=== PATIENT | female | born 1950 | race Caucasian/White ===

== ENCOUNTER → 2016-10-19 | Outpatient (CLI) | payer MEDICARE ==
--- NOTE | 2016-10-20 08:27 | US ---
EXAMINATION TYPE: US pelvic complete DATE OF EXAM: 10/19/2016 4:20 PM COMPARISON: CT and US in PACS CLINICAL HISTORY: R10.2 Pelvic pain. Previous left ovarian cyst/ pt states pelvic pain TECHNIQUE: Transabdominal (TA) Date of LMP: Age 52 EXAM MEASUREMENTS: Uterus: 7.6 x 2.4 x 3.1 cm cm Endometrial Stripe: 0.3 cm Right Ovary: 2.5 x 1.5 x 1.5 cm Left Ovary: 4.6 x 5.6 x 4.2 cm TECHNOLOGIST IMPRESSION: Pt stated bladder felt very full and did not want transvaginal at this ti me 1. Uterus: Anteverted Heterogeneous, difficult to visualize 2. Endometrium: wnl 3. Right Ovary: wnl 4. Left Ovary: Cyst= 4.1 x 3.5 x 4.6, essentially unchanged from recent CT in PACS 5. Bilateral Adnexa: wnl 6. Posterior cul-de-sac: wnl IMPRESSION: SIMPLE APPEARING, 4.6 CM LEFT OVARIAN CYST.
== END | disposition home or self-care (01) ==
LOC: RADUSWWP 16:02
PROVIDERS: ATTEND Family Medicine
DX: N83.202 Unspecified ovarian cyst, left side (principal)
CPT/HCPCS: 76856

== ENCOUNTER → 2019-07-17 | Outpatient (CLI) | payer MEDICARE ==
--- NOTE | 2019-07-18 09:40 | XR ---
Bilateral knees HISTORY: Bilateral knee pain 3 views of each knee submitted on a total of 7 images, correlation to prior right knee dated 3 There is chondrocalcinosis bilaterally. Marginal spurring present at the medial compartments, joint s pace loss present in the medial compartments. Marginal spurring also noted laterally on the right kne e greater than left. Difficult to exclude knee joint effusions in the suprapatellar region. Bone mine ralization and alignment are maintained. IMPRESSION: Correlate for crystal deposition arthropathy, osteoarthritis.
== END | disposition home or self-care (01) ==
LOC: RADXRMAIN 15:43
PROVIDERS: ATTEND Family Medicine
DX: M17.10 Unilateral primary osteoarthritis, unspecified knee (principal); M25.562 Pain in left knee; M25.561 Pain in right knee

== ENCOUNTER → 2019-08-13 | Outpatient (CLI) | payer MEDICARE ==
--- NOTE | 2019-08-13 11:06 | XR ---
EXAMINATION TYPE: XR cervical spine comp DATE OF EXAM: 08/13/2019 COMPARISON: NONE HISTORY: Pain TECHNIQUE: Four views are submitted. FINDINGS: The odontoid is intact. There are no compression deformities. The prevertebral soft tissue structur es are within normal limits. Calcification the soft tissue the neck likely vascular. There is multil evel hypertrophic and degenerative disc disease with severe changes C5-6, C6-C7. Multilevel facet art hropathy. Foraminal encroachment noted bilaterally C5-6 and C6-C7. IMPRESSION: 1. Multilevel moderate and severe degenerative disc disease with large anterior hypertrophic spurs an d multilevel foraminal encroachment. Recommend follow-up MRI.
== END | disposition home or self-care (01) ==
LOC: RADXRMAIN 10:43
PROVIDERS: ATTEND Family Medicine
DX: M50.30 Other cervical disc degeneration, unspecified cervical region (principal)
CPT/HCPCS: 72050

== ENCOUNTER 2020-01-07 00:18 | Emergency (ER) | payer MEDICARE ==
[2020-01-07 00:24] VITALS: PULSE 58; RESP 18; TEMP 98.4
[2020-01-07] MEDS ORDERED: KETOROLAC 30 MG/ML 1 ML VIAL IVP STA (00:42)
[2020-01-07] MEDS ORDERED: SODIUM CHLORIDE 0.9% 500 ML 500 ML IV STA (00:43)
[2020-01-07] MEDS ORDERED: PANTOPRAZOLE 40 MG/10 ML VIAL IVP STA (00:43)
--- NOTE | 2020-01-07 00:49 | ED ---
General Adult HPI - General Chief complaint: Headache Stated complaint: high BP Time Seen by Provider: 01/07/20 00:31 Source: patient Mode of arrival: ambulatory Limitations: no limitations - History of Present Illness Initial comments: Patient is a 70-year-old female, with history of A. fib, hypertension, presenting to the emergency department with complaints of a headache along with elevated blood pressure for the past week. Patient states she went to her PCP yesterday for a checkup and they recommended going into the ER because of her symptoms. Patient was started on a new blood pressure medication yesterday, coreg. Patient also admits that she forgot to take her thyroid medication for approximately 2 months. She restarted a few days ago. Patient also admits to mild nausea, heartburn. She states that she feels like her "heart is beating really fast and it is hard for her to sleep." She denies any chest pain, shortness of breath. She doesn't history of anxiety. She states her headache will not go away as well. She denies any recent fever, chills, cough, congestion, urinary complaints. She states she has been trying to drink water. She has no further complaints at this time. Upon arrival to the ER, her vital signs are stable. - Related Data Previous Rx's Medication Instructions Recorded Cephalexin [Keflex] 500 mg PO BID 5 Days #10 cap 01/07/20 Allergies Allergy/AdvReac Type Severity Reaction Status Date / Time amoxicillin [From Augmentin] Allergy Nausea Verified 01/07/20 00:24 clavulanic acid Allergy Nausea Verified 01/07/20 00:24 [From Augmentin] levofloxacin [From Levaquin] Allergy Nausea Verified 01/07/20 00:24 milk Allergy Nausea & Verified 01/07/20 00:24 Vomiting sulfamethoxazole Allergy Nausea Verified 01/07/20 00:24 [From Bactrim] trimethoprim [From Bactrim] Allergy Nausea Verified 01/07/20 00:24 Review of Systems ROS Statement: Those systems with pertinent positive or pertinent negative responses have been documented in the HPI. ROS Other: All systems not noted in ROS Statement are negative. Past Medical History Past Medical History: Atrial Fibrillation, Hypertension Additional Past Medical History / Comment(s): Diverticulitits History of Any Multi-Drug Resistant Organisms: None Reported Past Surgical History: Appendectomy, Cholecystectomy, Tubal Ligation Additional Past Surgical History / Comment(s): colon surgery, heart ablation Past Psychological History: No Psychological Hx Reported Smoking Status: Never smoker Past Alcohol Use History: None Reported Past Drug Use History: None Reported General Exam - General Exam Comments Initial Comments: GENERAL: Well-appearing, well-nourished and in no acute distress, appears mildly anxious. HEAD: Atraumatic, normocephalic. EYES: Pupils equal round and reactive to light, extraocular movements intact, sclera anicteric, conjunctiva are normal. ENT: TMs normal, nares patent, oropharynx clear without exudates. Moist mucous m embranes. NECK: Normal range of motion, supple without lymphadenopathy or JVD. LUNGS: Breath sounds clear to auscultation bilaterally and equal. No wheezes rales or rhonchi. HEART: Regular rate and rhythm without murmurs, rubs or gallops. ABDOMEN: Soft, nontender, normoactive bowel sounds. No guarding, no rebound. No masses appreciated. : Deferred EXTREMITIES: Normal range of motion, no pitting or edema. No clubbing or cyanosis. NEUROLOGICAL: Cranial nerves II through XII grossly intact. Normal speech, normal gait. PSYCH: Normal mood, normal affect. SKIN: Warm, Dry, normal turgor, no rashes or lesions noted. Limitations: no limitations Course Vital Signs 01/07/20 01/07/20 00:21 02:10 Temperature 98.4 F Pulse Rate 58 L Respiratory 18 Rate Blood Pressure 163/92 155/69 O2 Sat by Pulse 96 Oximetry EKG Findings - EKG Comments: EKG Findings:: Sinus bradycardia, no signs of acute ischemia. Ventricular rate 50, AK interval 152, QTC 404. Medical Decision Making - Medical Decision Making Patient is a 70-year-old female history of A. fib, hypertension presenting with headache, chest palpitations, elevated BP, heartburn for the past week. PCP started pt on coreg yesterday. She also recently restarted her thyroid medication after being without for 2 months. Vitals are stable upon arrival. Exam shows no acute findings. Chest x-ray shows no acute findings, no sign of heart failure. Lab work is unremarkable, and troponin is normal, thyroid is no rmal. Urine shows leukocyte Estrace, WBCs, bacteria. Patient was given fluids, Protonix, pain control. Patient will be given 1 g of Rocephin. I discussed with patient and her symptoms are most likely related to anxiety as well as a UTI. Patient will be started on Keflex outpatient. She is stable for discharge at this time and patient is in agreement with this plan of care. She will follow-up with her PCP. Return parameters were discussed with the patient and she verbalized understanding. Case discussed with Dr. Berg. - Lab Data Result diagrams: 01/07/20 01:01/07/20 01: Lab Results 01/07/20 01/07/20 01/07/20 Range/Units 01:01 01:01 01:01 WBC 8.9 (3.8-10.6) k/uL RBC 4.42 (3.80-5.40) m/uL Hgb 13.3 (11.4-16.0) gm/dL Hct 41.2 (34.0-46.0) % MCV 93.3 (80.0-100.0) fL MCH 30.1 (25.0-35.0) pg MCHC 32.3 (31.0-37.0) g/dL RDW 13.8 (11.5-15.5) % Plt Count 271 (150-450) k/uL Neutrophils % 76 % Lymphocytes % 15 % Monocytes % 6 % Eosinophils % 2 % Basophils % 0 % Neutrophils # 6.8 (1.3-7.7) k/uL Lymphocytes # 1.3 (1.0-4.8) k/uL Monocytes # 0.5 (0-1.0) k/uL Eosinophils # 0.2 (0-0.7) k/uL Basophils # 0.0 (0-0.2) k/uL PT 10.1 (9.0-12.0) sec INR 1.0 (<1.2) APTT 26.4 (22.0-30.0) sec Sodium 135 L (137-145) mmol/L Potassium 3.8 (3.5-5.1) mmol/L Chloride 102 (98-107) mmol/L Carbon Dioxide 28 (22-30) mmol/L Anion Gap 5 mmol/L BUN 20 H (7-17) mg/dL Creatinine 0.69 (0.52-1.04) mg/dL Est GFR (CKD-EPI)AfAm >90 (>60 ml/min/1.73 sqM) Est GFR (CKD-EPI)NonAf 87 (>60 ml/min/1.73 sqM) Glucose 127 H (74-99) mg/dL Calcium 9.1 (8.4-10.2) mg/dL Total Bilirubin 0.3 (0.2-1.3) mg/dL AST 21 (14-36) U/L ALT 22 (4-34) U/L Alkaline Phosphatase 107 (38-126) U/L Troponin I (0.000-0.034) ng/mL Total Protein 6.6 (6.3-8.2) g/dL Albumin 3.7 (3.5-5.0) g/dL TSH 3.980 (0.465-4.680) mIU/L Urine Color Urine Appearance (Clear) Urine pH (5.0-8.0) Ur Specific Wat[place] (1.001-1.035) Urine Protein (Negative) Urine Glucose (UA) (Negative) Urine Ketones (Negative) Urine Blood (Negative) Urine Nitrite (Negative) Urine Bilirubin (Negative) Urine Urobilinogen (<2.0) mg/dL Ur Leukocyte Esterase (Negative) Urine RBC (0-5) /hpf Urine WBC (0-5) /hpf Ur Squamous Epith Cells (0-4) /hpf Urine Bacteria (None) /hpf Urine Mucus (None) /hpf 01/07/20 01/07/20 Range/Units 01:01 01:25 WBC (3.8-10.6) k/uL RBC (3.80-5.40) m/uL Hgb (11.4-16.0) gm/dL Hct (34.0-46.0) % MCV (80.0-100.0) fL MCH (25.0-35.0) pg MCHC (31.0-37.0) g/dL RDW (11.5-15.5) % Plt Count (150-450) k/uL Neutrophils % % Lymphocytes % % Monocytes % % Eosinophils % % Basophils % % Neutrophils # (1.3-7.7) k/uL Lymphocytes # (1.0-4.8) k/uL Monocytes # (0-1.0) k/uL Eosinophils # (0-0.7) k/uL Basophils # (0-0.2) k/uL PT (9.0-12.0) sec INR (<1.2) APTT (22.0-30.0) sec Sodium (137-145) mmol/L Potassium (3.5-5.1) mmol/L Chloride (98-107) mmol/L Carbon Dioxide (22-30) mmol/L Anion Gap mmol/L BUN (7-17) mg/dL Creatinine (0.52-1.04) mg/dL Est GFR (CKD-EPI)AfAm (>60 ml/min/1.73 sqM) Est GFR (CKD-EPI)NonAf (>60 ml/min/1.73 sqM) Glucose (74-99) mg/dL Calcium (8.4-10.2) mg/dL Total Bilirubin (0.2-1.3) mg/dL AST (14-36) U/L ALT (4-34) U/L Alkaline Phosphatase (38-126) U/L Troponin I <0.012 (0.000-0.034) ng/mL Total Protein (6.3-8.2) g/dL Albumin (3.5-5.0) g/dL TSH (0.465-4.680) mIU/L Urine Color Yellow Urine Appearance Clear (Clear) Urine pH 6.5 (5.0-8.0) Ur Specific Wat[place] 1.023 (1.001-1.035) Urine Protein Negative (Negative) Urine Glucose (UA) Negative (Negative) Urine Ketones Negative (Negative) Urine Blood Negative (Negative) Urine Nitrite Negative (Negative) Urine Bilirubin Negative (Negative) Urine Urobilinogen <2.0 (<2.0) mg/dL Ur Leukocyte Esterase Moderate H (Negative) Urine RBC 1 (0-5) /hpf Urine WBC 18 H (0-5) /hpf Ur Squamous Epith Cells 1 (0-4) /hpf Urine Bacteria Few H (None) /hpf Urine Mucus Rare H (None) /hpf Disposition Clinical Impression: Headache, UTI (urinary tract infection), Hypertension Disposition: HOME SELF-CARE Condition: Stable Instructions (If sedation given, give patient instructions): Urinary Tract Infection in Women (ED) Additional Instructions: Please return to the Emergency Department if symptoms worsen or any other concerns. Take antibiotic as prescribed. Increase water intake. May take Tylenol or Motrin for additional headache. Follow-up with PCP. Prescriptions: Cephalexin [Keflex] 500 mg PO BID 5 Days #10 cap Is patient prescribed a controlled substance at d/c from ED?: No Referrals: Yash Suazo DO [Primary Care Provider] - 1-2 days
[2020-01-07 01:16] LABS: Basophils % (A) 0 %; Eosinophils # (A) 0.2 k/uL (0-0.7); Eosinophils % (A) 2 %; HCT 41.2 % (34.0-46.0); HGB 13.3 gm/dL (11.4-16.0); Lymphocytes # (A) 1.3 k/uL (1.0-4.8); Lymphocytes % (A) 15 %; MCH 30.1 pg (25.0-35.0); MCHC 32.3 g/dL (31.0-37.0); MCV 93.3 fL (80.0-100.0); Monocytes # (A) 0.5 k/uL (0-1.0); Monocytes % (A) 6 %; Neutrophils # (A) 6.8 k/uL (1.3-7.7); Neutrophils % (A) 76 %; Platelet Count 271 k/uL (150-450); RBC 4.42 m/uL (3.80-5.40); RDW 13.8 % (11.5-15.5); WBC 8.9 k/uL (3.8-10.6)
--- NOTE | 2020-01-07 01:24 | XR ---
EXAMINATION TYPE: XR chest 2V DATE OF EXAM: 01/07/2020 COMPARISON: NONE HISTORY: Cough and congestion TECHNIQUE: FINDINGS: There is some coarsening of interstitial markings. There is no heart failure. Heart is top normal in size. There is no pleural effusion. Bony thorax is intact. IMPRESSION: Cardiomegaly. Heart appears increased compared to old exam. No obvious heart failure. Inc reased interstitial lung markings compared to old exam.
[2020-01-07 01:25] LABS: Partial Thromboplastin Time 26.4 sec (22.0-30.0); Prothrombin Time 10.1 sec (9.0-12.0)
[2020-01-07 01:31] LABS: ALT 22 U/L (4-34); AST 21 U/L (14-36); African American GFR (CKD) >90 (>60 ml/min/1.73 sqM); Albumin 3.7 g/dL (3.5-5.0); Alkaline Phosphatase 107 U/L (38-126); Anion Gap 5 mmol/L; Blood Urea Nitrogen 20 mg/dL (7-17); Calcium 9.1 mg/dL (8.4-10.2); Carbon Dioxide 28 mmol/L (22-30); Chloride 102 mmol/L (98-107); Glucose 127 mg/dL (74-99); Non-African American GFR(CKD) 87 (>60 ml/min/1.73 sqM); Potassium 3.8 mmol/L (3.5-5.1); Sodium 135 mmol/L (137-145); Total Bilirubin 0.3 mg/dL (0.2-1.3); Total Protein 6.6 g/dL (6.3-8.2)
[2020-01-07 01:49] LABS: Appearance,Urine Clear (Clear); Bacteria,Urine Few /hpf; Bilirubin,Urine Negative (Negative); Blood,Urine Negative (Negative); Color,Urine Yellow; Glucose,Urine (UA) Negative (Negative); Ketones,Urine Negative (Negative); Leukocyte Esterase,Urine Moderate (Negative); Mucus,Urine Rare /hpf; Nitrite,Urine Negative (Negative); PH, Urine 6.5 (5.0-8.0); Protein,Urine Negative (Negative); RBC,Urine 1 /hpf (0-5); Specific Gravity,Urine 1.023 (1.001-1.035); Squamous Epithelial Cell,Urine 1 /hpf (0-4); Urobilinogen,Urine <2.0 mg/dL (<2.0); WBC,Urine 18 /hpf (0-5)
[2020-01-07] MEDS ORDERED: MORPHINE SULFATE 2 MG/ML SYRINGE IVP ONE (02:03)
[2020-01-07] MEDS ORDERED: cefTRIAXone IN SWFI 1,000 MG/10 ML SYRINGE IVP STA (02:06)
[2020-01-07 02:10] VITALS: BP 155/69
== END 2020-01-07 02:43 | disposition home or self-care (01) ==
LOC: EC 00:18
DX: R51 Headache (principal); I10 Essential (primary) hypertension; N39.0 Urinary tract infection, site not specified; R11.0 Nausea; R12 Heartburn; R00.2 Palpitations; I48.91 Unspecified atrial fibrillation; Z98.890 Other specified postprocedural states; Z88.0 Allergy status to penicillin; Z88.1 Allergy status to other antibiotic agents; Z91.011 Allergy to milk products; Z88.2 Allergy status to sulfonamides
CPT/HCPCS: 36415; 93005; 80053; 84443; 84484; 85025; 85610; 85730; 81001; 87086; 71046; 99284; 96374; 96375 ×3; 96361; J0696; J1885; J2270; C9113; 87077; 87186

== ENCOUNTER → 2020-03-30 | Outpatient (CLI) | payer MEDICARE ==
--- NOTE | 2020-03-30 14:34 | CT ---
EXAMINATION TYPE: CT abdomen pelvis wo con DATE OF EXAM: 03/30/2020 HISTORY: Abdomen and pelvic pain, mesh evaluation and cyst on ovary CT DLP: 1745.80 mGycm. Automated Exposure Control for Dose Reduction was Utilized. TECHNIQUE: CT scan of the abdomen and pelvis is performed with oral but without IV contrast. COMPARISON: CT abdomen and pelvis October 18, [address] pelvis May 30, 2016 FINDINGS: Within the limitations of a non-contrast study, the following observations are made. LUNG BASES: No significant abnormality is appreciated. LIVER/GB: Cholecystectomy clips are redemonstrated. PANCREAS: No significant abnormality is seen. SPLEEN: Peripheral linear calcification spleen axial image 23 redemonstrated perhaps related to old t rauma. ADRENALS: No significant abnormality is seen. KIDNEYS: Some cortical thinning in both kidneys presumed product of chronic medical renal disease. BOWEL: Oral contrast reaches level of the proximal right colon. Suboptimal evaluation of majority of bowel noted. Patient only able to tolerate one dose of contrast. No suspicious small or large bowel d ilatation. Stomach poorly distended and thus suboptimally evaluated. Sutures at level of the mid to distal sigmo id colon on axial image 70. There are diverticula in the proximal to mid sigmoid colon. There is mode rate prominence of fecal material in the level of the splenic flexure. Areas of mild wall thickening distal transverse colon and distal right colon near hepatic flexure are present. There is ovoid 1.5 c m low dense lesion distal transverse colon could reflect ingested fat dense pill new from 2010 study or possible colonic lipoma with some wall thickening of the transverse colon proximal to this and tra nsition point identified. GENITAL ORGANS: Anteverted uterus. Left ovary asymmetrically enlarged with 4.1 x 2.3 cm left adnexal lesion is stable or slightly smaller from 2016 CT and is thus presumed benign. LYMPH NODES: No greater than 1cm abdominal or pelvic lymph nodes are appreciated. OSSEOUS STRUCTURES: [id number] multilevel spurring in the lumbar spine. Multilevel moderate d isc space narrowing and vacuum disc phenomenon. Multilevel facet arthropathy. OTHER: Prior ventral wall hernia repair surgery with curvilinear mesh noted. No new hernia defect clemente ntified. Scarring along inferior aspect of mesh is present. IMPRESSION: No recurrent ventral wall hernia. Possible minimal mild multiple focal areas of uncomplic ated colitis, correlate clinically. Stable or slightly smaller left ovarian lesion from 2016 is thus favoring benign etiology.
== END | disposition home or self-care (01) ==
LOC: RADCTMAIN 12:44
PROVIDERS: ATTEND Family Medicine
DX: R10.2 Pelvic and perineal pain (principal); R10.9 Unspecified abdominal pain
CPT/HCPCS: 74176

== ENCOUNTER → 2021-07-07 | Outpatient (CLI) | payer MEDICARE ==
--- NOTE | 2021-07-07 15:44 | XR ---
EXAM TYPE: LUMBAR SPINE X RAY SERIES COMPARISON: NONE HISTORY: Pain TECHNIQUE: 4 views are submitted. FINDINGS: Alignment is anatomic. The pedicles are intact. The transverse processes are intact. There is mult ilevel severe degenerative disc disease with large hypertrophic spurring advanced facet arthropathy r esult in multilevel foraminal encroachment. No compression deformities. Surgical clips in the gallbla dder fossa. No spondylolisthesis. No spondylolysis. IMPRESSION: 1. Severe multilevel degenerative disc disease and advanced facet arthropathy. Multilevel significant foraminal encroachment suspected.
== END | disposition home or self-care (01) ==
LOC: RADXRMAIN 15:22
PROVIDERS: ATTEND Family Medicine
DX: M51.37 Other intervertebral disc degeneration, lumbosacral region (principal); M46.97 Unspecified inflammatory spondylopathy, lumbosacral region
CPT/HCPCS: 72110

== ENCOUNTER 2021-08-26 10:11 | Inpatient (IN) | payer MEDICARE ==
[2021-08-26] MEDS ORDERED: SODIUM CHLORIDE 0.9% 1,000 ML IV ONE (11:05)
[2021-08-26] MEDS ORDERED: ALPRAZolam 0.5 MG TAB PO PRN (11:07)
[2021-08-26] MEDS ORDERED: ATORVASTATIN 80 MG TAB PO STA (11:07)
[2021-08-26] MEDS ORDERED: ASPIRIN 325 MG TAB PO STA (11:07)
[2021-08-26] MEDS ORDERED: ALPRAZolam 0.25 MG TAB PO PRN (11:07)
[2021-08-26] MEDS ORDERED: NITROGLYCERIN SL TABS 0.4 MG TAB SUBLINGUAL PRN (11:07)
[2021-08-26] MEDS ORDERED: fentaNYL (PF) 50 MCG/ML 2 ML AMP IVP ONE (11:15)
[2021-08-26] MEDS ORDERED: fentaNYL (PF) 50 MCG/ML 2 ML AMP ONE (11:16)
[2021-08-26] MEDS ORDERED: ASPIRIN 81 MG ONE (12:00)
[2021-08-26] MEDS: HEPARIN SODIUM 1,000 UN/ML (10ML VL) IV ONE ×3 (12:42→13:08)
[2021-08-26] MEDS ORDERED: MIDAZOLAM 2 MG/2 ML VIAL IV ONE (12:45)
--- NOTE | 2021-08-26 12:59 | P.HPIM ---
History of Present Illness H&P Date: 08/26/21 71 years old female patient of Dr. Suazo with past medical history of atrial fibrillation with ablation [address] madden at [facility], history of asthma C Dr. Barroso, hypothyroidism hypertension depression with anxiety as well as GERD came into [facility] with dyspnea on exertion. She was T treated at outpatient by her doctor but Keflex is sinus infection. Since patient had no improvement patient came to the hospital. Patient did not come to the hospital until 08/24 to come to the hospital since he was concerned she will have COVID. Patient has not vaccinated. EKG was concerning for guidance normal sinus rhythm with some ST changes in the anterior leads concerning for old infarct patient was noted to have low potassium and low magnesium which was corrected. Chest x-ray showed multiple new infiltrate concerning for atypical pneumonia. COVID was negative troponin was mildly elevated. Patient was initiated on Rocephin and azithromycin. Cardiology was consulted. Patient had cardiac cath with Dr. Silva and was immediately transferred to [facility] for coronary angioplasty with stent placement. Patient is currently chest pain-free status she does have mild cough that kept her awake all night. We will initiate patient on Rocephin and azithromycin with Tessalon Perles and Mucinex for cough. Patient is nothing by mouth for cardiac angioplasty ROS Constitutional: Denies chills, Denies fever, Denies lethargy, Denies malaise, Denies poor appetite, Denies weakness, Denies weight loss Eyes: denies decreased vision, denies diplopia, denies discharge, denies pain Ears: deny: decreased hearing Ears, nose, mouth and throat: Denies dental pain, Denies headache, Denies nasal discharge, Denies nose pain Cardiovascular: Denies chest pain, Denies decreased exercise tolerance, Denies edema, Denies high blood pressure, Denies irregular heart beat, Denies palpitations, Denies paroxysmal nocturnal dyspnea, Denies rapid heart beat, Denies shortness of breath Respiratory: Denies congestion, endorses cough, Denies cough with sputum, endorses dyspnea, Denies home oxygen, Denies wheezing Gastrointestinal: Denies abdominal pain, Denies change in bowel habits, Denies coffee ground emesis, Denies early satiety, Denies excessive gas, Denies heartburn, Denies hematemesis, Denies hematochezia, Denies loss of appetite, Denies nausea, Denies vomiting Genitourinary: Denies dysuria, Denies flank pain, Denies kidney stones, Denies menorrhagia, Denies urgency, Denies urinary frequency Musculoskeletal: Denies gait dysfunction, Denies limitation of motion, Denies morning stiffness, Denies muscle cramps Integumentary: Denies rash, Denies wounds, Denies brittle nails, Denies change in hair/nails, Denies darkening of skin Neurological: Denies balance difficulties, Denies change in speech, Denies double vision, Denies gait dysfunction, Denies loss of vision, Denies motor disturbance, Denies numbness, Denies paralysis, Denies paresthesias, Denies seizures Psychiatric: Denies anxiety, Denies depression Endocrine: Denies excessive sweating, Denies excessive thirst, Denies high blood sugars, Denies palpitations Hematologic/Lymphatic: Denies easy bruising, Denies lymphadenopathy Social history Patient is a nonsmoker and does not drink alcohol matted no home oxygen and nebulizer no CPAP Family history Mother age 89 from A. fib and COPD father age 74 from stomach cancer 4 brothers and 2 sisters reports held the 4 children reported help Physical exam - Constitutional General appearance: Very pleasant cooperative, no acute distress, appears stated age - EENT Eyes: anicteric sclerae, PERRLA, normal appearance ENT: hearing grossly normal - Neck Neck: no lymphadenopathy, normal ROM, no other, no rigidity, no stridor, no thyromegaly - Respiratory Respiratory: bilateral: CTA, negative: diminished, dullness, rales, rhonchi - Cardiovascular Rhythm: regular Heart sounds: normal: S1, S2 Abnormal Heart Sounds: 2/5 systolic murmur, no diastolic murmur, no rub, no S3 Gallop, no S4 Gallop, no click, no other - Gastrointestinal General gastrointestinal: normal bowel sounds, soft - Integumentary Integumentary: no rash - Neurologic Neurologic: No motor or sensory deficit - Musculoskeletal Musculoskeletal: gait normal, strength equal bilaterally - Psychiatric Psychiatric: A&O x's 3, appropriate affect Assessment and plan #1 gram-negative pneumonia with acute shortness of breath, COVID negative with chest x-ray considering for atypical pneumonia continue Rocephin and azithromycin. Continue oxygen supplementation to give SpO2 more than 90% #2 NSTEMI troponin elevation in cardiac cath abnormal. Patient is planned for cardiac angioplasty with stent placement #3 paroxysmal atrial fibrillation continue atenolol/chlorthalidone. Continue Eliquis 5 twice a day #4 asthma DuoNeb as needed for shortness of breath not in exacerbation #5 GERD continue Protonix 40 mg by mouth daily. Carafate 500 mg twice a day #6 hypothyroidism continue levothyroxine 2 by mouth daily #7 depression continue Zoloft at 50 mg daily #8 CODE STATUS full code #9 disposition patient with at least 1-2 inpatient nights for cardiac stabilization Past Medical History Past Medical History: Atrial Fibrillation, Hypertension Additional Past Medical History / Comment(s): Diverticulitits History of Any Multi-Drug Resistant Organisms: None Reported Past Surgical History: Appendectomy, Cholecystectomy, Tubal Ligation Additional Past Surgical History / Comment(s): colon surgery, heart ablation Past Psychological History: No Psychological Hx Reported Past Alcohol Use History: None Reported Past Drug Use History: None Reported Medications and Allergies Home Medications Medication Instructions Recorded Confirmed Type Apixaban [Eliquis] 5 mg PO BID 08/26/21 08/26/21 History Aspirin 81 mg PO DAILY 08/26/21 08/26/21 History Atenolol/Chlorthalidone [Tenoretic 1 each PO DAILY 08/26/21 08/26/21 History 50 Tablet] Ergocalciferol [Vitamin D2 (1250 1,250 mcg PO DAILY 08/26/21 08/26/21 History Mcg = 16850 Iu)] Furosemide [Lasix] 20 mg PO DAILY 08/26/21 08/26/21 History Levothyroxine Sodium 25 mcg PO DAILY 08/26/21 08/26/21 History Magnesium 500 mg PO DAILY 08/26/21 08/26/21 History Pantoprazole [Protonix] 40 mg PO DAILY 08/26/21 08/26/21 History Sertraline HCl [Zoloft] 50 mg PO DAILY 08/26/21 08/26/21 History Sucralfate [Carafate] 1 gm PO BID 08/26/21 08/26/21 History Allergies Allergy/AdvReac Type Severity Reaction Status Date / Time amoxicillin [From Augmentin] Allergy Nausea Verified 01/07/20 00:24 clarithromycin [From Biaxin] Allergy Nausea & Verified 08/26/21 11:27 Vomiting clavulanic acid Allergy Nausea Verified 01/07/20 00:24 [From Augmentin] levofloxacin [From Levaquin] Allergy Nausea Verified 01/07/20 00:24 milk Allergy Nausea & Verified 01/07/20 00:24 Vomiting nitrofurantoin Allergy Nausea & Verified 08/26/21 11:27 [From Macrobid] Vomiting sulfamethoxazole Allergy Nausea Verified 01/07/20 00:24 [From Bactrim] trimethoprim [From Bactrim] Allergy Nausea Verified 01/07/20 00:24 Physical Exam Vitals: Vital Signs Temp Pulse Resp BP BP Pulse Ox 08/26/21 12:04 48 L 18 141/64 133/56 97 08/26/21 11:44 98 F 50 L 18 162/70 158/70 97 Intake and Output 08/25/21 08/26/21 08/26/21 22:59 06:59 14:59 Intake Total 75 Balance 75 Intake: IV 75 Other: Weight 107.955 kg
[2021-08-26] MEDS ORDERED: IOPAMIDOL-370 125ML BTL INJ ONE (13:09)
--- NOTE | 2021-08-26 13:22 | P.PRCINT ---
Percutaneous Coronary Int. - Percutaneous Coronary Intervention Percutaneous Coronary Intervention: PROCEDURES PERFORMED: Right coronary angiography, PCI RCA with a 3.0 x 8 mm Xience REMI, post dilated with a 3.5 NC balloon INDICATION: Non-STEMI HISTORY: Patient is pleasant 71-year-old female with history of atrial f ibrillation, sinus bradycardia and CAT scan showing concern of multivessel CAD from 2017. She presented with symptoms of fatigue over last few weeks however additionally has been having some discomfort and shortness of breath whenever she exerts herself. She was found to have minimally elevated troponins and had a diagnostic heart catheterization at [facility] which showed mild disease on the left and a 80% stenosis of the RCA. Therefore recommendation was for PCI. CONSENT:I have discussed the risks, benefits and alternative therapies for the above-mentioned procedure and for both sedation/analgesia as well as necessary blood product administration, if indicated, as they pertain to this patient. The patient has indicated understanding and acceptance of the risks and pro cedures discussed. PROCEDURE: After the risks, benefits and alternatives of the above mentioned procedure explained in detail with the patient, informed consent was obtained. Patient was taken to the catheterization lab and prepped and draped in usual fashion. A right radial sheath that artery been placed. There was some difficulty previously with advancing through the elbow with a radial loop noted. This was traversed with a 0.014 BMW wire and a FR4 catheter. This was then exchanged for a AL 0.75 guide. Heparin was given. A 0.014 BMW wire was advanced into the distal RCA. Direct stenting was performed with a 3.0 x 8 mm Xience REMI. The stent was mildly under expanded and therefore a 3.5 x 8 mm noncompliant balloon was used to post dilate. The wire was withdrawn and final angiograms were performed. Pre-intervention there is CUAUHTEMOC-3 flow and 80% stenosis and postintervention there was CUAUHTEMOC 3 flow and less than 10% stenosis with no dissection. The right radial sheath was removed and a TR band was placed with hemostasis achieved. The patient tolerated the procedure well. Patient was transported back to the post catheterization holding area in stable condition. Conscious Sedation: Patient was monitored under the direct supervision of vision of myself for conscious sedation using Versed and fentanyl for a total duration of 26 minutes SELECTIVE CORONARY ARTERIOGRAPHY: LEFT MAIN: Not imaged, see diagnostic cath report. LEFT ANTERIOR DESCENDING CORONARY ARTERY: Not imaged, see diagnostic cath report. LEFT CIRCUMFLEX CORONARY ARTERY: Not imaged, see diagnostic cath report. RIGHT CORONARY ARTERY: The right coronary artery is a large caliber vessel which gives off a PDA and PLV branch and is the dominant vessel. There is a focal 80% proximal to mid RCA stenosis and otherwise mild luminal irregularities. FINAL IMPRESSION: 1. CAD as described above with 80% proximal to mid RCA stenosis, s/p PCI with a 3.0 x 8mm Xience REMI, post dilated with a 3.5 NC balloon PLAN: 1. Aggressive risk factor modification per most recent ACC/AHA guidelines. 2. Continue dual antiplatelets for 12 months.
[2021-08-26] MEDS ORDERED: ZOLPIDEM 5 MG TAB PO PRN (14:19)
[2021-08-26] MEDS ORDERED: RX INFO: IV CONTRAST WAS GIVEN 1 EACH MISC MISCELLANE PRN (14:19)
[2021-08-26] MEDS ORDERED: ATROPINE SULFATE 0.1 MG/ML 10ML SYRINGE IV PRN (14:19)
[2021-08-26] MEDS ORDERED: MAG HYDROX/AL HYDROX/SIMETH 30 ML CUP PO PRN (14:19)
[2021-08-26] MEDS ORDERED: SODIUM CHLORIDE 0.9% 1,000 ML in EMPTY BAG 1 BAG IV SCH (14:30)
[2021-08-26] MEDS: SODIUM CHLORIDE 0.9% 1,000 ML in EMPTY BAG 1 BAG IV SCH ×2 (16:22→22:50)
[2021-08-26] MEDS: BENZONATATE 100 MG CAP PO SCH ×2 (16:26→21:35)
[2021-08-26 17:42] VITALS: BMI 39.6
[2021-08-26] MEDS: guaiFENesin 600 MG TABLET.ER PO SCH (20:37)
[2021-08-26] MEDS: SUCRALFATE 1 GM TAB PO SCH (20:37)
[2021-08-26] MEDS ORDERED: ACETAMINOPHEN TAB 325 MG TAB PO PRN (21:09)
[2021-08-26] MEDS: SERTRALINE 50 MG TAB PO SCH (22:47)
[2021-08-27] MEDS: APIXABAN 5 MG TAB PO SCH ×3 (01:27→21:35)
[2021-08-27] MEDS: LEVOTHYROXINE 25 MCG TAB PO SCH (05:59)
[2021-08-27] MEDS: SODIUM CHLORIDE 0.9% 1,000 ML in EMPTY BAG 1 BAG IV SCH ×2 (06:02→18:21)
[2021-08-27] MEDS ORDERED: SERTRALINE 50 MG TAB PO SCH (09:00)
[2021-08-27] MEDS: guaiFENesin 600 MG TABLET.ER PO SCH ×2 (09:00→21:35)
[2021-08-27] MEDS: AZITHROMYCIN 500 MG TAB PO SCH (09:01)
[2021-08-27] MEDS: CLOPIDOGREL 75 MG TAB PO SCH (09:01)
[2021-08-27] MEDS: ASPIRIN 81 MG PO SCH (09:03)
[2021-08-27] MEDS: BENZONATATE 100 MG CAP PO SCH ×3 (09:04→21:35)
[2021-08-27] MEDS: MAGNESIUM OXIDE 400 MG TAB PO SCH (09:04)
[2021-08-27] MEDS: PANTOPRAZOLE 40 MG TABLET PO SCH (09:05)
[2021-08-27] MEDS: SUCRALFATE 1 GM TAB PO SCH ×2 (09:06→21:36)
[2021-08-27] MEDS: ERGOCALCIFEROL 1,250 MCG (50,000 IU) CAPSULE PO SCH (09:16)
--- NOTE | 2021-08-27 14:39 | P.PN ---
Subjective Progress Note Date: 08/27/21 Patient is pleasant 71-year-old female with history of atrial fibrillation, sinus bradycardia and CAT scan showing concern of multivessel CAD from 2017. She presented with symptoms of fatigue over last few weeks however additionally has been having some discomfort and shortness of breath whenever she exerts herself. She was found to have minimally elevated troponins and had a diagnostic heart catheterization at [facility] which showed mild disease on the left and a 80% stenosis of the RCA. Patient was transferred from [facility] here and received PCI to the proximal to mid RCA. Patient was continued on Eliquis for anticoagulation for atrial fib, Lasix and aspirin for dual antiplatelet therapy. Continue on atorvastatin 80 mg At this time patient will be started on beta reji due to bradycardia with a heart rate in the 40s and 50s. Will start patient on an KIM inhibitor, lisinopril 10 mg daily. Blood pressure is 136/77. Patient's echocardiogram is pending. Patient is seen today resting in bed comfortably with no signs of acute distress, asking when she'll be able to go home. She denies chest pain, palpitations, dyspnea, dizziness, syncope, or edema. Objective - Vital Signs Vital signs: Vital Signs Temp 98 F 08/27/21 08:00 Pulse 60 08/27/21 08:00 Resp 18 08/27/21 08:00 BP 136/77 08/27/21 08:00 Pulse Ox 95 08/27/21 08:00 Intake & Output 08/26/21 08/27/21 08/27/21 18:59 06:59 18:59 Intake Total 300 360 Balance 300 360 Weight 107.955 kg Intake: IV 300 Oral 360 Other: Voiding Method Toilet # Voids 1 2 - Exam PHYSICAL EXAM: VITAL SIGNS: Reviewed. GENERAL: Well-developed in no acute distress. HEENT: Head is normocephalic. Pupils are equal, round. Sclerae anicteric. Mucous membranes of the mouth are moist. NECK: Supple. No JVD or thyromegaly RESPIRATORY: Respirations even and unlabored. Lungs diminished to auscultation bilaterally. CARDIO: Regular rate and rhythm. S1 and S2 heard. No murmur or gallops. EXTREMITIES: Normal range of motion. No clubbing or cyanosis. Peripheral pulses intact. Negative for bilateral lower extremity edema NEURO: Orientated to person, time, mood is appropriate Assessment and Plan Assessment: Acute non-STEMI, status post PCI to the proximal and mid RCA Coronary artery disease Persistent atrial fibrillation Asymptomatic bradycardia Hypertension Plan: Will obtain a 2-D echo Continue on dual antiplatelet therapy Continue on statin Continue on I will request for anticoagulation Hold beta reji due to bradycardia Start lisinopril 10 mg daily Continue to monitor vital signs, I&Os, cardiac rhythm Continue with telemetry monitoring Possibly home tomorrow Further recommendations based on clinical course The above impression and plan of care have been discussed and directed by the signing physician. Chantale Contreras, nurse practitioner, acting as scribe for signing physician.
[2021-08-27 15:58] LABS: Albumin 2.9 g/dL (3.5-5.0); Calcium 8.6 mg/dL (8.4-10.2); Potassium 4.3 mmol/L (3.5-5.1); Total Bilirubin 0.3 mg/dL (0.2-1.3); Total Protein 5.7 g/dL (6.3-8.2)
[2021-08-27 16:11] LABS: Basophils % (A) 0 %; Eosinophils # (A) 0.1 k/uL (0-0.7); Eosinophils % (A) 2 %; HCT 33.7 % (34.0-46.0); Lymphocytes # (A) 1.2 k/uL (1.0-4.8); Lymphocytes % (A) 17 %; MCH 31.2 pg (25.0-35.0); MCHC 32.5 g/dL (31.0-37.0); MCV 96.1 fL (80.0-100.0); Mean Platelet Volume 8.1; Monocytes # (A) 0.5 k/uL (0-1.0); Monocytes % (A) 7 %; Neutrophils # (A) 5.1 k/uL (1.3-7.7); Neutrophils % (A) 70 %; Platelet Count 271 k/uL (150-450); RBC 3.51 m/uL (3.80-5.40); RDW 15.2 % (11.5-15.5); WBC 7.2 k/uL (3.8-10.6)
[2021-08-27] MEDS ORDERED: FLUTICASONE 50MCG/SPRAY NASAL 16GM EA NOSTRIL PRN (17:30)
--- NOTE | 2021-08-27 17:37 | P.PN ---
Subjective Progress Note Date: 08/27/21 71 years old female patient of Dr. Suazo with past medical history of atrial fibrillation with ablation [address] madden at [facility], history of asthma C Dr. Barroso, hypothyroidism hypertension depression with anxiety as well as GERD came into [facility] with d yspnea on exertion. She was T treated at outpatient by her doctor but Keflex is sinus infection. Since patient had no improvement patient came to the hospital. Patient did not come to the hospital until 08/24 to come to the hospital since he was concerned she will have COVID. Patient has not vaccinated. EKG was concerning for guidance normal sinus rhythm with some ST changes in the anterior leads concerning for old infarct patient was noted to have low potassium and low magnesium which was corrected. Chest x-ray showed multiple new infiltrate concerning for atypical pneumonia. COVID was negative troponin was mildly elevated. Patient was initiated on Rocephin and azithromycin. Cardiology was consulted. Patient had cardiac cath with Dr. Silva and was immediately transferred to [facility] for coronary angioplasty with stent placement. Patient is currently chest pain-free status she does have mild cough that kept her awake all night. We will initiate patient on Rocephin and azithromycin with Tessalon Perles and Mucinex for cough. Patient is nothing by mouth for cardiac angioplasty 08/27 patient examined that site. She underwent cardiac angioplasty of proximal and mid RCA. Patient is asymptomatic does complain of cough production with phlegm. She is also complaining of significant left ear pain with drainage. Denies ear fullness or conduction loss. Her vitals are stable blood pressure 124/66 and liver enzymes are normal ROS Constitutional: Denies chills, Denies fever, Denies lethargy, Denies malaise, Denies poor appetite, Denies weakness, Denies weight loss Eyes: denies decreased vision, denies diplopia, denies discharge, denies pain Ears: Ear pain with drainage Ears, nose, mouth and throat: Denies dental pain, Denies headache, Denies nasal discharge, Denies nose pain Cardiovascular: Denies chest pain, Denies decreased exercise tolerance, Denies edema, Denies high blood pressure, Denies irregular heart beat, Denies palpitations, Denies paroxysmal nocturnal dyspnea, Denies rapid heart beat, Denies shortness of breath Respiratory: Denies congestion, endorses cough, Denies cough with sputum, endorses dyspnea, Denies home oxygen, Denies wheezing Gastrointestinal: Denies abdominal pain, Denies change in bowel habits, Denies coffee ground emesis, Denies early satiety, Denies excessive gas, Denies heartburn, Denies hematemesis, Denies hematochezia, Denies loss of appetite, Denies nausea, Denies vomiting Genitourinary: Denies dysuria, Denies flank pain, Denies kidney stones, Denies menorrhagia, Denies urgency, Denies urinary frequency Musculoskeletal: Denies gait dysfunction, Denies limitation of motion, Denies morning stiffness, Denies muscle cramps Integumentary: Denies rash, Denies wounds, Denies brittle nails, Denies change in hair/nails, Denies darkening of skin Physical exam - Constitutional General appearance: Very pleasant cooperative, no acute distress, appears stated age - EENT Eyes: anicteric sclerae, PERRLA, normal appearance ENT: hearing grossly normal, eardrum mildly retracted no fluid noted no otitis externa noted mild otitis media - Neck Neck: no lymphadenopathy, normal ROM, no other, no rigidity, no stridor, no thyromegaly - Respiratory Respiratory: bilateral: CTA, negative: diminished, dullness, rales, rhonchi - Cardiovascular Rhythm: regular Heart sounds: normal: S1, S2 Abnormal Heart Sounds: 2/5 systolic murmur, no diastolic murmur, no rub, no S3 Gallop, no S4 Gallop, no click, no other - Gastrointestinal General gastrointestinal: normal bowel sounds, soft - Integumentary Integumentary: no rash or site of entry without any gross or swelling - Neurologic Neurologic: No motor or sensory deficit - Musculoskeletal Musculoskeletal: gait normal, strength equal bilaterally - Psychiatric Psychiatric: A&O x's 3, appropriate affect Assessment and plan #1 gram-negative pneumonia with acute shortness of breath, it was ordered COVID negative with chest x-ray considering for atypical pneumonia continue Rocephin and azithromycin. Continue oxygen supplementation to give SpO2 more than 90%. Continue Mucinex 1200 twice a day #2 acute otitis media ofloxacin ear drops for the left ear with Claritin 10 mg by mouth daily Flonase twice daily #3 acute NSTEMI date is post-PCI proximal and mid RCA echocardiogram today. Lisinopril 10 mg by mouth daily #4 paroxysmal atrial fibrillation continue atenolol/chlorthalidone. Continue Eliquis 5 twice a day #5 asthma DuoNeb as needed for shortness of breath not in exacerbation #6 GERD continue Protonix 40 mg by mouth daily. Carafate 500 mg twice a day #7 hypothyroidism continue levothyroxine 2 by mouth daily #7 depression continue Zoloft at 50 mg daily #8 CODE STATUS full code #9 disposition likely discharge tomorrow Objective - Vital Signs Vital signs: Vital Signs Temp 97.9 F 08/27/21 12:00 Pulse 66 08/27/21 12:00 Resp 18 08/27/21 12:00 BP 124/66 08/27/21 12:00 Pulse Ox 97 08/27/21 12:00 Intake & Output 08/26/21 08/27/21 08/27/21 18:59 06:59 18:59 Intake Total 300 360 Balance 300 360 Weight 107.955 kg Intake: IV 300 Oral 360 Other: Voiding Method Toilet # Voids 1 2 - Labs CBC & Chem 7: 08/27/21 14:43 08/27/21 14:43 Labs: Abnormal Lab Results - Last 24 Hours (Table) 08/27/21 08/27/21 Range/Units 14:43 14:43 RBC 3.51 L (3.80-5.40) m/uL Hgb 11.0 L (11.4-16.0) gm/dL Hct 33.7 L (34.0-46.0) % Chloride 111 H (98-107) mmol/L Glucose 103 H (74-99) mg/dL Total Protein 5.7 L (6.3-8.2) g/dL Albumin 2.9 L (3.5-5.0) g/dL
--- NOTE | 2021-08-27 18:07 | XR ---
EXAMINATION TYPE: XR chest 2V DATE OF EXAM: 08/27/2021 COMPARISON: NONE HISTORY: Cough TECHNIQUE: 2 views FINDINGS: Heart is normal. There is a mild infiltrate in the left lower lobe. Right lung is clear. Th ere is no heart failure. There are no hilar masses. There are chest leads. Bony thorax is intact. IMPRESSION: There is a new mild pneumonia in the left lower lobe compared to old exam. Normal heart.
[2021-08-27] MEDS: OFLOXACIN 0.3% OPHTH DROPS 5 ML BOTTLE LEFT EAR SCH (18:20)
[2021-08-27] MEDS: LORATADINE 10 MG TAB PO SCH (18:20)
[2021-08-27] MEDS: lisinopriL 10 MG TAB PO SCH (18:21)
[2021-08-27] MEDS: SERTRALINE 50 MG TAB PO SCH (21:36)
[2021-08-28] MEDS: SODIUM CHLORIDE 0.9% 1,000 ML in EMPTY BAG 1 BAG IV SCH ×2 (04:53→10:48)
[2021-08-28] MEDS: LEVOTHYROXINE 25 MCG TAB PO SCH (06:01)
[2021-08-28] MEDS: CLOPIDOGREL 75 MG TAB PO SCH (07:56)
[2021-08-28] MEDS: ASPIRIN 81 MG PO SCH (07:56)
[2021-08-28] MEDS: guaiFENesin 600 MG TABLET.ER PO SCH (07:57)
[2021-08-28] MEDS: BENZONATATE 100 MG CAP PO SCH (07:57)
[2021-08-28] MEDS: ERGOCALCIFEROL 1,250 MCG (50,000 IU) CAPSULE PO SCH (07:57)
[2021-08-28] MEDS: APIXABAN 5 MG TAB PO SCH (07:58)
[2021-08-28] MEDS: LORATADINE 10 MG TAB PO SCH (07:58)
[2021-08-28] MEDS: AZITHROMYCIN 500 MG TAB PO SCH (07:58)
[2021-08-28] MEDS: SUCRALFATE 1 GM TAB PO SCH (07:59)
[2021-08-28] MEDS: lisinopriL 10 MG TAB PO SCH (08:01)
[2021-08-28] MEDS: MAGNESIUM OXIDE 400 MG TAB PO SCH (08:06)
[2021-08-28] MEDS: PANTOPRAZOLE 40 MG TABLET PO SCH (08:07)
[2021-08-28] MEDS: OFLOXACIN 0.3% OPHTH DROPS 5 ML BOTTLE LEFT EAR SCH (08:11)
[2021-08-28 08:13] VITALS: TEMP 98
[2021-08-28 08:39] LABS: Basophils % (A) 1 %; Eosinophils # (A) 0.2 k/uL (0-0.7); Eosinophils % (A) 3 %; HGB 11.8 gm/dL (11.4-16.0); Lymphocytes # (A) 1.7 k/uL (1.0-4.8); Lymphocytes % (A) 23 %; MCH 31.5 pg (25.0-35.0); MCHC 32.9 g/dL (31.0-37.0); MCV 95.8 fL (80.0-100.0); Mean Platelet Volume 7.7; Monocytes # (A) 0.5 k/uL (0-1.0); Monocytes % (A) 6 %; Neutrophils % (A) 66 %; Platelet Count 278 k/uL (150-450); RBC 3.75 m/uL (3.80-5.40); RDW 14.7 % (11.5-15.5); WBC 7.5 k/uL (3.8-10.6)
[2021-08-28 09:14] LABS: Calcium 8.9 mg/dL (8.4-10.2); Potassium 3.9 mmol/L (3.5-5.1)
--- NOTE | 2021-08-28 14:00 | ECHOF ---
Referral Reason:CAD MEASUREMENTS -------- HEIGHT: 165.1 cm WEIGHT: 108.0 kg BP: RVIDd: 3.6 cm (< 3.3) IVSd: 0.9 cm (0.6 - 1.1) LVIDd: 5.7 cm (3.9 - 5.3) LVPWd: 1.4 cm (0.6 - 1.1) IVSs: 1.1 cm LVIDs: 3.8 cm LVPWs: 1.5 cm LA Diam: 4.2 cm (2.7 - 3.8) LAESV Index (A-L): 42.91 ml/m Ao Diam: 3.1 cm (2.0 - 3.7) AV Cusp: 1.5 cm (1.5 - 2.6) LA Diam: 4.0 cm (2.7 - 3.8) MV EXCURSION: 21.518 mm (> 18.000) MV EF SLOPE: 113 mm/s (70 - 150) EPSS: 0.7 cm MV E Gael: 0.77 m/s MV DecT: 150 ms MV A Gael: 0.38 m/s MV E/A Ratio: 2.05 RAP: 5.00 mmHg RVSP: 25.48 mmHg FINDINGS -------- Sinus rhythm. This was a technically good study. The left ventricular size is normal. Left ventricular wall thickness is normal. Overall left vent ricular systolic function is low-normal with, an EF between 50 - 55 %. The right ventricle is normal in size. LA is severely dilated >40 ml/m2 The right atrial size is normal. The aortic valve is trileaflet, and appears structurally normal. No aortic stenosis or regurgitation. Mild mitral regurgitation is present. Mild tricuspid regurgitation present. Right ventricular systolic pressure is normal at < 35 mmHg. Trace/mild (physiologic) pulmonic regurgitation. Echo free space indicative of a pericardial fat pad. CONCLUSIONS -------- 1. The left ventricular size is normal. 2. Left ventricular wall thickness is normal. 3. Overall left ventricular systolic function is low-normal with, an EF between 50 - 55 %. 4. The right ventricle is normal in size. 5. LA is severely dilated >40 ml/m2 6. The right atrial size is normal. 7. The aortic valve is trileaflet, and appears structurally normal. No aortic stenosis or regurgitati on. 8. Mild mitral regurgitation is present. 9. Mild tricuspid regurgitation present. 10. Trace/mild (physiologic) pulmonic regurgitation. 11. Echo free space indicative of a pericardial fat pad. PLANE TABLEMAN: Lexy Guevara RDCS
--- NOTE | 2021-08-28 14:24 | P.PN ---
Subjective Progress Note Date: 08/28/21 Patient is pleasant 71-year-old female with history of atrial fibrillation, sinus bradycardia and CAT scan showing concern of multivessel CAD from 2017. She presented with symptoms of fatigue over last few weeks however additionally has been having some discomfort and shortness of breath whenever she exerts herself. She was found to have minimally elevated troponins and had a diagnostic heart catheterization at [facility] which showed mild disease on the left and a 80% stenosis of the RCA. Patient was transferred from [facility] here and received PCI to the proximal to mid RCA. Patient was continued on Eliquis for anticoagulation for atrial fib, Lasix and aspirin for dual antiplatelet therapy. Continue on atorvastatin 80 mg At this time patient will be started on beta reji due to bradycardia with a heart rate in the 40s and 50s. Patient will not be started on a statin due to intolerance, she says she has tried 3 different statins and she is unable to tolerate she gets horrible leg cramps after about a week of being on them. Continue on lisinopril 10 mg daily. Blood pressure is well-controlled Patient's echocardiogram is pending. Will review echo results results with patient in the office. Patient is seen today resting in bed comfortably with no signs of acute distress. She denies chest pain, palpitations, dyspnea, dizziness, syncope, or edema. She will be discharged home today. Follow-up in the office with Dr. Silva Objective - Vital Signs Vital signs: Vital Signs Temp 98 F 08/28/21 08:00 Pulse 84 08/28/21 08:00 Resp 18 08/28/21 08:00 BP 134/65 08/28/21 08:00 Pulse Ox 95 08/28/21 08:00 Intake & Output 08/27/21 08/28/21 08/28/21 18:59 06:59 18:59 Intake Total 600 Balance 600 Intake: Oral 600 Other: # Voids 2 2 - Exam PHYSICAL EXAM: VITAL SIGNS: Reviewed. GENERAL: Well-developed in no acute distress. HEENT: Head is normocephalic. Pupils are equal, round. Sclerae anicteric. Mucous membranes of the mouth are moist. NECK: Supple. No JVD or thyromegaly RESPIRATORY: Respirations even and unlabored. Lungs diminished to auscultation bilaterally. CARDIO: Regular rate and rhythm. S1 and S2 heard. No murmur or gallops. EXTREMITIES: Normal range of motion. No clubbing or cyanosis. Peripheral pulses intact. Negative for bilateral lower extremity edema NEURO: Orientated to person, time, mood is appropriate - Labs CBC & Chem 7: 08/28/21 08:25 08/28/21 08:25 Labs: Abnormal Lab Results - Last 24 Hours (Table) 08/27/21 08/27/21 08/28/21 Range/Units 14:43 14:43 08:25 RBC 3.51 L 3.75 L (3.80-5.40) m/uL Hgb 11.0 L (11.4-16.0) gm/dL Hct 33.7 L (34.0-46.0) % Chloride 111 H (98-107) mmol/L Carbon Dioxide (22-30) mmol/L Glucose 103 H (74-99) mg/dL Total Protein 5.7 L (6.3-8.2) g/dL Albumin 2.9 L (3.5-5.0) g/dL 08/28/21 Range/Units 08:25 RBC (3.80-5.40) m/uL Hgb (11.4-16.0) gm/dL Hct (34.0-46.0) % Chloride 109 H (98-107) mmol/L Carbon Dioxide 20 L (22-30) mmol/L Glucose 162 H (74-99) mg/dL Total Protein (6.3-8.2) g/dL Albumin (3.5-5.0) g/dL Assessment and Plan Assessment: Acute non-STEMI, status post PCI to the proximal and mid RCA Coronary artery disease Persistent atrial fibrillation Asymptomatic bradycardia Hypertension Plan: Will obtain a 2-D echo and review results in office with patient Continue on dual antiplatelet therapy Patient is on a statin due to she is unable to tolerate it Continue on Eliquis for anticoagulation Hold beta reji due to bradycardia Continue lisinopril 10 mg daily Continue to monitor vital signs, I&Os, cardiac rhythm Continue with telemetry monitoring Patient is able to be discharged home today from a cardiac standpoint Further recommendations based on clinical course The above impression and plan of care have been discussed and directed by the signing physician. Chantale Contreras, nurse practitioner, acting as scribe for signing physician.
[2021-08-28 15:24] VITALS: BP 136/64; PULSE 80; RESP 16
--- NOTE | 2021-08-28 15:59 | P.DS ---
Providers Date of admission: 08/26/21 10:46 Attending physician: Librado Huynh MD Consults: 08/26/21 14:20 Consult Physician Routine Consulting Provider: [facility] Consult Reason/Comments: Post Interventional patient Do you want consulting provider notified?: Already Contacted Primary care physician: Yash Suazo [facility] Course: 71 years old female patient of Dr. Suazo with past medical history of atrial fibrillation with ablation [address] madden at [facility], history of asthma C Dr. Barroso, hypothyroidism hypertension depression with anxiety as well as GERD came into [facility] with dyspnea on exertion. She was T treated at outpatient by her doctor but Keflex is sinus infection. Since patient had no improvement patient came to the hospital. Patient did not come to the hospital until 08/24 to come to the hospital since he was concerned she will have COVID. Patient has not vaccinated. EKG was concerning for guidance normal sinus rhythm with some ST changes in the anterior leads concerning for old infarct patient was noted to have low potassium and low magnesium which was corrected. Chest x-ray showed multiple new infiltrate concerning for atypical pneumonia. COVID was negative troponin was mildly elevated. Patient was initiated on Rocephin and azithromycin. Cardiology was consulted. Patient had cardiac cath with Dr. Silva and was immediately transferred to [facility] for coronary angioplasty with stent placement. Patient is currently chest pain-free status she does have mild cough that kept her awake all night. We will initiate patient on Rocephin and azithromycin with Tessalon Perles and Mucinex for cough. Patient is nothing by mouth for cardiac angioplasty 08/27 patient examined that site. She underwent cardiac angioplasty of proximal and mid RCA. Patient is asymptomatic does complain of cough production with phlegm. She is also complaining of significant left ear pain with drainage. Denies ear fullness or conduction loss. Her vitals are stable blood pressure 124/66 and liver enzymes are normal 08/28 patient examined bedside. Denies cough or congestion. Chest x-ray reviewed does have mild pneumonia on the right. The patient would benefit with doxycycline for 100 mg twice daily for 7 days. Patient's ear drainage has also improved with initiation of ofloxacin drops and Claritin at 10 mg by mouth daily. Dizziness cleared by cardiology for discharge today with plan to follow up as outpatient. Echocardiogram reviewed systems is a systolic function low normal EF 5055% with mild mitral regurg and mild tricuspid regurgitation. Patient follow up with cardiology as Physical exam - Constitutional General appearance: Very pleasant cooperative, no acute distress, appears stated age Neck: no lymphadenopathy, normal ROM, no other, no rigidity, no stridor, no thyromegaly - Respiratory Respiratory: bilateral: CTA, negative: diminished, dullness, rales, rhonchi - Cardiovascular Rhythm: regular Heart sounds: normal: S1, S2 Abnormal Heart Sounds: 2/5 systolic murmur, no diastolic murmur, no rub, no S3 Gallop, no S4 Gallop, no click, no other - Gastrointestinal General gastrointestinal: normal bowel sounds, soft - Integumentary Integumentary: no rash or site of entry without any gross or swelling Assessment and plan #1 gram-negative pneumonia #2 acute otitis media #3 acute NSTEMI post-PCI proximal and mid RCA #4 paroxysmal atrial fibrillation #5 asthma #6 GERD #7 hypothyroidism #8 depression disposition home with self-care Plan - Discharge Summary Discharge Rx Participant: Yes New Discharge Prescriptions: New Aspirin 81 mg PO DAILY tab Loratadine [Claritin] 10 mg PO DAILY tab guaiFENesin [Mucinex] 1,200 mg PO Q12HR tablet Clopidogrel [Plavix] 75 mg PO DAILY #30 tab Benzonatate [Tessalon Perles] 100 mg PO TID #30 cap lisinopriL [Zestril] 10 mg PO DAILY #30 tab Fluticasone Nasal Gordo [Flonase Nasal Gordo] 2 spray EA NOSTRIL DAILY PRN gm PRN Reason: Allergy Symptoms Ofloxacin 0.3% Ophth Soln [Ocuflox Ophth Soln] 5 drops LEFT EAR DAILY #5 ml Doxycycline [Vibramycin] 100 mg PO BID 7 Days #14 capsule Continue Aspirin 81 mg PO MOORE Ergocalciferol [Vitamin D2 (1250 Mcg = 47006 Iu)] 1,250 mcg PO TH Apixaban [Eliquis] 5 mg PO BID Furosemide [Lasix] 20 mg PO DAILY Sucralfate [Carafate] 1 gm PO TID Pantoprazole [Protonix] 40 mg PO BID Sertraline HCl [Zoloft] 50 mg PO DAILY Magnesium 500 mg PO TH Levothyroxine Sodium 25 mcg PO DAILY Furosemide [Lasix] 20 mg PO DAILY Atenolol/Chlorthalidone [Atenolol/Chlorthalidone 50-25] 1 tab PO DAILY Potassium Unknown Dose 1 tab PO DAILY Levothyroxine Sodium [Synthroid] 25 mcg PO DAILY Discharge Medication List Apixaban [Eliquis] 5 mg PO BID 08/26/21 [History] Aspirin 81 mg PO MOORE 08/26/21 [History] Atenolol/Chlorthalidone [Atenolol/Chlorthalidone 50-25] 1 tab PO DAILY 08/26/21 [History] Ergocalciferol [Vitamin D2 (1250 Mcg = 35753 Iu)] 1,250 mcg PO TH 08/26/21 [History] Furosemide [Lasix] 20 mg PO DAILY 08/26/21 [History] Levothyroxine Sodium 25 mcg PO DAILY 08/26/21 [History] Magnesium 500 mg PO TH 08/26/21 [History] Pantoprazole [Protonix] 40 mg PO BID 08/26/21 [History] Potassium Unknown Dose 1 tab PO DAILY 08/26/21 [History] Sertraline HCl [Zoloft] 50 mg PO DAILY 08/26/21 [History] Sucralfate [Carafate] 1 gm PO TID 08/26/21 [History] Furosemide [Lasix] 20 mg PO DAILY 08/27/21 [History] Levothyroxine Sodium [Synthroid] 25 mcg PO DAILY 08/27/21 [History] Aspirin 81 mg PO DAILY tab 08/28/21 [Rx] Benzonatate [Tessalon Perles] 100 mg PO TID #30 cap 08/28/21 [Rx] Clopidogrel [Plavix] 75 mg PO DAILY #30 tab 08/28/21 [Rx] Doxycycline [Vibramycin] 100 mg PO BID 7 Days #14 capsule 08/28/21 [Rx] Fluticasone Nasal Gordo [Flonase Nasal G[place]] 2 spray EA NOSTRIL DAILY PRN gm 08/28/21 [Rx] Loratadine [Claritin] 10 mg PO DAILY tab 08/28/21 [Rx] Ofloxacin 0.3% Ophth Soln [Ocuflox Ophth Soln] 5 drops LEFT EAR DAILY #5 ml 08/28/21 [Rx] guaiFENesin [Mucinex] 1,200 mg PO Q12HR tablet 08/28/21 [Rx] lisinopriL [Zestril] 10 mg PO DAILY #30 tab 08/28/21 [Rx] Follow up Appointment(s)/Referral(s): Yash Suazo DO [Primary Care Provider] - 1 Week (Please make appointment when office is open) James Rodriguez MD [STAFF PHYSICIAN] - 1 Week (Please make appointment when office is open) Patient Instructions/Handouts: Heart Catheterization (GEN) Discharge Disposition: HOME SELF-CARE
== END 2021-08-28 16:00 | disposition home or self-care (01) | DRG 246 ==
LOC: 3SCARD 10:46
PROVIDERS: ADMIT Internal Medicine; ATTEND Internal Medicine
PROC: 027034Z Dilation of Coronary Artery, One Artery with Drug-eluting Intraluminal Device, Percutaneous Approach (ICD-10-PCS; principal; 2021-08-26 11:30)
DX: I21.4 Non-ST elevation (NSTEMI) myocardial infarction (principal); J15.6 Pneumonia due to other Gram-negative bacteria; I48.19 Other persistent atrial fibrillation; Z20.822 Contact with and (suspected) exposure to COVID-19; I48.0 Paroxysmal atrial fibrillation; R00.1 Bradycardia, unspecified; I10 Essential (primary) hypertension; I25.10 Atherosclerotic heart disease of native coronary artery without angina pectoris; J45.909 Unspecified asthma, uncomplicated; K21.9 Gastro-esophageal reflux disease without esophagitis; F32.A Depression, unspecified; E03.9 Hypothyroidism, unspecified; Z79.890 Hormone replacement therapy; H66.90 Otitis media, unspecified, unspecified ear; I08.1 Rheumatic disorders of both mitral and tricuspid valves; Z79.01 Long term (current) use of anticoagulants; Z79.82 Long term (current) use of aspirin; Z79.899 Other long term (current) drug therapy; Z80.0 Family history of malignant neoplasm of digestive organs; Z82.5 Family history of asthma and other chronic lower respiratory diseases; Z91.011 Allergy to milk products; Z88.1 Allergy status to other antibiotic agents; Z88.8 Allergy status to other drugs, medicaments and biological substances; Z90.49 Acquired absence of other specified parts of digestive tract; Z87.19 Personal history of other diseases of the digestive system; Z98.51 Tubal ligation status
CPT/HCPCS: 71046; 80048; 80053; 84145; 85025; 93306

== ENCOUNTER → 2021-09-05 | Outpatient (CLI) | payer MEDICARE ==
--- NOTE | 2021-09-06 08:48 | XR ---
EXAMINATION TYPE: XR chest 2V DATE OF EXAM: 09/05/2021 COMPARISON: Chest x-ray 08/27/2021 HISTORY: Pneumonia TECHNIQUE: Frontal and lateral views of the chest are obtained. FINDINGS: There is improvement in aeration as compared to prior exam. No evident pneumothorax or ple ural effusion. Prominent lung volume may be indicative of underlying COPD. Thoracic spondylosis is ag ain seen. Cardiac mediastinal silhouette is stable. IMPRESSION: Resolution of patient's pneumonia
== END | disposition home or self-care (01) ==
LOC: RADXRMAIN 16:52
PROVIDERS: ATTEND Family Medicine
DX: J18.9 Pneumonia, unspecified organism (principal)
CPT/HCPCS: 71046

== ENCOUNTER 2021-11-10 02:49 | Inpatient (IN) | payer MEDICARE ==
[2021-11-10 03:30] LABS: Basophils % (A) 0 %; Eosinophils # (A) 0.1 k/uL (0-0.7); Eosinophils % (A) 1 %; HCT 42.6 % (34.0-46.0); Lymphocytes # (A) 1.9 k/uL (1.0-4.8); Lymphocytes % (A) 15 %; MCH 30.9 pg (25.0-35.0); MCHC 32.8 g/dL (31.0-37.0); MCV 94.2 fL (80.0-100.0); Monocytes # (A) 0.7 k/uL (0-1.0); Monocytes % (A) 6 %; Neutrophils # (A) 9.4 k/uL (1.3-7.7); Neutrophils % (A) 76 %; Platelet Count 335 k/uL (150-450); RBC 4.52 m/uL (3.80-5.40); RDW 13.8 % (11.5-15.5); WBC 12.3 k/uL (3.8-10.6)
[2021-11-10 03:40] LABS: Albumin 3.8 g/dL (3.5-5.0); Calcium 9.2 mg/dL (8.4-10.2); Magnesium 1.2 mg/dL (1.6-2.3); Potassium 4.1 mmol/L (3.5-5.1); Total Bilirubin 0.4 mg/dL (0.2-1.3); Total Protein 6.7 g/dL (6.3-8.2)
--- NOTE | 2021-11-10 04:22 | XR ---
EXAMINATION TYPE: XR chest 2V DATE OF EXAM: 11/10/2021 COMPARISON: 09/05/2021 HISTORY: Dysrhythmia TECHNIQUE: FINDINGS: There is no heart failure nor confluent pneumonic infiltrate. Costophrenic angles are clear . There is some spurring in the thoracic spine. Heart is normal. IMPRESSION: No active cardiopulmonary disease. No change.
[2021-11-10 04:32] LABS: INR 0.9 (<1.2); Partial Thromboplastin Time 24.3 sec (22.0-30.0); Prothrombin Time 10.1 sec (9.0-12.0)
[2021-11-10] MEDS ORDERED: SODIUM CHLORIDE 0.9% 500 ML 500 ML IV ONE (06:26)
--- NOTE | 2021-11-10 06:32 | ED ---
General Adult HPI - General Chief complaint: Arrhythmia/Palpitations Stated complaint: Palpitations Time Seen by Provider: 11/10/21 06:20 Source: patient, family, RN notes reviewed, old records reviewed Mode of arrival: ambulatory Limitations: no limitations - History of Present Illness Initial comments: 70-year-old male presents to the emergency room with 1 day of chest and back pain. Patient states that she had felt shaky and noticed her heart rate was elevated today. She states that she underwent an ablation with Dr. Silva with stent placement 3 weeks ago. She states the pain is under her left breast 8 out of 10 and wraps around into her back, worse with palpation. She denies any nausea vomiting or diarrhea. -: days(s) (1) Location: chest, back Severity scale (1-10): 8 Quality: constant Associated Symptoms: nausea/vomiting, shortness of breath Treatments Prior to Arrival: none - Related Data Home Medications Medication Instructions Recorded Confirmed Apixaban [Eliquis] 5 mg PO BID 08/26/21 11/10/21 Aspirin 81 mg PO DAILY 08/26/21 11/10/21 Ergocalciferol [Vitamin D2 (1250 1,250 mcg PO TH 08/26/21 11/10/21 Mcg = 85221 Iu)] Furosemide [Lasix] 20 mg PO DAILY 08/26/21 11/10/21 Levothyroxine Sodium 25 mcg PO DAILY 08/26/21 11/10/21 Pantoprazole [Protonix] 40 mg PO DAILY 08/26/21 11/10/21 Sertraline HCl [Zoloft] 50 mg PO DAILY 08/26/21 11/10/21 Sucralfate [Carafate] 1 gm PO TID 08/26/21 11/10/21 Evolocumab [Repatha Sureclick] 140 mg SQ Q14D 11/10/21 11/10/21 Losartan Potassium [Cozaar] 25 mg PO DAILY 11/10/21 11/10/21 Magnesium Gluconate [Magonate] 500 mg PO BID 11/10/21 11/10/21 Potassium Gluconate [Potassium 99 mg PO DAILY 11/10/21 11/10/21 Gluconate ER] Previous Rx's Medication Instructions Recorded Clopidogrel [Plavix] 75 mg PO DAILY #30 tab 08/28/21 Allergies Allergy/AdvReac Type Severity Reaction Status Date / Time amoxicillin [From Augmentin] Allergy Nausea Verified 11/10/21 07:06 clarithromycin [From Biaxin] Allergy Nausea & Verified 11/10/21 07:06 Vomiting clavulanic acid Allergy Nausea Verified 11/10/21 07:06 [From Augmentin] levofloxacin [From Levaquin] Allergy Nausea Verified 11/10/21 07:06 milk Allergy Nausea & Verified 11/10/21 07:06 Vomiting nitrofurantoin Allergy Nausea & Verified 11/10/21 07:06 [From Macrobid] Vomiting sulfamethoxazole Allergy Nausea Verified 11/10/21 07:06 [From Bactrim] trimethoprim [From Bactrim] Allergy Nausea Verified 11/10/21 07:06 [id number] Reductase AdvReac Unknown Verified 11/10/21 07:06 Inhibitor Review of Systems ROS Statement: Those systems with pertinent positive or pertinent negative responses have been documented in the HPI. ROS Other: All systems not noted in ROS Statement are negative. Past Medical History Past Medical History: Atrial Fibrillation, Hypertension Additional Past Medical History / Comment(s): Diverticulitits History of Any Multi-Drug Resistant Organisms: None Reported Past Surgical History: Appendectomy, Cardiac Ablation, Cholecystectomy, Heart Catheterization With Stent, Tubal Ligation Additional Past Surgical History / Comment(s): colon surgery, heart ablation, hernia mesh Past Anesthesia/Blood Transfusion Reactions: No Reported Reaction Additional Past Anesthesia/Blood Transfusion Reaction / Comment(s): hard to wake up from anesthesia Past Psychological History: No Psychological Hx Reported Smoking Status: Never smoker Past Alcohol Use History: None Reported Past Drug Use History: None Reported - Past Family History Mother Family Medical History: AFIB, COPD, Hypertension Father Family Medical History: Cancer General Exam Limitations: no limitations General appearance: alert, in no apparent distress Head exam: Present: atraumatic Eye exam: Present: normal appearance. Absent: scleral icterus, conjunctival injection ENT exam: Present: normal exam, normal oropharynx, mucous membranes moist Neck exam: Present: normal inspection, full ROM. Absent: meningismus Respiratory exam: Present: normal lung sounds bilaterally. Absent: respiratory distress, wheezes, rales, rhonchi, stridor, chest wall tenderness, accessory muscle use, decreased breath sounds Cardiovascular Exam: Present: tachycardia, normal heart sounds. Absent: JVD GI/Abdominal exam: Present: soft, normal bowel sounds. Absent: distended, tenderness Extremities exam: Present: normal inspection, normal capillary refill. Absent: pedal edema Back exam: Present: normal inspection. Absent: tenderness, CVA tenderness (R), CVA tenderness (L), rash noted Neurological exam: Present: alert, oriented X3 Psychiatric exam: Present: normal affect, normal mood Skin exam: Present: warm, dry, intact, normal color. Absent: cyanosis, diaphoretic, petechiae, pallor Course Vital Signs 11/10/21 11/10/21 11/10/21 02:50 05:38 07:41 Temperature 98.8 F 97.8 F Pulse Rate 129 H 125 H 122 H Respiratory 22 18 20 Rate Blood Pressure 193/100 157/99 134/97 O2 Sat by Pulse 97 98 99 Oximetry 11/10/21 11/10/21 11/10/21 09:44 11:44 13:50 Temperature Pulse Rate 120 H 122 H 128 H Respiratory 18 18 18 Rate Blood Pressure 134/91 127/84 127/92 O2 Sat by Pulse 96 96 96 Oximetry - Reevaluation(s) Reevaluation #1: 11/10/21 08:29 Patient states relief of the pain with the morphine. Continues to be tachycardic at 120. The covid/influenza swab pending Time: 08:29 EKG Findings - EKG Results: EKG shows: tachycardia (Ventricular rate of 126, CA interval 0.15, QRS 0.109, QTC 0.361) Medical Decision Making - Medical Decision Making 70-year-old male presents to the emergency room with 1 day of chest and back pain with rapid heartrate. She does have history of atrial fibrillation who states ablation with Dr. Silva. She did have PCI with stent placement on August 26 of this year. Chest x-ray shows no acute cardiopulmonary disease or evidence of infiltrate. Slight elevation in white blood cell count with left shift. Magnesium is low at 1.2 patient was given Mag-Ox. Troponin is 0.024 EKG shows sinus tachycardia with a rate of [address] [place] [address]43. [address] chest performed for tachycardia and chest pain radiating into the back and shows no evidence of PE. There is some COPD with mild emphysema. Pulmonary artery hypertension artery disease present. There is a 7 mm pulmonary nodule the left apex noted. D-dimer is negative at 0.20. Repeat Troponin negative 0.023. TSH is elevated at 5.380. Covid and influenza swabs were completed and negative. Patient states that her pain was relieved after nitro and morphine. She is on Plavix. She was given 4 baby aspirin in the emergency room. Patient will be admitted for atypical chest pain and tachycardia. Case discussed with Dr. Motta. - Lab Data Result diagrams: 11/10/21 03:15 11/10/21 03:15 Lab Results 11/10/21 11/10/21 11/10/21 Range/Units 03:15 03:15 03:15 WBC 12.3 H (3.8-10.6) k/uL RBC 4.52 (3.80-5.40) m/uL Hgb 14.0 (11.4-16.0) gm/dL Hct 42.6 (34.0-46.0) % MCV 94.2 (80.0-100.0) fL MCH 30.9 (25.0-35.0) pg MCHC 32.8 (31.0-37.0) g/dL RDW 13.8 (11.5-15.5) % Plt Count 335 (150-450) k/uL MPV 8.0 Neutrophils % 76 % Lymphocytes % 15 % Monocytes % 6 % Eosinophils % 1 % Basophils % 0 % Neutrophils # 9.4 H (1.3-7.7) k/uL Lymphocytes # 1.9 (1.0-4.8) k/uL Monocytes # 0.7 (0-1.0) k/uL Eosinophils # 0.1 (0-0.7) k/uL Basophils # 0.0 (0-0.2) k/uL PT 10.1 (9.0-12.0) sec INR 0.9 (<1.2) APTT 24.3 (22.0-30.0) sec D-Dimer 0.20 (<0.60) mg/L FEU Sodium 137 (137-145) mmol/L Potassium 4.1 (3.5-5.1) mmol/L Chloride 105 (98-107) mmol/L Carbon Dioxide 22 (22-30) mmol/L Anion Gap 10 mmol/L BUN 26 H (7-17) mg/dL Creatinine 0.84 (0.52-1.04) mg/dL Est GFR (CKD-EPI)AfAm 80 (>60 ml/min/1.73 sqM) Est GFR (CKD-EPI)NonAf 69 (>60 ml/min/1.73 sqM) Glucose 127 H (74-99) mg/dL Calcium 9.2 (8.4-10.2) mg/dL Magnesium 1.2 L (1.6-2.3) mg/dL Total Bilirubin 0.4 (0.2-1.3) mg/dL AST 20 (14-36) U/L ALT 18 (4-34) U/L Alkaline Phosphatase 85 (38-126) U/L Troponin I (0.000-0.034) ng/mL Total Protein 6.7 (6.3-8.2) g/dL Albumin 3.8 (3.5-5.0) g/dL TSH (0.465-4.680) mIU/L Free T4 (0.78-2.19) ng/dL Influenza Type A (PCR) (Not Detectd) Influenza Type B (PCR) (Not Detectd) RSV (PCR) (Not Detectd) SARS-CoV-2 (PCR) (Not Detectd) 11/10/21 11/10/21 11/10/21 Range/Units 03:15 03:15 07:43 WBC (3.8-10.6) k/uL RBC (3.80-5.40) m/uL Hgb (11.4-16.0) gm/dL Hct (34.0-46.0) % MCV (80.0-100.0) fL MCH (25.0-35.0) pg MCHC (31.0-37.0) g/dL RDW (11.5-15.5) % Plt Count (150-450) k/uL MPV Neutrophils % % Lymphocytes % % Monocytes % % Eosinophils % % Basophils % % Neutrophils # (1.3-7.7) k/uL Lymphocytes # (1.0-4.8) k/uL Monocytes # (0-1.0) k/uL Eosinophils # (0-0.7) k/uL Basophils # (0-0.2) k/uL PT (9.0-12.0) sec INR (<1.2) APTT (22.0-30.0) sec D-Dimer (<0.60) mg/L FEU Sodium (137-145) mmol/L Potassium (3.5-5.1) mmol/L Chloride (98-107) mmol/L Carbon Dioxide (22-30) mmol/L Anion Gap mmol/L BUN (7-17) mg/dL Creatinine (0.52-1.04) mg/dL Est GFR (CKD-EPI)AfAm (>60 ml/min/1.73 sqM) Est GFR (CKD-EPI)NonAf (>60 ml/min/1.73 sqM) Glucose (74-99) mg/dL Calcium (8.4-10.2) mg/dL Magnesium (1.6-2.3) mg/dL Total Bilirubin (0.2-1.3) mg/dL AST (14-36) U/L ALT (4-34) U/L Alkaline Phosphatase (38-126) U/L Troponin I 0.024 0.023 (0.000-0.034) ng/mL Total Protein (6.3-8.2) g/dL Albumin (3.5-5.0) g/dL TSH 5.380 H (0.465-4.680) mIU/L Free T4 0.98 (0.78-2.19) ng/dL Influenza Type A (PCR) (Not Detectd) Influenza Type B (PCR) (Not Detectd) RSV (PCR) (Not Detectd) SARS-CoV-2 (PCR) (Not Detectd) 11/10/21 Range/Units 08:07 WBC (3.8-10.6) k/uL RBC (3.80-5.40) m/uL Hgb (11.4-16.0) gm/dL Hct (34.0-46.0) % MCV (80.0-100.0) fL MCH (25.0-35.0) pg MCHC (31.0-37.0) g/dL RDW (11.5-15.5) % Plt Count (150-450) k/uL MPV Neutrophils % % Lymphocytes % % Monocytes % % Eosinophils % % Basophils % % Neutrophils # (1.3-7.7) k/uL Lymphocytes # (1.0-4.8) k/uL Monocytes # (0-1.0) k/uL Eosinophils # (0-0.7) k/uL Basophils # (0-0.2) k/uL PT (9.0-12.0) sec INR (<1.2) APTT (22.0-30.0) sec D-Dimer (<0.60) mg/L FEU Sodium (137-145) mmol/L Potassium (3.5-5.1) mmol/L Chloride (98-107) mmol/L Carbon Dioxide (22-30) mmol/L Anion Gap mmol/L BUN (7-17) mg/dL Creatinine (0.52-1.04) mg/dL Est GFR (CKD-EPI)AfAm (>60 ml/min/1.73 sqM) Est GFR (CKD-EPI)NonAf (>60 ml/min/1.73 sqM) Glucose (74-99) mg/dL Calcium (8.4-10.2) mg/dL Magnesium (1.6-2.3) mg/dL Total Bilirubin (0.2-1.3) mg/dL AST (14-36) U/L ALT (4-34) U/L Alkaline Phosphatase (38-126) U/L Troponin I (0.000-0.034) ng/mL Total Protein (6.3-8.2) g/dL Albumin (3.5-5.0) g/dL TSH (0.465-4.680) mIU/L Free T4 (0.78-2.19) ng/dL Influenza Type A (PCR) Not Detected (Not Detectd) Influenza Type B (PCR) Not Detected (Not Detectd) RSV (PCR) Not Detected (Not Detectd) SARS-CoV-2 (PCR) Not Detected (Not Detectd) Disposition Clinical Impression: Tachycardia, Atypical chest pain Disposition: ADMITTED IP TO THIS HOSP Decision Date: 11/10/21 Decision Time: 08:38
[2021-11-10] MEDS ORDERED: ASPIRIN 81 MG PO STA (06:33)
[2021-11-10] MEDS ORDERED: MAGNESIUM OXIDE 400 MG TAB PO STA (06:33)
[2021-11-10] MEDS ORDERED: NITROGLYCERIN SL TABS 0.4 MG TAB SUBLINGUAL PRN (07:19)
[2021-11-10] MEDS ORDERED: MORPHINE SULFATE 2 MG/ML SYRINGE IVP ONE (07:26)
--- NOTE | 2021-11-10 08:29 | CT ---
EXAMINATION TYPE: CT angio chest DATE OF EXAM: 11/10/2021 COMPARISON: Radiograph 11/10/2021 HISTORY: 71-year-old female chest pain. elevated HR. TECHNIQUE: Contiguous axial scanning of the chest performed with IV Contrast, patient injected with 1 00ml mL of Isovue 370. Coronal/sagittal MIP reconstructions performed. CT DLP: 405.9 mGycm Automated exposure control for dose reduction was used. FINDINGS: Heart normal size with small anterior basilar pericardial fluid. There is some left atrial dilatation noted. Scattered three-vessel coronary artery calcifications are present. Aorta normal caliber with minimal scattered calcifications in conventional arch vessel branching joão izzy. Large caliber to the main right and the pulmonary arteries measuring up to 2.7 cm with satisfactory o pacification the pulmonary arterial system. There is no evidence for pulmonary embolus. No thoracic lymphadenopathy by CT size criteria. There is an indeterminate 7 mm pulmonary nodule lateral left apex. There may be some eccentric calcif ication within. Follow-up will be needed. A couple tiny calcified granulomas on the left. There is mild centrilobular emphysema and strandy ate lectasis in the lower lungs. No consolidation or pleural effusion. Tiny hiatal hernia. There may be underlying fatty infiltration of liver. Bones: [facility] mid and lower thoracic spine with mild to moderate degenerative disc disease and accentua hugo mid thoracic kyphosis. IMPRESSION: 1. NO EVIDENCE FOR PULMONARY EMBOLUS. 2. COPD WITH MILD EMPHYSEMA. 3. LEFT ATRIAL DILATATION, PULMONARY ARTERIAL HYPERTENSION, CAD. CORRELATE FOR ELEVATED LEFT HEART MT ESSURES. 4. A 7 MM PULMONARY NODULE AT THE LEFT APEX. SOME PUNCTATE ECCENTRIC CALCIFICATION IS PRESENT WITHIN. 3 - 6 MONTH FOLLOW-UP CT CHEST TO REASSESS.
[2021-11-10] MEDS ORDERED: NALOXONE 0.4 MG/ML 1 ML VIAL IV PRN (09:03)
[2021-11-10] MEDS ORDERED: ACETAMINOPHEN TAB 325 MG TAB PO PRN (09:03)
[2021-11-10 11:34] LABS: T4, Free (Free Thyroxine) 0.98 ng/dL (0.78-2.19)
--- NOTE | 2021-11-10 12:19 | P.HPIM ---
History of Present Illness H&P Date: 11/10/21 HISTORY OF PRESENT ILLNESS This is a 71-year-old female patient of Dr. Suazo with past history of paroxysmal atrial fibrillation on long-term anticoagulation with eliquis with ablation done 2 years ago, history of asthma under the care of Dr. Barroso, hypothyroidism, hypertension, recurrent depression and generalized anxiety disorder, gastroesophageal reflux disease. Patient was last hospitalized in August of this she had which time she presented to [facility] and due to concerns with EKG and mild elevation in troponins, patient was transferred to [facility] under the care of Dr. Silva underwent a cardiac catheterization with angioplasty and stent placement to the RCA. Patient states that for the past few days she's had episodes where she feels shaky and at one point thought her blood sugar was low at 8 some chicken but this did not seem to help. She states that she has had lightheaded episodes as well as shortness of breath. She states last night showing slept an hour and a half and her blood pressure was 174/105. She states she drinks some water and ate some radishes but at 2 AM that she needed to come in the hospital. She states she's had a type of pressure that was bouncing off her chest on the left side went to her back and radiating up to her neck. She denies any nausea. Patient also states that she has lost 33 pounds over the past 3 months. Patient presented to [facility] emergency center. She was found to be in atrial flutter with RVR running in the 120s. REVIEW OF SYSTEMS Constitutional: No fever, no chills, no night sweats. No weight change. No weakness, fatigue or lethargy. No daytime sleepiness. EENT: No headache. No blurred vision or double vision, no loss of vision. No loss of Hearing, no ringing in the ears, no dizziness. No nasal drainage or congestion. No epistaxis. No sore throat. Lungs: Reports shortness of breath, no cough, no sputum production. No wheezing. Cardiovascular: Reports chest pain, no lower extremity edema. Reports palpitations. No paroxysmal nocturnal dyspnea. No orthopnea. No lightheadedness or dizziness. No syncopal episodes. Abdominal: No abdominal pain. No nausea, vomiting. No diarrhea. No constipation. No bloody or tarry stools. No loss of appetite. Genitourinary: No dysuria, increased frequency, urgency. No urinary retention. Musculoskeletal: No myalgias. No muscle weakness, no gait dysfunction, no frequent falls. No back pain. No neck pain. Integumentary: No wounds, no lesions. No rash or pruritus. No unusual bruising. No change in hair or nails. Neurologic: No aphasia. No facial droop. No change in mentation. No head injury. No headache. No paralysis. No paresthesia. Psychiatric: No depression. No anxiety. No mood swings. Endocrine: No abnormal blood sugars. No weight change. No excessive sweating or thirst. No cold intolerance. SOCIAL HISTORY Patient is a nonsmoker and does not drink alcohol patient does not have home oxygen and nebulizer, no CPAP. FAMILY HISTORY Mother at age 89 from atrial fibrillation and COPD. Father at age 74 from stomach cancer. Patient has 4 brothers and 2 sisters and 4 children with no major medical problems. PHYSICAL EXAMINATION Gen: This is a 71-year-old female. She is resting on the ER stretcher and appears to be somewhat uncomfortable. She is feeling palpitations. HEENT: Head is atraumatic, normocephalic. Pupils equal, round. Sclerae is anicteric. NECK: Supple. No JVD. No lymphadenopathy. No thyromegaly. LUNGS: Clear to auscultation. No wheezes or rhonchi. No intercostal retractions. HEART: Regular rate and rhythm. 2/6 systolic murmur. Tachycardic. ABDOMEN: Soft. Bowel sounds are present. No masses. No tenderness. EXTREMITIES: No pedal edema. No calf tenderness. NEUROLOGICAL: Patient is awake, alert and oriented x3. Cranial nerves 2 through 12 are grossly intact. ASSESSMENT AND PLAN 1. Chest pressure, acute coronary syndrome ruled out. Cardiology consult appreciated. 2. Typical atrial flutter with RVR. Patient's been started on Cardizem drip at 10 mg per hour, started on metoprolol tartrate 50 g twice daily, continue eliquis 5 mg twice daily. Patient may undergo cardioversion tomorrow if she does not convert to sinus rhythm. 3. Paroxysmal atrial fibrillation on long-term anticoagulation with eliquis and status post ablation in the past. 4. History of non-ST elevated myocardial infarction status post PCI of the proximal and mid RCA in August 2021. 5. Hypothyroidism. Continue levothyroxine 25 g daily 6. Hypertension. Continue Lasix 20 mg daily, losartan 25 mg daily, Lopressor 50 mg twice daily. 7. Moderate intermittent asthma, stable. 8. Gastroesophageal reflux disease. Continue Protonix 40 mg daily, Carafate 1 g 3 times daily. 9. Recurrent depression and generalized anxiety disorder. Continue Zoloft 50 mg daily 10. Hyperlipidemia. Patient is on Repatha 140 mg subcu every 14 days. 11. DVT prophylaxis. Eliquis. Patient will be admitted to the hospital for a minimum of 2 night stay. DISCHARGE PLAN Home. Impression and plan of care have been directed as dictated by the signing physician. Jocelyn Arellano nurse practitioner acting as scribe for signing physician. Past Medical History Past Medical History: Atrial Fibrillation, Hypertension Additional Past Medical History / Comment(s): Diverticulitits History of Any Multi-Drug Resistant Organisms: None Reported Past Surgical History: Appendectomy, Cardiac Ablation, Cholecystectomy, Heart Catheterization With Stent, Tubal Ligation Additional Past Surgical History / Comment(s): colon surgery, heart ablation, hernia mesh Past Anesthesia/Blood Transfusion Reactions: No Reported Reaction Additional Past Anesthesia/Blood Transfusion Reaction / Comment(s): hard to wake up from anesthesia Past Psychological History: No Psychological Hx Reported Smoking Status: Never smoker Past Alcohol Use History: None Reported Past Drug Use History: None Reported - Past Family History Mother Family Medical History: AFIB, COPD, Hypertension Father Family Medical History: Cancer Medications and Allergies Home Medications Medication Instructions Recorded Confirmed Type Apixaban [Eliquis] 5 mg PO BID 08/26/21 11/10/21 History Aspirin 81 mg PO DAILY 08/26/21 11/10/21 History Ergocalciferol [Vitamin D2 (1250 1,250 mcg PO TH 08/26/21 11/10/21 History Mcg = 29578 Iu)] Furosemide [Lasix] 20 mg PO DAILY 08/26/21 11/10/21 History Levothyroxine Sodium 25 mcg PO DAILY 08/26/21 11/10/21 History Pantoprazole [Protonix] 40 mg PO DAILY 08/26/21 11/10/21 History Sertraline HCl [Zoloft] 50 mg PO DAILY 08/26/21 11/10/21 History Sucralfate [Carafate] 1 gm PO TID 08/26/21 11/10/21 History Clopidogrel [Plavix] 75 mg PO DAILY #30 tab 08/28/21 11/10/21 Rx Evolocumab [Repatha Sureclick] 140 mg SQ Q14D 11/10/21 11/10/21 History Losartan Potassium [Cozaar] 25 mg PO DAILY 11/10/21 11/10/21 History Magnesium Gluconate [Magonate] 500 mg PO BID 11/10/21 11/10/21 History Potassium Gluconate [Potassium 99 mg PO DAILY 11/10/21 11/10/21 History Gluconate ER] Allergies Allergy/AdvReac Type Severity Reaction Status Date / Time amoxicillin [From Augmentin] Allergy Nausea Verified 11/10/21 07:06 clarithromycin [From Biaxin] Allergy Nausea & Verified 11/10/21 07:06 Vomiting clavulanic acid Allergy Nausea Verified 11/10/21 07:06 [From Augmentin] levofloxacin [From Levaquin] Allergy Nausea Verified 11/10/21 07:06 milk Allergy Nausea & Verified 11/10/21 07:06 Vomiting nitrofurantoin Allergy Nausea & Verified 11/10/21 07:06 [From Macrobid] Vomiting sulfamethoxazole Allergy Nausea Verified 11/10/21 07:06 [From Bactrim] trimethoprim [From Bactrim] Allergy Nausea Verified 11/10/21 07:06 [id number] Reductase AdvReac Unknown Verified 11/10/21 07:06 Inhibitor Physical Exam Vitals: Vital Signs Temp Pulse Resp BP Pulse Ox 11/10/21 11:44 122 H 18 127/84 96 11/10/21 09:44 120 H 18 134/91 96 11/10/21 07:41 122 H 20 134/97 99 11/10/21 05:38 97.8 F 125 H 18 157/99 98 11/10/21 02:50 98.8 F 129 H 22 193/100 97 Intake and Output 11/09/21 11/10/21 11/10/21 22:59 06:59 14:59 Other: Weight 106.594 kg Results CBC & Chem 7: 11/10/21 03:15 11/10/21 03:15 Labs: Abnormal Lab Results - Last 24 Hours (Table) 0411/10/21 11/10/21 Range/Units 03:15 03:15 03:15 WBC 12.3 H (3.8-10.6) k/uL Neutrophils # 9.4 H (1.3-7.7) k/uL BUN 26 H (7-17) mg/dL Glucose 127 H (74-99) mg/dL Magnesium 1.2 L (1.6-2.3) mg/dL TSH 5.380 H (0.465-4.680) mIU/L
[2021-11-10] MEDS ORDERED: DILTIAZEM DRIP BOLUS FROM BAG 1 MG SOLN IV ONE (12:50)
[2021-11-10] MEDS: CLOPIDOGREL 75 MG TAB PO SCH ×2 (13:42→13:50)
--- NOTE | 2021-11-10 13:46 | ECHOF ---
Referral Reason:tachycardia, chest pain MEASUREMENTS -------- HEIGHT: 165.1 cm WEIGHT: 106.6 kg BP: RVIDd: 2.7 cm (< 3.3) IVSd: 1.3 cm (0.6 - 1.1) LVIDd: 4.4 cm (3.9 - 5.3) LVPWd: 1.9 cm (0.6 - 1.1) IVSs: 1.2 cm LVIDs: 4.3 cm LVPWs: 1.8 cm LAESV Index (A-L): 33.67 ml/m Ao Diam: 2.8 cm (2.0 - 3.7) AV Cusp: 1.5 cm (1.5 - 2.6) LA Diam: 4.2 cm (2.7 - 3.8) MV EXCURSION: 18.395 mm (> 18.000) MV EF SLOPE: 92 mm/s (70 - 150) EPSS: 1.1 cm RAP: 5.00 mmHg RVSP: 19.04 mmHg FINDINGS -------- Resting tachycardia (HR>100bpm). The rhythm appears to be atrial flutter. This was a technically adequate study. The left ventricular size is normal. There is mild concentric left ventricular hypertrophy. Overa ll left ventricular systolic function is mild-moderately impaired with, an EF between 40 - 45 %. The right ventricle is normal in size. LA is midly dilated 29-33ml/m2. The right atrial size is normal. There is mild aortic valve sclerosis. There is no evidence of aortic regurgitation. The mitral valve is normal. Mild mitral regurgitation is present. The tricuspid valve appears structurally normal. Mild tricuspid regurgitation present. Right vent ricular systolic pressure is normal at < 35 mmHg. The pulmonic valve was not well visualized. The aortic root size is normal. Echo free space represents a pericardial fat pad. CONCLUSIONS -------- 1. The rhythm appears to be atrial flutter. 2. There is mild concentric left ventricular hypertrophy. 3. Overall left ventricular systolic function is mild-moderately impaired with, an EF between 40 - 45 %. 4. LA is midly dilated 29-33ml/m2. 5. There is mild aortic valve sclerosis. 6. Mild mitral regurgitation is present. 7. Mild tricuspid regurgitation present. 8. Echo free space represents a pericardial fat pad. CORPORATE LAW ASSISTANT: Lexy Guevara RDCS
[2021-11-10] MEDS: LOSARTAN 25 MG TAB PO SCH (13:48)
[2021-11-10] MEDS: SUCRALFATE 1 GM TAB PO SCH ×2 (13:49→19:50)
[2021-11-10] MEDS: PANTOPRAZOLE 40 MG TABLET PO SCH (13:49)
[2021-11-10] MEDS: METOPROLOL TARTRATE 50 MG TAB PO SCH ×2 (13:49→19:50)
[2021-11-10] MEDS: MAGNESIUM OXIDE 400 MG TAB PO SCH ×2 (13:50→19:50)
[2021-11-10] MEDS: SERTRALINE 50 MG TAB PO SCH (13:50)
[2021-11-10] MEDS: DILTIAZEM 125 MG in SODIUM CHLORIDE 0.9% 100 ML IV SCH ×3 (13:53→17:16)
--- NOTE | 2021-11-10 13:54 | P.CRDCN ---
History of Present Illness Consult date: 11/10/21 History of present illness: HISTORY OF PRESENT ILLNESS: This is a 71-year-old female with a past medical history significant for paroxysmal atrial fibrillation with previous ablation, hypothyroidism, hyperlipidemia with statin intolerance, hypertension, anxiety, and coronary artery disease with previous PCI of the RCA. Patient follows in the office with Dr. Silva. We have been asked to see the patient in consultation for chest pain and tachycardia. Patient examined at the bedside. Patient states she presented to the hospital due to palpitations. She states that she felt like her whole body was also shaking. She also reports having some chest discomfort which has resolved at the time of our examination. When patient saw Dr. Abarca rd and September 2021 he was noted that she was taking atenolol at that time. Her medication list this admission does not include atenolol. The patient is unsure if she has been taking this or not. * EKG reveals appears to be atrial flutter with RVR * Chest xray negative for acute process * Laboratory data: WBC 12.3. Hemoglobin 14.0. Platelet count 335. D-dimer 0.20. Sodium 137. Potassium 4.1. BUN 26. Creatinine 0.84. Magnesium 1.2. * Current home cardiac medications include Eliquis 5 mg twice a day, aspirin 81 mg daily, Plavix 75 mg daily, Lasix 20 mg daily, Cozaar 25 mg daily, and Repa huang 140mg subcu Q 14 days * Most recent echocardiogram obtained in August 2021 reveals ejection fraction 50-55%, mild MR, mild TR * Cardiac catheterization history: August 2021 with PCI to the RCA. REVIEW OF SYSTEMS: At the time of my exam: CONSTITUTIONAL: Denies fever or chills. HEENT: Denies blurred vision, vision changes, or eye pain. Denies hemoptysis CARDIOVASCULAR: Denies chest pain. Denies orthopnea. Denies PND. Denies palpitations RESPIRATORY: Denies shortness of breath. GASTROINTESTINAL: Denies abdominal pain. Denies nausea or vomiting. HEMATOLOGIC: Denies bleeding disorders. GENITOURINARY: Denies any blood in urine. SKIN: Denies pruitis. Denies rash. PHYSICAL EXAM: VITAL SIGNS: Reviewed. GENERAL: Well-developed in no acute distress. HEENT: Head is normocephalic. Pupils are equal, round. Sclerae anicteric. Mucous membranes of the mouth are moist. Neck supple. No JVD or thyromegaly LUNGS: Respirations even and unlabored. Lungs essentially clear to auscultation bilaterally. HEART: Tachycardic. Regular rate and rhythm. S1 and S2 heard. ABDOMEN: Soft. Nondistended. Nontender. EXTREMITIES: Normal range of motion. No clubbing or cyanosis. Peripheral pulses intact. No lower extremity edema NEUROLOGIC: Awake and alert. Oriented x 3. ASSESSMENT: Chest pain Palpitations Typical atrial flutter with RVR Paroxysmal atrial fibrillation with previous ablation Coronary artery disease with previous PCI Hyperlipidemia with statin intolerance Hypertension Anxiety PLAN: An acute coronary event has been ruled out No need to repeat echocardiogram as this was performed earlier this year Begin IV Cardizem infusion at 10 mg an hour after a 10 mg bolus Begin metoprolol tartrate 50 mg twice a day Continue telemetry monitoring Resume home cardiac medications Continue with Eliquis and Plavix. Discontinue aspirin. Nothing by mouth at midnight. Possible cardioversion tomorrow if patient does not convert to SR Further recommendations pending patient's course Nurse practitioner note has been reviewed by physician. Signing provider agrees with the documented findings, assessment, and plan of care. Past Medical History Past Medical History: Atrial Fibrillation, Hypertension Additional Past Medical History / Comment(s): Diverticulitits History of Any Multi-Drug Resistant Organisms: None Reported Past Surgical History: Appendectomy, Cardiac Ablation, Cholecystectomy, Heart Catheterization With Stent, Tubal Ligation Additional Past Surgical History / Comment(s): colon surgery, heart ablation, hernia mesh Past Anesthesia/Blood Transfusion Reactions: No Reported Reaction Additional Past Anesthesia/Blood Transfusion Reaction / Comment(s): hard to wake up from anesthesia Past Psychological History: No Psychological Hx Reported Smoking Status: Never smoker Past Alcohol Use History: None Reported Past Drug Use History: None Reported - Past Family History Mother Family Medical History: AFIB, COPD, Hypertension Father Family Medical History: Cancer Medications and Allergies Home Medications Medication Instructions Recorded Confirmed Type Apixaban [Eliquis] 5 mg PO BID 08/26/21 11/10/21 History Aspirin 81 mg PO DAILY 08/26/21 11/10/21 History Ergocalciferol [Vitamin D2 (1250 1,250 mcg PO TH 08/26/21 11/10/21 History Mcg = 67709 Iu)] Furosemide [Lasix] 20 mg PO DAILY 08/26/21 11/10/21 History Levothyroxine Sodium 25 mcg PO DAILY 08/26/21 11/10/21 History Pantoprazole [Protonix] 40 mg PO DAILY 08/26/21 11/10/21 History Sertraline HCl [Zoloft] 50 mg PO DAILY 08/26/21 11/10/21 History Sucralfate [Carafate] 1 gm PO TID 08/26/21 11/10/21 History Clopidogrel [Plavix] 75 mg PO DAILY #30 tab 08/28/21 11/10/21 Rx Evolocumab [Repatha Sureclick] 140 mg SQ Q14D 11/10/21 11/10/21 History Losartan Potassium [Cozaar] 25 mg PO DAILY 11/10/21 11/10/21 History Magnesium Gluconate [Magonate] 500 mg PO BID 11/10/21 11/10/21 History Potassium Gluconate [Potassium 99 mg PO DAILY 11/10/21 11/10/21 History Gluconate ER] Allergies Allergy/AdvReac Type Severity Reaction Status Date / Time amoxicillin [From Augmentin] Allergy Nausea Verified 11/10/21 07:06 clarithromycin [From Biaxin] Allergy Nausea & Verified 11/10/21 07:06 Vomiting clavulanic acid Allergy Nausea Verified 11/10/21 07:06 [From Augmentin] levofloxacin [From Levaquin] Allergy Nausea Verified 11/10/21 07:06 milk Allergy Nausea & Verified 11/10/21 07:06 Vomiting nitrofurantoin Allergy Nausea & Verified 11/10/21 07:06 [From Macrobid] Vomiting sulfamethoxazole Allergy Nausea Verified 11/10/21 07:06 [From Bactrim] trimethoprim [From Bactrim] Allergy Nausea Verified 11/10/21 07:06 [id number] Reductase AdvReac Unknown Verified 11/10/21 07:06 Inhibitor Physical Exam Vitals: Vital Signs Temp Pulse Resp BP Pulse Ox 11/10/21 09:44 120 H 18 134/91 96 11/10/21 07:41 122 H 20 134/97 99 11/10/21 05:38 97.8 F 125 H 18 157/99 98 11/10/21 02:50 98.8 F 129 H 22 193/100 97 Intake and Output 04/01/2511/10/21 11/10/21 22:59 06:59 14:59 Other: Weight 106.594 kg Results 11/10/21 03:15 11/10/21 03:15 Cardiac Enzymes 11/10/21 11/10/21 11/10/21 Range/Units 03:15 03:15 07:43 AST 20 (14-36) U/L Troponin I 0.024 0.023 (0.000-0.034) ng/mL Coagulation 11/10/21 Range/Units 03:15 PT 10.1 (9.0-12.0) sec APTT 24.3 (22.0-30.0) sec CBC 11/10/21 Range/Units 03:15 WBC 12.3 H (3.8-10.6) k/uL RBC 4.52 (3.80-5.40) m/uL Hgb 14.0 (11.4-16.0) gm/dL Hct 42.6 (34.0-46.0) % Plt Count 335 (150-450) k/uL Comprehensive Metabolic Panel 11/10/21 Range/Units 03:15 Sodium 137 (137-145) mmol/L Potassium 4.1 (3.5-5.1) mmol/L Chloride 105 (98-107) mmol/L Carbon Dioxide 22 (22-30) mmol/L BUN 26 H (7-17) mg/dL Creatinine 0.84 (0.52-1.04) mg/dL Glucose 127 H (74-99) mg/dL Calcium 9.2 (8.4-10.2) mg/dL AST 20 (14-36) U/L ALT 18 (4-34) U/L Alkaline Phosphatase 85 (38-126) U/L Total Protein 6.7 (6.3-8.2) g/dL Albumin 3.8 (3.5-5.0) g/dL Current Medications Generic Name Dose Route Start Last Admin Trade Name Freq PRN Reason Stop Dose Admin Acetaminophen 650 mg 11/10/21 09:03 Acetaminophen Tab 325 Mg Tab PO Q6HR PRN Mild Pain or Fever > 100.5 Naloxone HCl 0.2 mg 11/10/21 09:03 Naloxone 0.4 Mg/Ml 1 Ml Vial IV Q2M PRN Opioid Reversal Nitroglycerin 0.4 mg 11/10/21 07:19 Nitroglycerin Sl Tabs 0.4 Mg Tab SUBLINGUAL Q5M PRN Chest Pain Intake and Output 11/09/21 11/10/21 11/10/21 22:59 06:59 14:59 Other: Weight 106.594 kg 11/10/21 03:15 11/10/21 03:15
[2021-11-10] MEDS: APIXABAN 5 MG TAB PO SCH (19:50)
[2021-11-11] MEDS: DILTIAZEM 125 MG in SODIUM CHLORIDE 0.9% 100 ML IV SCH ×2 (02:54→11:39)
[2021-11-11] MEDS: LEVOTHYROXINE 25 MCG TAB PO SCH (05:27)
--- NOTE | 2021-11-11 08:33 | P.PN ---
Subjective Progress Note Date: 11/11/21 HISTORY OF PRESENT ILLNESS This is a 71-year-old female patient of Dr. Suazo with past history of paroxysmal atrial fibrillation on long-term anticoagulation with eliquis with ablation done 2 years ago, history of asthma under the care of Dr. Barroso, hypothyroidism, hypertension, recurrent depression and generalized anxiety disorder, gastroesophageal reflux disease. Patient was last hospitalized in August of this she had which time she presented to [facility] [place] and due to concerns with EKG and mild elevation in troponins, patient was transferred to [facility] under the care of Dr. Silva underwent a cardiac catheterization with angioplasty and stent placement to the RCA. Patient states that for the past few days she's had episodes where she feels shaky and at one point thought her blood sugar was low at 8 some chicken but this did not seem to help. She states that she has had lightheaded episodes as well as shortness of breath. She states last night showing slept an hour and a half and her blood pressure was 174/105. She states she drinks some water and ate some radishes but at 2 AM that she needed to come in the hospital. She states she's had a type of pressure that was bouncing off her chest on the left side went to her back and radiating up to her neck. She denies any nausea. Patient also states that she has lost 33 pounds over the past 3 months. Patient presented to [facility] emergency center. She was found to be in atrial flutter with RVR running in the 120s and initial blood pressure was 193/100, pulse ox 97% on room air. WBC 12.3 otherwise CBC is unremarkable. INR 0.9. D-dimer 0.2. Electrolytes normal. BUN 26 and creatinine 0.84. Blood sugar 127. Magnesium 1.2. Troponins negative on 2 draws. TSH 5.380 with normal free T4 of 0.98. Influenza RSV and Covid 19 testing negative. Chest x-ray no active cardiopulmonary disease. CTA of the chest showed no evidence of pulmonary embolus. COPD with mild emphysema. Mild atrial dilatation, pulmonary arterial hypertension, CAD. 7 mm pulmonary nodule at the left apex. Recommend follow-up in 3-6 months. 11/11: This morning, patient remains in atrial flutter rate controlled. She has been continued on Lopressor 50 mg twice daily. Cardiology planning for possible cardioversion today with Dr. Silva. Echocardiogram reveals EF of 40-45% with mild concentric left hypertrophy, LA mildly dilated, mild aortic valve sclerosis, mild mitral regurgitation, mild tricuspid regurgitation. REVIEW OF SYSTEMS Constitutional: No fever, no chills, no night sweats. No weight change. No weakness, fatigue or lethargy. No daytime sleepiness. EENT: No headache. No blurred vision or double vision, no loss of vision. No loss of Hearing, no ringing in the ears, no dizziness. No nasal drainage or congestion. No epistaxis. No sore throat. Lungs: Reports shortness of breath, no cough, no sputum production. No wheezing. Cardiovascular: Denies chest pain, no lower extremity edema. Reports palpitations. No paroxysmal nocturnal dyspnea. No orthopnea. No lightheadedness or dizziness. No syncopal episodes. Abdominal: No abdominal pain. No nausea, vomiting. No diarrhea. No constipation. No bloody or tarry stools. No loss of appetite. Genitourinary: No dysuria, increased frequency, urgency. No urinary retention. Musculoskeletal: No myalgias. No muscle weakness, no gait dysfunction, no freq uent falls. No back pain. No neck pain. Integumentary: No wounds, no lesions. No rash or pruritus. No unusual bruising. No change in hair or nails. Neurologic: No aphasia. No facial droop. No change in mentation. No head injury. No headache. No paralysis. No paresthesia. Psychiatric: No depression. No anxiety. No mood swings. Endocrine: No abnormal blood sugars. No weight change. No excessive sweating or thirst. No cold intolerance. PHYSICAL EXAMINATION Gen: This is a 71-year-old female. She is resting in bed and appears to be comfortable. HEENT: Head is atraumatic, normocephalic. Pupils equal, round. Sclerae is anicteric. NECK: Supple. No JVD. No lymphadenopathy. No thyromegaly. LUNGS: Clear to auscultation. No wheezes or rhonchi. No intercostal retractions. HEART: Regular rate and rhythm. 2/6 systolic murmur. ABDOMEN: Soft. Bowel sounds are present. No masses. No tenderness. EXTREMITIES: No pedal edema. No calf tenderness. NEUROLOGICAL: Patient is awake, alert and oriented x3. Cranial nerves 2 through 12 are grossly intact. ASSESSMENT AND PLAN 1. Chest pressure, acute coronary syndrome ruled out. Cardiology consult appreciated. 2. Typical atrial flutter with RVR. Continue patient on metoprolol tartrate 50 mg twice daily, continue eliquis 5 mg twice daily. Patient may undergo cardioversion tomorrow if she does not convert to sinus rhythm. 3. Paroxysmal atrial fibrillation on long-term anticoagulation with eliquis and status post ablation in the past. 4. History of non-ST elevated myocardial infarction status post PCI of the proximal and mid RCA in August 2021. 5. Hypothyroidism. Continue levothyroxine 25 g daily 6. Hypertension. Continue Lasix 20 mg daily, losartan 25 mg daily, Lopressor 50 mg twice daily. 7. Moderate intermittent asthma, stable. 8. Gastroesophageal reflux disease. Continue Protonix 40 mg daily, Carafate 1 g 3 times daily. 9. Recurrent depression and generalized anxiety disorder. Continue Zoloft 50 mg daily 10. Hyperlipidemia. Patient is on Repatha 140 mg subcu every 14 days. 11. DVT prophylaxis. Eliquis. DISCHARGE PLAN Home. Impression and plan of care have been directed as dictated by the signing michaela garcia. Jocelyn Arellano nurse practitioner acting as scribe for signing physician. Objective - Vital Signs Vital signs: Vital Signs Temp 97.5 F L 11/11/21 02:18 Pulse 105 H 11/11/21 02:18 Resp 17 11/11/21 02:18 BP 130/87 11/11/21 02:18 Pulse Ox 96 11/11/21 02:18 Intake & Output 11/10/21 11/11/21 11/11/21 18:59 06:59 18:59 Intake Total 161.333 Balance 161.333 Weight 106.594 kg Intake: Intake, IV Titration 43.333 Amount Diltiazem 125 mg In 43.333 Sodium Chloride 0.9% 100 ml @ 10 MG/HR 10 mls/hr IV .[id number] [facility] Rx#: [id number] Oral 118 Other: # Voids 2 - Labs CBC & Chem 7: 11/10/21 03:15 11/10/21 03:15 Labs: Abnormal Lab Results - Last 24 Hours (Table) 11/10/21 Range/Units 03:15 TSH 5.380 H (0.465-4.680) mIU/L
[2021-11-11] MEDS: FUROSEMIDE 20 MG TAB PO SCH (08:38)
[2021-11-11] MEDS: METOPROLOL TARTRATE 50 MG TAB PO SCH ×2 (08:38→20:42)
[2021-11-11] MEDS: APIXABAN 5 MG TAB PO SCH ×2 (08:38→20:42)
[2021-11-11] MEDS: SERTRALINE 50 MG TAB PO SCH (08:38)
[2021-11-11] MEDS: SUCRALFATE 1 GM TAB PO SCH ×3 (08:38→20:42)
[2021-11-11] MEDS: MAGNESIUM OXIDE 400 MG TAB PO SCH ×2 (08:38→20:42)
[2021-11-11] MEDS: LOSARTAN 25 MG TAB PO SCH (08:38)
[2021-11-11] MEDS: PANTOPRAZOLE 40 MG TABLET PO SCH (08:39)
[2021-11-11] MEDS: NON FORMULARY DRUG (Potassium Gluconate [Potassium Gluconate Er] 99 MG Tablet) PO SCH (08:39)
[2021-11-11] MEDS ORDERED: ASPIRIN 81 MG PO SCH (09:00)
--- NOTE | 2021-11-11 10:02 | P.PN ---
Subjective Progress Note Date: 11/11/21 HISTORY OF PRESENT ILLNESS: This is a 71-year-old female with a past medical history significant for paroxysmal atrial fibrillation with previous ablation, hypothyroidism, hyperlipidemia with statin intolerance, hypertension, anxiety, and coronary artery disease with previous PCI of the RCA. Patient follows in the office with Dr. Silva. We have been asked to see the patient in consultation for chest pain and tachycardia. Patient examined at the bedside. Patient states she p resented to the hospital due to palpitations. She states that she felt like her whole body was also shaking. She also reports having some chest discomfort which has resolved at the time of our examination. When patient saw Dr. Silva and September 2021 he was noted that she was taking atenolol at that time. Her medication list this admission does not include atenolol. The patient is unsure if she has been taking this or not. * EKG reveals appears to be atrial flutter with RVR * Chest xray negative for acute process * Laboratory data: WBC 12.3. Hemoglobin 14.0. Platelet count 335. D-dimer 0.20. Sodium 137. Potassium 4.1. BUN 26. Creatinine 0.84. Magnesium 1.2. * Current home cardiac medications include Eliquis 5 mg twice a day, aspirin 81 mg daily, Plavix 75 mg daily, Lasix 20 mg daily, Cozaar 25 mg daily, and Repatha 140mg subcu Q 14 days * Most recent echocardiogram obtained in August 2021 reveals ejection fraction 50-55%, mild MR, mild TR * Cardiac catheterization history: August 2021 with PCI to the RCA. 11/11/2021 Patient examined this morning at the bedside. Patient denies chest pain or pressure. She denies shortness of breath. She reports feeling lightheaded and fatigued this morning. She remains in atrial flutter with controlled ventricu lar rate. Her Cardizem drip has been discontinued. Echocardiogram completed revealing ejection fraction 40-45%, mild MR, and mild TR. PHYSICAL EXAM: VITAL SIGNS: Reviewed. GENERAL: Well-developed in no acute distress. HEENT: Head is normocephalic. Pupils are equal, round. Sclerae anicteric. Mucous membranes of the mouth are moist. Neck supple. No JVD or thyromegaly LUNGS: Respirations even and unlabored. Lungs essentially clear to auscultation bilaterally. HEART: Irregular rate and rhythm. S1 and S2 heard. ABDOMEN: Soft. Nondistended. Nontender. EXTREMITIES: Normal range of motion. No clubbing or cyanosis. Peripheral pulses intact. No lower extremity edema NEUROLOGIC: Awake and alert. Oriented x 3. ASSESSMENT: Chest pain Palpitations Typical atrial flutter with RVR Paroxysmal atrial fibrillation with previous ablation Coronary artery disease with previous PCI Hyperlipidemia with statin intolerance Hypertension Anxiety PLAN: Continue current cardiac medications Patient to undergo CHRIS and cardioversion today with Dr. Silva Further recommendations pending patient's course Nurse practitioner note has been reviewed by physician. Signing provider agrees with the documented findings, assessment, and plan of care. Objective - Vital Signs Vital signs: Vital Signs Temp 97.6 F 11/11/21 07:00 Pulse 64 11/11/21 07:00 Resp 18 11/11/21 08:00 BP 129/72 11/11/21 07:00 Pulse Ox 99 11/11/21 07:00 Intake & Output 11/10/21 11/11/21 11/11/21 18:59 06:59 18:59 Intake Total 161.333 Balance 161.333 Weight 106.594 kg Intake: Intake, IV Titration 43.333 Amount Diltiazem 125 mg In 43.333 Sodium Chloride 0.9% 100 ml @ 10 MG/HR 10 mls/hr IV .[id number] [facility] Rx#: [id number] Oral 118 Other: # Voids 2 - Labs CBC & Chem 7: 11/10/21 03:15 11/10/21 03:15 Labs: Abnormal Lab Results - Last 24 Hours (Table) 11/10/21 Range/Units 03:15 TSH 5.380 H (0.465-4.680) mIU/L
[2021-11-11 13:02] LABS: Glucose,Whole Blood 97 mg/dL (75-99)
[2021-11-11] MEDS ORDERED: SODIUM CHLORIDE 0.9% 1,000 ML IV ONE (14:29)
[2021-11-11] MEDS ORDERED: PROPOFOL 10 MG/ML 20 ML VIAL IV ONE (14:30)
--- NOTE | 2021-11-11 21:16 | P.TEE ---
Description of Procedure(s): Procedure performed: Transesophageal Echocardiogram with color flow doppler, pulsed wave doppler and continuous wave doppler, Synchronized cardioversion Moderate conscious sedation: Moderate conscious sedation was supplied by anesthesia, see separate report Complications: none Indications: Symptomatic atrial flutter PROCEDURE: After the risks, benefits and alternatives of the above mentioned procedure was explained in detail with the patient, informed consent was obtained. Patient was brought to the lab in a fasting state. Patient was given sedation by anesthesia, see separate report. The throat was sprayed with Hurricane to anesthetize the throat. A lubricated Omni probe was then introduced into the esophagus and stomach and multiple views were obtained. 2D echo with color flow doppler, pulsed wave doppler and continuous wave doppler was utilized. The probe was then removed. There was no DWAYNE thrombus noted and therefore synchronized cardioversion was performed with 120J with resultant normal sinus rhythm. Patient tolerated the procedure well. Patient was transferred to the post procedure area in stable and satisfactory condition. FINDINGS: 1. The aortic valve is tricuspid and functioning normally with no significant aortic stenosis or regurgitation. 2. The mitral valve appears be normal mild mitral regurgitation. 3. Tricuspid valve and normal. 4. The interatrial septum is intact. No evidence of PFO. 5. Left atrial appendage has no DWAYNE thrombus. 6. Left ventricular size appears normal. Left ventricular function is low with global hypokinesis and EF 35-40%. 7. The left and right atria are moderately dilated.
[2021-11-12 03:51] VITALS: RESP 17
[2021-11-12] MEDS: LEVOTHYROXINE 25 MCG TAB PO SCH (05:23)
[2021-11-12 07:36] VITALS: BP 147/75; PULSE 55; TEMP 97.8
[2021-11-12] MEDS: PANTOPRAZOLE 40 MG TABLET PO SCH (09:44)
[2021-11-12] MEDS: METOPROLOL TARTRATE 50 MG TAB PO SCH (09:45)
[2021-11-12] MEDS: APIXABAN 5 MG TAB PO SCH (09:45)
[2021-11-12] MEDS: FUROSEMIDE 20 MG TAB PO SCH (09:45)
[2021-11-12] MEDS: CLOPIDOGREL 75 MG TAB PO SCH (09:45)
[2021-11-12] MEDS: MAGNESIUM OXIDE 400 MG TAB PO SCH (09:45)
[2021-11-12] MEDS: LOSARTAN 25 MG TAB PO SCH (09:45)
[2021-11-12] MEDS: NON FORMULARY DRUG (Potassium Gluconate [Potassium Gluconate Er] 99 MG Tablet) PO SCH (09:47)
[2021-11-12] MEDS: SUCRALFATE 1 GM TAB PO SCH (10:32)
[2021-11-12] MEDS: SERTRALINE 50 MG TAB PO SCH (10:32)
--- NOTE | 2021-11-12 10:43 | P.DS ---
Providers Date of admission: 11/11/21 07:31 Attending physician: Delano Joy Consults: 11/10/21 09:04 Consult Physician Routine Consulting Provider: Matty Hooper Consult Reason/Comments: atypical chest pain, tachycardia Do you want consulting provider notified?: Yes Primary care physician: Yash De La VegaFarrell [place] [facility] Course: HISTORY OF PRESENT ILLNESS This is a 71-year-old female patient of Dr. Suazo with past history of paroxysmal atrial fibrillation on long-term anticoagulation with eliquis with ablation done 2 years ago, history of asthma under the care of Dr. Barroso, hypothyroidism, hypertension, recurrent depression and generalized anxiety disorder, gastroesophageal reflux disease. Patient was last hospitalized in August of this she had which time she presented to [facility] and due to concerns with EKG and mild elevation in troponins, patient was transferred to [facility] under the care of Dr. Silva underwent a cardiac catheterization with angioplasty and stent placement to the RCA. Patient states that for the past few days she's had episodes where she feels shaky and at one point thought her blood sugar was low at 8 some chicken but this did not seem to help. She states that she has had lightheaded episodes as well as shortness of breath. She states last night showing slept an hour and a half and her blood pressure was 174/105. She states she drinks some water and ate some radishes but at 2 AM that she needed to come in the hospital. She states she's had a type of pressure that was bouncing off her chest on the left side went to her back and radiating up to her neck. She denies any nausea. Patient also states that she has lost 33 pounds over the past 3 months. Patient presented to [facility] emergency center. She was found to be in atrial flutter with RVR running in the 120s and initial blood pressure was 193/100, pulse ox 97% on room air. WBC 12.3 otherwise CBC is unremarkable. INR 0.9. D-dimer 0.2. Electrolytes normal. BUN 26 and creatinine 0.84. Blood sugar 127. Magnesium 1.2. Troponins negative on 2 draws. TSH 5.380 with normal free T4 of 0.98. Influenza RSV and Covid 19 testing negative. Chest x-ray no active cardiopulmonary disease. CTA of the chest showed no evidence of pulmonary embolus. COPD with mild emphysema. Mild atrial dilatation, pulmonary arterial hypertension, CAD. 7 mm pulmonary nodule at the left apex. Recommend follow-up in 3-6 months. 11/11: This morning, patient remains in atrial flutter rate controlled. She has been continued on Lopressor 50 mg twice daily. Cardiology planning for possible cardioversion today with Dr. Silva. Echocardiogram reveals EF of 40-45% with mild concentric left hypertrophy, LA mildly dilated, mild aortic valve sclerosis, mild mitral regurgitation, mild tricuspid regurgitation. 11/12: Patient is found sitting up in bed in no acute distress. Cardioversion was completed yesterday. Patient is in sinus rhythm with rate controlled. Lopressor be decreased to 25 mg twice a day. Patient is anxious to go home today. Discharge diagnosis 1. Chest pressure, acute coronary syndrome ruled out. 2. Typical atrial flutter with RVR. 3. Paroxysmal atrial fibrillation on long-term anticoagulation with eliquis and status post ablation in the past. 4. History of non-ST elevated myocardial infarction status post PCI of the proximal and mid RCA in August 2021. 5. Hypothyroidism. 6. Hypertension. 7. Moderate intermittent asthma, stable. 8. Gastroesophageal reflux disease. 9. Recurrent depression and generalized anxiety disorder. 10. Hyperlipidemia. DISCHARGE Disposition Home with self care Impression and plan of care have been directed as dictated by the signing physician. Domi Shukla nurse practitioner acting as scribe for signing physician. Plan - Discharge Summary Discharge Rx Participant: No New Discharge Prescriptions: New Nitroglycerin Sl Tabs [Nitrostat] 0.4 mg SUBLINGUAL Q5M PRN tab PRN Reason: Chest Pain Metoprolol Tartrate [Lopressor] 25 mg PO BID #60 tablet Continue Aspirin 81 mg PO DAILY Ergocalciferol [Vitamin D2 (1250 Mcg = 97553 Iu)] 1,250 mcg PO TH Apixaban [Eliquis] 5 mg PO BID Clopidogrel [Plavix] 75 mg PO DAILY #30 tab Evolocumab [Repatha Sureclick] 140 mg SQ Q14D Sucralfate [Carafate] 1 gm PO TID Pantoprazole [Protonix] 40 mg PO DAILY Sertraline HCl [Zoloft] 50 mg PO DAILY Levothyroxine Sodium 25 mcg PO DAILY Furosemide [Lasix] 20 mg PO DAILY Magnesium Gluconate [Magonate] 500 mg PO BID Potassium Gluconate [Potassium Gluconate ER] 99 mg PO DAILY Losartan Potassium [Cozaar] 25 mg PO DAILY Discharge Medication List Apixaban [Eliquis] 5 mg PO BID 08/26/21 [History] Aspirin 81 mg PO DAILY 08/26/21 [History] Ergocalciferol [Vitamin D2 (1250 Mcg = 14156 Iu)] 1,250 mcg PO TH 08/26/21 [History] Furosemide [Lasix] 20 mg PO DAILY 08/26/21 [History] Levothyroxine Sodium 25 mcg PO DAILY 08/26/21 [History] Pantoprazole [Protonix] 40 mg PO DAILY 08/26/21 [History] Sertraline HCl [Zoloft] 50 mg PO DAILY 08/26/21 [History] Sucralfate [Carafate] 1 gm PO TID 08/26/21 [History] Clopidogrel [Plavix] 75 mg PO DAILY #30 tab 08/28/21 [Rx] Evolocumab [Repatha Sureclick] 140 mg SQ Q14D 11/10/21 [History] Losartan Potassium [Cozaar] 25 mg PO DAILY 11/10/21 [History] Magnesium Gluconate [Magonate] 500 mg PO BID 11/10/21 [History] Potassium Gluconate [Potassium Gluconate ER] 99 mg PO DAILY 11/10/21 [History] Metoprolol Tartrate [Lopressor] 25 mg PO BID #60 tablet 11/12/21 [Rx] Nitroglycerin Sl Tabs [Nitrostat] 0.4 mg SUBLINGUAL Q5M PRN tab 11/12/21 [Rx] Follow up Appointment(s)/Referral(s): Michael Silva DO [STAFF PHYSICIAN] - 1 Week (has appointment scheduled for 11/17) Yash Suazo DO [Primary Care Provider] - 1 Week
--- NOTE | 2021-11-13 13:56 | P.PN ---
Subjective Progress Note Date: 11/12/21 HISTORY OF PRESENT ILLNESS: This is a 71-year-old female with a past medical history significant for paroxysmal atrial fibrillation with previous ablation, hypothyroidism, hyperlipidemia with statin intolerance, hypertension, anxiety, and coronary artery disease with previous PCI of the RCA. Patient follows in the office with Dr. Silva. We have been asked to see the patient in consultation for chest pain and tachycardia. Patient examined at the bedside. Patient states she p resented to the hospital due to palpitations. She states that she felt like her whole body was also shaking. She also reports having some chest discomfort which has resolved at the time of our examination. When patient saw Dr. Silva and September 2021 he was noted that she was taking atenolol at that time. Her medication list this admission does not include atenolol. The patient is unsure if she has been taking this or not. * EKG reveals appears to be atrial flutter with RVR * Chest xray negative for acute process * Laboratory data: WBC 12.3. Hemoglobin 14.0. Platelet count 335. D-dimer 0.20. Sodium 137. Potassium 4.1. BUN 26. Creatinine 0.84. Magnesium 1.2. * Current home cardiac medications include Eliquis 5 mg twice a day, aspirin 81 mg daily, Plavix 75 mg daily, Lasix 20 mg daily, Cozaar 25 mg daily, and Repatha 140mg subcu Q 14 days * Most recent echocardiogram obtained in August 2021 reveals ejection fraction 50-55%, mild MR, mild TR * Cardiac catheterization history: August 2021 with PCI to the RCA. 11/11/2021 Patient examined this morning at the bedside. Patient denies chest pain or pressure. She denies shortness of breath. She reports feeling lightheaded and fatigued this morning. She remains in atrial flutter with controlled ventricu lar rate. Her Cardizem drip has been discontinued. Echocardiogram completed revealing ejection fraction 40-45%, mild MR, and mild TR. 11/12/2021 Patient underwent cardioversion yesterday and remains in sinus rhythm. Patient states that she is feeling well much better. She is on Lopressor 50 mg twice daily which will be decreased to 25 twice daily as heart rate is running in the 50s. PHYSICAL EXAM: VITAL SIGNS: Reviewed. GENERAL: Well-developed in no acute distress. HEENT: Head is normocephalic. Pupils are equal, round. Sclerae anicteric. Mucous membranes of the mouth are moist. Neck supple. No JVD or thyromegaly LUNGS: Respirations even and unlabored. Lungs essentially clear to auscultation bilaterally. HEART: Regular rate and rhythm. S1 and S2 heard. ABDOMEN: Soft. Nondistended. Nontender. EXTREMITIES: Normal range of motion. No clubbing or cyanosis. Peripheral pulses intact. No lower extremity edema NEUROLOGIC: Awake and alert. Oriented x 3. ASSESSMENT: Chest pain Palpitations Typical atrial flutter with RVR status post cardioversion 11/11 Paroxysmal atrial fibrillation with previous ablation Coronary artery disease with previous PCI Hyperlipidemia with statin intolerance Hypertension Anxiety PLAN: Continue current cardiac medications and decrease Lopressor to 25 mg twice daily Follow-up with Dr. Silva in 1 week Further recommendations pending patient's course Nurse practitioner note has been reviewed by physician. Signing provider agrees with the documented findings, assessment, and plan of care. Objective - Vital Signs Vital signs: Vital Signs Temp 97.8 F 11/12/21 07:10 Pulse 55 L 11/12/21 07:10 Resp 17 11/12/21 07:10 BP 147/75 11/12/21 07:10 Pulse Ox 99 11/12/21 07:10 Intake & Output 11/11/21 11/12/21 11/12/21 18:59 06:59 18:59 Intake Total 318 Balance 318 Intake: IV 200 Oral 118 Other: # Voids 3 2 - Labs CBC & Chem 7: 11/10/21 03:15 11/10/21 03:15
== END 2021-11-12 11:40 | disposition home or self-care (01) | DRG 309 ==
LOC: EC 02:49 → 6NMEDSUR 09:32 → OBSVTOIN 11-11 07:31
PROVIDERS: ADMIT Internal Medicine Geriatric Medicine; ATTEND Internal Medicine Geriatric Medicine
PROC: B24BZZ4 Ultrasonography of Heart with Aorta, Transesophageal (ICD-10-PCS; principal; 2021-11-11 12:45)
PROC: 5A2204Z Restoration of Cardiac Rhythm, Single (ICD-10-PCS; principal; 2021-11-11 12:45)
DX: I48.3 Typical atrial flutter (principal); F33.9 Major depressive disorder, recurrent, unspecified; I48.0 Paroxysmal atrial fibrillation; Z20.822 Contact with and (suspected) exposure to COVID-19; I27.21 Secondary pulmonary arterial hypertension; I25.2 Old myocardial infarction; J43.9 Emphysema, unspecified; J45.20 Mild intermittent asthma, uncomplicated; K21.9 Gastro-esophageal reflux disease without esophagitis; Z79.01 Long term (current) use of anticoagulants; Z79.02 Long term (current) use of antithrombotics/antiplatelets; Z79.82 Long term (current) use of aspirin; E03.9 Hypothyroidism, unspecified; E78.5 Hyperlipidemia, unspecified; F41.1 Generalized anxiety disorder; I10 Essential (primary) hypertension; I08.1 Rheumatic disorders of both mitral and tricuspid valves; I25.10 Atherosclerotic heart disease of native coronary artery without angina pectoris; Z79.890 Hormone replacement therapy; Z79.899 Other long term (current) drug therapy; Z80.0 Family history of malignant neoplasm of digestive organs; Z82.49 Family history of ischemic heart disease and other diseases of the circulatory system; Z82.5 Family history of asthma and other chronic lower respiratory diseases; Z95.5 Presence of coronary angioplasty implant and graft; Z91.011 Allergy to milk products; Z88.1 Allergy status to other antibiotic agents; Z88.0 Allergy status to penicillin; Z88.2 Allergy status to sulfonamides; Z88.8 Allergy status to other drugs, medicaments and biological substances; Z90.49 Acquired absence of other specified parts of digestive tract; Z98.51 Tubal ligation status; Z98.890 Other specified postprocedural states; Z80.9 Family history of malignant neoplasm, unspecified
CPT/HCPCS: 36415; 71046; 71275; 80053; 83735; 84439; 84443; 84484; 85025; 85379; 85610; 85730; 87636; 92960; 93005; 93306; 93312; 93320; 93325; 96365; 96366; 96375; 99285

== ENCOUNTER 2022-07-19 10:26 | Observation (INO) | payer MEDICARE ==
--- NOTE | 2022-07-19 10:53 | XR ---
EXAMINATION TYPE: XR chest 2V DATE OF EXAM: 07/19/2022 COMPARISON: 11/10/2021 TECHNIQUE: PA and lateral views submitted. HISTORY: Pain FINDINGS: The lungs are clear and there is no pneumothorax, pleural effusion, or focal pneumonia. Pain right size normal. Hypertrophic and degenerative changes of the spine. Arthropathy of the shoulders. Surgic al clips in the right upper quadrant. No overt failure. IMPRESSION: 1. No acute process.
[2022-07-19 11:00] LABS: Basophils % (A) 1 %; Eosinophils # (A) 0.1 k/uL (0-0.7); Eosinophils % (A) 2 %; HCT 37.7 % (34.0-46.0); HGB 12.8 gm/dL (11.4-16.0); Lymphocytes # (A) 1.2 k/uL (1.0-4.8); Lymphocytes % (A) 19 %; MCH 31.8 pg (25.0-35.0); MCV 93.7 fL (80.0-100.0); Mean Platelet Volume 8.5; Monocytes # (A) 0.4 k/uL (0-1.0); Monocytes % (A) 7 %; Neutrophils # (A) 4.4 k/uL (1.3-7.7); Neutrophils % (A) 70 %; Platelet Count 285 k/uL (150-450); RBC 4.02 m/uL (3.80-5.40); RDW 13.3 % (11.5-15.5); WBC 6.3 k/uL (3.8-10.6)
[2022-07-19 11:12] LABS: ALT 18 U/L (4-34); AST 24 U/L (14-36); African American GFR (CKD) >90 (>60 ml/min/1.73 sqM); Albumin 3.8 g/dL (3.5-5.0); Alkaline Phosphatase 77 U/L (38-126); Anion Gap 8 mmol/L; Blood Urea Nitrogen 18 mg/dL (7-17); Calcium 8.8 mg/dL (8.4-10.2); Carbon Dioxide 24 mmol/L (22-30); Chloride 108 mmol/L (98-107); Glucose 98 mg/dL (74-99); Non-African American GFR(CKD) 84 (>60 ml/min/1.73 sqM); Potassium 4.3 mmol/L (3.5-5.1); Sodium 140 mmol/L (137-145); Total Bilirubin 0.4 mg/dL (0.2-1.3); Total Protein 6.5 g/dL (6.3-8.2)
[2022-07-19 11:32] LABS: INR 0.9 (<1.2); Partial Thromboplastin Time 26.6 sec (22.0-30.0); Prothrombin Time 10.1 sec (9.0-12.0)
--- NOTE | 2022-07-19 11:48 | ED ---
General Adult HPI - General Chief complaint: Arrhythmia/Palpitations Stated complaint: AFib Time Seen by Provider: 07/19/22 11:32 Source: patient, RN notes reviewed Mode of arrival: ambulatory Limitations: no limitations - History of Present Illness Initial comments: Patient is a 72-year-old female presenting to the emergency room with complaints of racing irregular heartbeat and shortness of breath which began upon waking earlier today. She reports symptoms were worse after ambulating to the bathroom but did not improve significantly after lying down. She reports that her shortness of breath feels similar to as if she had exercise signif icantly. She denies any difficulty taking in a deep breath or pain with inspiration. She reports that she continues to feel her heart racing but not as significantly as prior to arrival to the emergency room. She denies any chest pain, abdominal pain, nausea, vomiting, fevers or chills. She does report some lower back pain and urinary incontinence and is currently being treated with doxycycline for urinary tract infection; she started this medication approximately 24 hours ago. She has a history of atrial fibrillation and is on Eliquis. In addition to her history of atrial fibrillation she has a past medical history significant for asthma, COPD, [place], hypertension, osteoarthritis, hypothyroidism, and degenerative disc disease. - Related Data Home Medications Medication Instructions Recorded Confirmed Apixaban [Eliquis] 5 mg PO BID 08/26/21 11/10/21 Aspirin 81 mg PO DAILY 08/26/21 11/10/21 Ergocalciferol [Vitamin D2 (1250 1,250 mcg PO TH 08/26/21 11/10/21 Mcg = 87680 Iu)] Furosemide [Lasix] 20 mg PO DAILY 08/26/21 11/10/21 Levothyroxine Sodium 25 mcg PO DAILY 08/26/21 11/10/21 Pantoprazole [Protonix] 40 mg PO DAILY 08/26/21 11/10/21 Sertraline HCl [Zoloft] 50 mg PO DAILY 08/26/21 11/10/21 Sucralfate [Carafate] 1 gm PO TID 08/26/21 11/10/21 Evolocumab [Repatha Sureclick] 140 mg SQ Q14D 11/10/21 11/10/21 Losartan Potassium [Cozaar] 25 mg PO DAILY 11/10/21 11/10/21 Magnesium Gluconate [Magonate] 500 mg PO BID 11/10/21 11/10/21 Potassium Gluconate [Potassium 99 mg PO DAILY 11/10/21 11/10/21 Gluconate ER] Previous Rx's Medication Instructions Recorded Clopidogrel [Plavix] 75 mg PO DAILY #30 tab 08/28/21 Metoprolol Tartrate [Lopressor] 25 mg PO BID #60 tablet 11/12/21 Nitroglycerin Sl Tabs [Nitrostat] 0.4 mg SUBLINGUAL Q5M PRN tab 11/12/21 Allergies Allergy/AdvReac Type Severity Reaction Status Date / Time amoxicillin [From Augmentin] Allergy Nausea Verified 07/19/22 14:13 ciprofloxacin [From Cipro] Allergy Rash/Hives Verified 07/19/22 14:13 clarithromycin [From Biaxin] Allergy Nausea & Verified 07/19/22 14:13 Vomiting clavulanic acid Allergy Nausea Verified 07/19/22 14:13 [From Augmentin] levofloxacin [From Levaquin] Allergy Nausea Verified 07/19/22 14:13 milk Allergy Nausea & Verified 07/19/22 14:13 Vomiting nitrofurantoin Allergy Nausea & Verified 07/19/22 14:13 [From Macrobid] Vomiting sulfamethoxazole Allergy Nausea Verified 07/19/22 14:13 [From Bactrim] trimethoprim [From Bactrim] Allergy Nausea Verified 07/19/22 14:13 [id number] Reductase AdvReac Unknown Verified 07/19/22 14:13 Inhibitor Review of Systems ROS Statement: Those systems with pertinent positive or pertinent negative responses have been documented in the HPI. ROS Other: All systems not noted in ROS Statement are negative. Past Medical History Past Medical History: Atrial Fibrillation, Asthma, Coronary Artery Disease (CAD), Hearing Disorder / Deafness, Hypertension, Myocardial Infarction ([place]), Osteoarthritis (OA), Thyroid Disorder Additional Past Medical History / Comment(s): Bronchitis, sinus issues, chronic cervical and back pain, DDD, hypoglycemia, hypothyroid, diverticulitis/bowel resection, bilateral tinnitis, "water retention" Last Myocardial Infarction Date:: 08/26/21 History of Any Multi-Drug Resistant Organisms: None Reported Past Surgical History: Appendectomy, Bladder Surgery, Bowel Resection, Cardiac Ablation, Cholecystectomy, Heart Catheterization, Heart Catheterization With Stent, Hernia Repair, Tubal Ligation Additional Past Surgical History / Comment(s): 08/26/21 PCI with stent, bowel resection d/t diverticulitis, incisional hernia repair x2 with mesh, appendix burst and put hole in bladder/pt had surgery to repair the hole Past Anesthesia/Blood Transfusion Reactions: No Reported Reaction Additional Past Anesthesia/Blood Transfusion Reaction / Comment(s): hard to wake up from anesthesia Date of Last Stent Placement:: 08/26/21 Past Psychological History: Anxiety, Depression Smoking Status: Never smoker Past Alcohol Use History: None Reported Past Drug Use History: None Reported - Past Family History Mother Family Medical History: AFIB, COPD, Hypertension Father Family Medical History: Cancer General Exam Limitations: no limitations General appearance: alert, in no apparent distress Head exam: Present: atraumatic, normocephalic, normal inspection Eye exam: Present: normal appearance, PERRL, EOMI. Absent: scleral icterus, conjunctival injection, periorbital swelling ENT exam: Present: normal exam, mucous membranes moist Neck exam: Present: normal inspection, full ROM. Absent: lymphadenopathy Respiratory exam: Present: normal lung sounds bilaterally. Absent: respiratory distress, wheezes, rales, rhonchi, stridor Cardiovascular Exam: Present: regular rate, normal rhythm, normal heart sounds. Absent: systolic murmur, diastolic murmur, rubs, gallop, clicks GI/Abdominal exam: Present: soft, normal bowel sounds. Absent: distended, tenderness, guarding, rebound, rigid Extremities exam: Present: normal inspection. Absent: pedal edema, joint swelling Back exam: Present: normal inspection Neurological exam: Present: alert, oriented X3, CN II-XII intact Psychiatric exam: Present: normal affect, normal mood Course Vital Signs 07/19/22 10:28 Temperature 97.8 F Pulse Rate 101 H Respiratory 20 Rate Blood Pressure 155/78 O2 Sat by Pulse 99 Oximetry Medical Decision Making - Medical Decision Making 72-year-old female presenting to the emergency room with complaints of palpitation and shortness breath with acute onset earlier today. Orders placed while patient was still in triage including EKG, chest x-ray, CMP, troponin, magnesium, coags and d-dimer and CBC. EKG demonstrates sinus tachycardia with first-degree AV block. Chest x-ray image intervertebral knee demonstrates no acute cardiopulmonary disease/process. Overall labs are unremarkable, troponin negative, d-dimer normal, coags normal, CBC without abnormalities. CMP does show slightly elevated BUN at 18 otherwise no significant abnormalities. No indication for further diagnostic imaging or laboratory studies at this time however given patient's comorbidities and presentation of symptoms recommend observation stay for further evaluation and monitoring. Patient agreeable to this plan. Spoke with Edward Xiao from [facility] regarding patient she is accepting of admission. Admission time occurred during downtime orders to be placed after downtime resolved. No additional orders received from her at this time. Case discussed with Dr. Motta. - Lab Data Result diagrams: 07/19/22 10:50 07/19/22 10:50 Lab Results 07/19/22 07/19/22 07/19/22 Range/Units 10:50 10:50 10:50 WBC 6.3 (3.8-10.6) k/uL RBC 4.02 (3.80-5.40) m/uL Hgb 12.8 (11.4-16.0) gm/dL Hct 37.7 (34.0-46.0) % MCV 93.7 (80.0-100.0) fL MCH 31.8 (25.0-35.0) pg MCHC 34.0 (31.0-37.0) g/dL RDW 13.3 (11.5-15.5) % Plt Count 285 (150-450) k/uL MPV 8.5 Neutrophils % 70 % Lymphocytes % 19 % Monocytes % 7 % Eosinophils % 2 % Basophils % 1 % Neutrophils # 4.4 (1.3-7.7) k/uL Lymphocytes # 1.2 (1.0-4.8) k/uL Monocytes # 0.4 (0-1.0) k/uL Eosinophils # 0.1 (0-0.7) k/uL Basophils # 0.0 (0-0.2) k/uL PT 10.1 (9.0-12.0) sec INR 0.9 (<1.2) APTT 26.6 (22.0-30.0) sec D-Dimer 0.36 (<0.60) mg/L FEU Sodium 140 (137-145) mmol/L Potassium 4.3 (3.5-5.1) mmol/L Chloride 108 H (98-107) mmol/L Carbon Dioxide 24 (22-30) mmol/L Anion Gap 8 mmol/L BUN 18 H (7-17) mg/dL Creatinine 0.72 (0.52-1.04) mg/dL Est GFR (CKD-EPI)AfAm >90 (>60 ml/min/1.73 sqM) Est GFR (CKD-EPI)NonAf 84 (>60 ml/min/1.73 sqM) Glucose 98 (74-99) mg/dL Calcium 8.8 (8.4-10.2) mg/dL Total Bilirubin 0.4 (0.2-1.3) mg/dL AST 24 (14-36) U/L ALT 18 (4-34) U/L Alkaline Phosphatase 77 (38-126) U/L Troponin I (0.000-0.034) ng/mL Total Protein 6.5 (6.3-8.2) g/dL Albumin 3.8 (3.5-5.0) g/dL 07/19/22 Range/Units 10:50 WBC (3.8-10.6) k/uL RBC (3.80-5.40) m/uL Hgb (11.4-16.0) gm/dL Hct (34.0-46.0) % MCV (80.0-100.0) fL MCH (25.0-35.0) pg MCHC (31.0-37.0) g/dL RDW (11.5-15.5) % Plt Count (150-450) k/uL MPV Neutrophils % % Lymphocytes % % Monocytes % % Eosinophils % % Basophils % % Neutrophils # (1.3-7.7) k/uL Lymphocytes # (1.0-4.8) k/uL Monocytes # (0-1.0) k/uL Eosinophils # (0-0.7) k/uL Basophils # (0-0.2) k/uL PT (9.0-12.0) sec INR (<1.2) APTT (22.0-30.0) sec D-Dimer (<0.60) mg/L FEU Sodium (137-145) mmol/L Potassium (3.5-5.1) mmol/L Chloride (98-107) mmol/L Carbon Dioxide (22-30) mmol/L Anion Gap mmol/L BUN (7-17) mg/dL Creatinine (0.52-1.04) mg/dL Est GFR (CKD-EPI)AfAm (>60 ml/min/1.73 sqM) Est GFR (CKD-EPI)NonAf (>60 ml/min/1.73 sqM) Glucose (74-99) mg/dL Calcium (8.4-10.2) mg/dL Total Bilirubin (0.2-1.3) mg/dL AST (14-36) U/L ALT (4-34) U/L Alkaline Phosphatase (38-126) U/L Troponin I <0.012 (0.000-0.034) ng/mL Total Protein (6.3-8.2) g/dL Albumin (3.5-5.0) g/dL - EKG Data EKG Comments: EKG completed at 1202 interpreted by me demonstrates sinus tachycardia with first-degree AV block. Ventricular rate 101 bpm, RI interval 245 ms, QRS duration 95 ms, QT/QTC 326/384 ms, PRT axes 92, 52, 42 - Radiology Data Radiology results: report reviewed, image reviewed Disposition Clinical Impression: Palpitation Disposition: ADMITTED IP TO THIS HOSP Condition: Stable Is patient prescribed a controlled substance at d/c from ED?: No Referrals: Yash Suazo DO [Primary Care Provider] - 1-2 days Time of Disposition: 13:35
[2022-07-19] MEDS ORDERED: HYDROcodone/APAP 5-325MG 1 EACH TAB PO PRN (13:50)
[2022-07-19] MEDS ORDERED: NALOXONE 0.4 MG/ML 1 ML VIAL IVP PRN (13:50)
[2022-07-19] MEDS ORDERED: ACETAMINOPHEN TAB 325 MG TAB PO PRN (13:50)
[2022-07-19] MEDS ORDERED: MELATONIN 3 MG TABLET PO PRN (13:50)
--- NOTE | 2022-07-19 14:30 | P.HPIM ---
History of Present Illness H&P Date: 07/19/22 History of Presenting Illness: Patient is a very pleasant 72-year-old female with a past medical history of CAD with 1 stent, paroxysmal atrial fibrillation with recent cardioversion on 11/11/21 on anticoagulation with Eliquis, chronic systolic heart failure with previously known EF of 35-40%, hypertension, and hypothyroidism. She presented to the emergency department with a chief complaint of palpitations feeling as though her heart was beating out of her chest accompanied by shortness of breath. Patient reports she was awoken this morning with significant palpitations and inability to catch her breath. Patient reports history of atrial fibrillation and states this felt similar to previous episodes in the past and thought she should come to the hospital for evaluation. She states palpitations had nearly subsided by the time she arrived to the hospital she continues to feel mildly short of breath which is worsened with any exertion. She reports taking Lasix for her congestive heart failure and denies missing any doses. Patient also denies noticing any swelling in her legs, cough or congestion. She denied having any fevers, chills, headache, lightheadedness, dizziness, chest pain or pressure, nausea, or experiencing any numbness/tingling/weakness/swelling in her extremities. Patient underwent full evaluation in the emergency department. EKG was completed showing sinus tachycardia with a first-degree AV block with ND interval of [address] elevation in inferior leads II, III, aVF less than 2 mm (not present on previous EKG). CBC, coags, and CMP were unremarkable. D-dimer negative at 0.36. Troponin less than 0.012. Chest x-ray negative for acute cardiopulmonary process. Patient has been admitted under our services with consultation to cardiology. Review of systems: Pertinent positives and negatives as discussed in HPI, a complete review of systems was performed and all other systems are negative. Physical exam: Vital signs reviewed and stable. General: Nontoxic, no distress and appears stated age. Derm: Skin warm and dry, normal coloration for ethnicity. Head: Atraumatic, normocephalic and symmetric. Eyes: EOMs intact, no lid lag, and anicteric sclera Mouth: no lip lesions, mucus membranes moist Cardiovascular: regular rate and rhythm with normal S1S2,systolic murmur, positive posterior tibial pulses bilaterally, and cap refill < 2 seconds. Lungs: Respirations even, regular, and unlabored on room air. Lungs CTA bilaterally, no rhonchi, no rales, no wheezing, and no accessory muscle usage. Abdominal: soft, nontender to palpation, no guarding, no appreciable organomegaly Ext: ROM intact. No gross muscle atrophy, no edema, no contractures Neuro: Speech clear, face symmetrical and CN II-XII grossly intact with no noted focal neuro deficits Psych: Alert and oriented to person, place, time, and situation. Appropriate and pleasant affect. Assessment and Plan of Care: Palpitations accompanied by shortness of breath, patient likely experienced an episode of RVR EKG changes History of CAD with stent Paroxysmal atrial fibrillation Chronic systolic heart failure with previously known EF of 35-40% Hypertension Hyperlipidemia -EKG was completed showing sinus tachycardia with a first-degree AV block with ND interval of [address] elevation in inferior leads II, III, aVF less than 2 mm (not present on previous EKG). -Cardiology consulted, appreciate further recommendations -Continuous Telemetry monitoring -Trend troponins -Cardiac diet, NPO at midnight -Continue cardiac medication regimen with Eliquis, Plavix, Lasix, losartan, and metoprolol -TSH -Echocardiogram Hypothyroidism -TSH to be obtained with reflex free T4 -Continue daily medication regimen with levothyroxine. CODE STATUS: Full code DVT prophylaxis: Eliquis Discussed with: Pt and RN Anticipated discharge date: 1-[address]: Home A total of 45 minutes was spent on the care of this complex patient more than 50% of the time was spent in counseling and care coordination. Past Medical History Past Medical History: Atrial Fibrillation, Asthma, Coronary Artery Disease (CAD), Hearing Disorder / Deafness, Hypertension, Myocardial Infarction ([place]), Osteoarthritis (OA), Thyroid Disorder Additional Past Medical History / Comment(s): Bronchitis, sinus issues, chronic cervical and back pain, DDD, hypoglycemia, hypothyroid, diverticulitis/bowel resection, bilateral tinnitis, "water retention" Last Myocardial Infarction Date:: 08/26/21 History of Any Multi-Drug Resistant Organisms: None Reported Past Surgical History: Appendectomy, Bladder Surgery, Bowel Resection, Cardiac Ablation, Cholecystectomy, Heart Catheterization, Heart Catheterization With Stent, Hernia Repair, Tubal Ligation Additional Past Surgical History / Comment(s): 08/26/21 PCI with stent, bowel r esection d/t diverticulitis, incisional hernia repair x2 with mesh, appendix burst and put hole in bladder/pt had surgery to repair the hole Past Anesthesia/Blood Transfusion Reactions: No Reported Reaction Additional Past Anesthesia/Blood Transfusion Reaction / Comment(s): hard to wake up from anesthesia Date of Last Stent Placement:: 08/26/21 Past Psychological History: Anxiety, Depression Smoking Status: Never smoker Past Alcohol Use History: None Reported Past Drug Use History: None Reported - Past Family History Mother Family Medical History: AFIB, COPD, Hypertension Father Family Medical History: Cancer Medications and Allergies Home Medications Medication Instructions Recorded Confirmed Type Apixaban [Eliquis] 5 mg PO BID 08/26/21 07/19/22 History Ergocalciferol [Vitamin D2 (1250 1,250 mcg PO TH 08/26/21 07/19/22 History Mcg = 33478 Iu)] Furosemide [Lasix] 20 mg PO DAILY PRN 08/26/21 07/19/22 History Levothyroxine Sodium 25 mcg PO DAILY 08/26/21 07/19/22 History Pantoprazole [Protonix] 40 mg PO DAILY 08/26/21 07/19/22 History Sertraline HCl [Zoloft] 50 mg PO DAILY 08/26/21 07/19/22 History Sucralfate [Carafate] 1 gm PO TID 08/26/21 07/19/22 History Clopidogrel [Plavix] 75 mg PO DAILY #30 tab 08/28/21 07/19/22 Rx Evolocumab [Repatha Sureclick] 140 mg SQ Q14D 11/10/21 07/19/22 History Losartan Potassium [Cozaar] 25 mg PO DAILY 11/10/21 07/19/22 History Magnesium Gluconate [Magonate] 500 mg PO DAILY 11/10/21 07/19/22 History Nitroglycerin Sl Tabs [Nitrostat] 0.4 mg SUBLINGUAL Q5M PRN tab 11/12/21 07/19/22 Rx Albuterol Inhaler [Ventolin Hfa 1 - 2 puff INHALATION RT-Q6H PRN 07/19/22 07/19/22 History Inhaler] Mometasone/Formoterol [Dulera 100 1 puff INHALATION RT-BID PRN 07/19/22 07/19/22 History Mcg-5 Mcg Inhaler] Potassium Gluconate 500mg 500 mg PO BID 07/19/22 07/19/22 History Metoprolol Tartrate [Lopressor] 50 mg PO BID 30 Days #60 tab 07/20/22 Rx Allergies Allergy/AdvReac Type Severity Reaction Status Date / Time amoxicillin [From Augmentin] Allergy Nausea Verified 07/19/22 14:13 ciprofloxacin [From Cipro] Allergy Rash/Hives Verified 07/19/22 14:13 clarithromycin [From Biaxin] Allergy Nausea & Verified 07/19/22 14:13 Vomiting clavulanic acid Allergy Nausea Verified 07/19/22 14:13 [From Augmentin] levofloxacin [From Levaquin] Allergy Nausea Verified 07/19/22 14:13 milk Allergy Nausea & Verified 07/19/22 14:13 Vomiting nitrofurantoin Allergy Nausea & Verified 07/19/22 14:13 [From Macrobid] Vomiting sulfamethoxazole Allergy Nausea Verified 07/19/22 14:13 [From Bactrim] trimethoprim [From Bactrim] Allergy Nausea Verified 07/19/22 14:13 [id number] Reductase AdvReac Unknown Verified 07/19/22 14:13 Inhibitor Physical Exam Osteopathic Statement: *. No significant issues noted on an osteopathic structural exam other than those noted in the History and Physical/Consult. Vitals: Vital Signs Temp Pulse Resp BP Pulse Ox 07/19/22 10:28 97.8 F 101 H 20 155/78 99 Intake and Output 07/18/22 07/19/22 07/19/22 22:59 06:59 14:59 Other: Weight 113.398 kg Results CBC & Chem 7: 07/19/22 10:50 07/19/22 10:50 Labs: Abnormal Lab Results - Last 24 Hours (Table) 07/19/22 Range/Units 10:50 Chloride 108 H (98-107) mmol/L BUN 18 H (7-17) mg/dL Assessment and Plan Assessment: Attending Note Edward Xiao NP rendered care for this patient independently, reviewed the findings and plan as documented in the note above. I did not physically speak with our examined the patient on this date.
[2022-07-19] MEDS: APIXABAN 5 MG TAB PO SCH (20:00)
[2022-07-19] MEDS ORDERED: METOPROLOL TARTRATE 25 MG TAB PO SCH (21:00)
[2022-07-19] MEDS: ONDANSETRON 4 MG/2 ML VIAL IVP PRN (23:50)
[2022-07-20] MEDS ORDERED: LEVOTHYROXINE 25 MCG TAB PO SCH (06:30)
[2022-07-20] MEDS ORDERED: METOPROLOL TARTRATE 50 MG TAB PO SCH (09:00)
[2022-07-20] MEDS ORDERED: LOSARTAN 25 MG TAB PO SCH (09:00)
[2022-07-20] MEDS ORDERED: FUROSEMIDE 20 MG TAB PO SCH (09:00)
[2022-07-20] MEDS ORDERED: SERTRALINE 50 MG TAB PO SCH (09:00)
[2022-07-20] MEDS ORDERED: CLOPIDOGREL 75 MG TAB PO SCH (09:00)
[2022-07-20] MEDS: APIXABAN 5 MG TAB PO SCH (10:08)
[2022-07-20] MEDS: ONDANSETRON 4 MG/2 ML VIAL IVP PRN (10:11)
--- NOTE | 2022-07-20 11:03 | P.CRDCN ---
History of Present Illness Consult date: 07/20/22 History of present illness: HISTORY OF PRESENT ILLNESS: This is a 71-year-old female with a past medical history significant for paroxysmal atrial fibrillation with previous ablation, hypothyroidism, hyperlipidemia with statin intolerance, hypertension, anxiety, and coronary artery disease with previous PCI of the RCA. Patient follows in the office with Dr. Silva. We have been asked to see the patient in consultation for palpitations. She gives history of having a bladder infection and started antibiotics on Sunday and after taking 2 tablets one in the morning and 1 in the evening by Sunday she was having heart palpitations along with nausea. She denies any palpitations now. * EKG reveals sinus tachycardia at 101 bpm. monitoring manager sinus tachycardia 114 bpm * Chest xray negative for acute process * Laboratory data: CBC unremarkable. D-dimer 0.36. INR 0.9. Sodium 140, potassium 4.3, chloride 108, CO2 24, BUN 18 and creatinine 0.72. Troponins negative 3. Liver function tests are normal. TSH 2.360. * Current home cardiac medications include Eliquis 5 mg twice a day, Plavix 75 mg daily, Lasix 20 mg daily as needed, losartan 25 mg daily, Lopressor 25 mg twice daily * Echocardiogram obtained in August 2021 reveals ejection fraction 50-55%, mild MR, mild TR. Repeat on 11/10/2021 revealed EF of 40-45%, mild mitral regurgitation, mild tricuspid regurgitation. * Cardiac catheterization history: August 2021 with PCI to the RCA. * CHRIS 11/11/2021 revealed no aortic stenosis or regurgitation. Mild mitral regurg itation. No PFO. EF 35-40% REVIEW OF SYSTEMS: At the time of my exam: CONSTITUTIONAL: Denies fever or chills. HEENT: Denies blurred vision, vision changes, or eye pain. Denies hemoptysis CARDIOVASCULAR: Denies chest pain. Denies orthopnea. Denies PND. Denies palp itations RESPIRATORY: Denies shortness of breath. GASTROINTESTINAL: Denies abdominal pain. Denies nausea or vomiting. HEMATOLOGIC: Denies bleeding disorders. GENITOURINARY: Denies any blood in urine. SKIN: Denies pruitis. Denies rash. PHYSICAL EXAM: VITAL SIGNS: Reviewed. GENERAL: Well-developed in no acute distress. HEENT: Head is normocephalic. Pupils are equal, round. Sclerae anicteric. Mucous membranes of the mouth are moist. Neck supple. No JVD or thyromegaly LUNGS: Respirations even and unlabored. Lungs essentially clear to auscultation bilaterally. HEART: Tachycardic. Regular rate and rhythm. S1 and S2 heard. ABDOMEN: Soft. Nondistended. Nontender. EXTREMITIES: Normal range of motion. No clubbing or cyanosis. Peripheral pulses intact. No lower extremity edema NEUROLOGIC: Awake and alert. Oriented x 3. ASSESSMENT: Palpitations Paroxysmal atrial fibrillation with previous ablation Coronary artery disease with previous PCI Hyperlipidemia with statin intolerance Hypertension Anxiety PLAN: An acute coronary event has been ruled out Increase metoprolol tartrate to 50 mg twice a day Continue telemetry monitoring Resume home cardiac medications Obtain 2-D echocardiogram and Doppler study to assess cardiac structure and function Further recommendations pending patient's course Nurse practitioner note has been reviewed by physician. Signing provider agrees with the documented findings, assessment, and plan of care. Past Medical History Past Medical History: Atrial Fibrillation, Asthma, Coronary Artery Disease (CAD), Hearing Disorder / Deafness, Hypertension, Myocardial Infarction ([place]), Osteoarthritis (OA), Thyroid Disorder Additional Past Medical History / Comment(s): Bronchitis, sinus issues, chronic cervical and back pain, DDD, hypoglycemia, hypothyroid, diverticulitis/bowel resection, bilateral tinnitis, "water retention" Last Myocardial Infarction Date:: 08/26/21 History of Any Multi-Drug Resistant Organisms: None Reported Past Surgical History: Appendectomy, Bladder Surgery, Bowel Resection, Cardiac Ablation, Cholecystectomy, Heart Catheterization, Heart Catheterization With Stent, Hernia Repair, Tubal Ligation Additional Past Surgical History / Comment(s): 08/26/21 PCI with stent, bowel re section d/t diverticulitis, incisional hernia repair x2 with mesh, appendix burst and put hole in bladder/pt had surgery to repair the hole Past Anesthesia/Blood Transfusion Reactions: No Reported Reaction Additional Past Anesthesia/Blood Transfusion Reaction / Comment(s): hard to wake up from anesthesia Date of Last Stent Placement:: 08/26/21 Past Psychological History: Anxiety, Depression Additional Psychological History / Comment(s): Pt resides with her spouse. She is independent. Smoking Status: Never smoker Past Alcohol Use History: None Reported Past Drug Use History: None Reported - Past Family History Mother Family Medical History: AFIB, COPD, Hypertension Father Family Medical History: Cancer Medications and Allergies Home Medications Medication Instructions Recorded Confirmed Type Apixaban [Eliquis] 5 mg PO BID 08/26/21 07/19/22 History Ergocalciferol [Vitamin D2 (1250 1,250 mcg PO TH 08/26/21 07/19/22 History Mcg = 26442 Iu)] Furosemide [Lasix] 20 mg PO DAILY PRN 08/26/21 07/19/22 History Levothyroxine Sodium 25 mcg PO DAILY 08/26/21 07/19/22 History Pantoprazole [Protonix] 40 mg PO DAILY 08/26/21 07/19/22 History Sertraline HCl [Zoloft] 50 mg PO DAILY 08/26/21 07/19/22 History Sucralfate [Carafate] 1 gm PO TID 08/26/21 07/19/22 History Clopidogrel [Plavix] 75 mg PO DAILY #30 tab 08/28/21 07/19/22 Rx Evolocumab [Repatha Sureclick] 140 mg SQ Q14D 11/10/21 07/19/22 History Losartan Potassium [Cozaar] 25 mg PO DAILY 11/10/21 07/19/22 History Magnesium Gluconate [Magonate] 500 mg PO DAILY 11/10/21 07/19/22 History Metoprolol Tartrate [Lopressor] 25 mg PO BID #60 tablet 11/12/21 07/19/22 Rx Nitroglycerin Sl Tabs [Nitrostat] 0.4 mg SUBLINGUAL Q5M PRN tab 11/12/21 07/19/22 Rx Albuterol Inhaler [Ventolin Hfa 1 - 2 puff INHALATION RT-Q6H PRN 07/19/22 07/19/22 History Inhaler] Mometasone/Formoterol [Dulera 100 1 puff INHALATION RT-BID PRN 07/19/22 07/19/22 History Mcg-5 Mcg Inhaler] Potassium Gluconate 500mg 500 mg PO BID 07/19/22 07/19/22 History Allergies Allergy/AdvReac Type Severity Reaction Status Date / Time amoxicillin [From Augmentin] Allergy Nausea Verified 07/19/22 14:13 ciprofloxacin [From Cipro] Allergy Rash/Hives Verified 07/19/22 14:13 clarithromycin [From Biaxin] Allergy Nausea & Verified 07/19/22 14:13 Vomiting clavulanic acid Allergy Nausea Verified 07/19/22 14:13 [From Augmentin] levofloxacin [From Levaquin] Allergy Nausea Verified 07/19/22 14:13 milk Allergy Nausea & Verified 07/19/22 14:13 Vomiting nitrofurantoin Allergy Nausea & Verified 07/19/22 14:13 [From Macrobid] Vomiting sulfamethoxazole Allergy Nausea Verified 07/19/22 14:13 [From Bactrim] trimethoprim [From Bactrim] Allergy Nausea Verified 07/19/22 14:13 [id number] Reductase AdvReac Unknown Verified 07/19/22 14:13 Inhibitor Physical Exam Vitals: Vital Signs Temp Pulse Pulse Resp BP BP Pulse Ox 07/20/22 07:00 97.9 F 110 H 17 113/78 95 07/20/22 02:24 98.0 F 109 H 18 122/80 97 07/20/22 00:58 16 07/19/22 23:34 97.5 F L 112 H 17 128/82 96 07/19/22 20:00 110 H 18 07/19/22 18:48 108 H 18 149/96 97 07/19/22 16:00 106 H 17 141/90 98 07/19/22 10:28 97.8 F 101 H 20 155/78 99 Intake and Output 07/19/22 07/20/22 07/20/22 22:59 06:59 14:59 Other: # Voids 1 1 Weight 113.398 kg Results 07/19/22 10:50 07/19/22 10:50 Cardiac Enzymes 07/19/22 07/19/22 07/19/22 Range/Units 10:50 10:50 15:24 AST 24 (14-36) U/L Troponin I <0.012 <0.012 (0.000-0.034) ng/mL 07/19/22 Range/Units 20:37 AST (14-36) U/L Troponin I <0.012 (0.000-0.034) ng/mL Coagulation 07/19/22 Range/Units 10:50 PT 10.1 (9.0-12.0) sec APTT 26.6 (22.0-30.0) sec CBC 07/19/22 Range/Units 10:50 WBC 6.3 (3.8-10.6) k/uL RBC 4.02 (3.80-5.40) m/uL Hgb 12.8 (11.4-16.0) gm/dL Hct 37.7 (34.0-46.0) % Plt Count 285 (150-450) k/uL Comprehensive Metabolic Panel 07/19/22 Range/Units 10:50 Sodium 140 (137-145) mmol/L Potassium 4.3 (3.5-5.1) mmol/L Chloride 108 H (98-107) mmol/L Carbon Dioxide 24 (22-30) mmol/L BUN 18 H (7-17) mg/dL Creatinine 0.72 (0.52-1.04) mg/dL Glucose 98 (74-99) mg/dL Calcium 8.8 (8.4-10.2) mg/dL AST 24 (14-36) U/L ALT 18 (4-34) U/L Alkaline Phosphatase 77 (38-126) U/L Total Protein 6.5 (6.3-8.2) g/dL Albumin 3.8 (3.5-5.0) g/dL Current Medications Generic Name Dose Route Start Last Admin Trade Name Freq PRN Reason Stop Dose Admin Acetaminophen 650 mg 07/19/22 13:50 07/19/22 19:59 Acetaminophen Tab 325 Mg Tab PO 650 mg Q6HR PRN Administration Mild Pain or Fever > 100.5 Hydrocodone Bitart/Acetaminophen 1 each 07/19/22 13:50 Hydrocodone/Apap 5-325mg 1 Each Tab PO Q4HR PRN Moderate to Severe Pain (4-10) Apixaban 5 mg 07/19/22 21:00 07/19/22 20:00 Apixaban 5 Mg Tab PO Not Given BID [facility] Protocol Clopidogrel Bisulfate 75 mg 07/20/22 09:00 Clopidogrel 75 Mg Tab PO DAILY KOTA Furosemide 20 mg 07/20/22 09:00 Furosemide 20 Mg Tab PO DAILY KOTA Levothyroxine Sodium 25 mcg 07/20/22 06:30 07/20/22 06:37 Levothyroxine 25 Mcg Tab PO 25 mcg 0630 KOTA Administration Losartan Potassium 25 mg 07/20/22 09:00 Losartan 25 Mg Tab PO DAILY KOTA Melatonin 3 mg 07/19/22 13:50 Melatonin 3 Mg Tablet PO HS PRN Insomnia Metoprolol Tartrate 25 mg 07/19/22 21:00 07/19/22 20:00 Metoprolol Tartrate 25 Mg Tab PO Not Given BID KOTA Naloxone HCl 0.2 mg 07/19/22 13:50 Naloxone 0.4 Mg/Ml 1 Ml Vial IVP Q2M PRN Opioid Reversal Ondansetron HCl 4 mg 07/19/22 13:50 07/19/22 23:50 Ondansetron 4 Mg/2 Ml Vial IVP 4 mg Q8HR PRN Administration Nausea And Vomiting Sertraline HCl 50 mg 07/20/22 09:00 Sertraline 50 Mg Tab PO DAILY KOTA Intake and Output 07/19/22 07/20/22 07/20/22 22:59 06:59 14:59 Other: # Voids 1 1 Weight 113.398 kg 07/19/22 10:50 07/19/22 10:50
[2022-07-20 11:28] LABS: Appearance,Urine Cloudy (Clear); Bacteria,Urine Rare /hpf; Bilirubin,Urine Negative (Negative); Blood,Urine Negative (Negative); Color,Urine Yellow; Glucose,Urine (UA) Negative (Negative); Ketones,Urine Negative (Negative); Leukocyte Esterase,Urine Negative (Negative); Mucus,Urine Rare /hpf; Nitrite,Urine Negative (Negative); Protein,Urine Trace (Negative); RBC,Urine <1 /hpf (0-5); Specific Gravity,Urine 1.021 (1.001-1.035); Squamous Epithelial Cell,Urine 8 /hpf (0-4); Urobilinogen,Urine <2.0 mg/dL (<2.0); WBC,Urine 1 /hpf (0-5)
[2022-07-20 13:30] VITALS: BP 113/79; PULSE 113; RESP 12; TEMP 98.1
--- NOTE | 2022-07-20 16:28 | P.DS ---
Providers Date of admission: 07/19/22 14:38 Expected date of discharge: 07/20/22 Attending physician: Janet Ansari, Consults: 07/19/22 13:50 Consult Physician Routine Consulting Provider: [facility] Consult Reason/Comments: Palpitations accompanied by shortness of breath, history of A. fib Do you want consulting provider notified?: Yes Primary care physician: [place] Hospital Course: Discharge Diagnosis: Palpitations accompanied by shortness of breath. Patient found to be in sinus tachycardia. Metoprolol was increased to 50 mg twice daily. Troponins were trended and all were negative at less than 0.0123 draws. Patient has full resolution of palpitations and shortness of breath. She remains tachycardic with heart rate 110s, however only received 1 dose of increased metoprolol. Patient instructed to monitor blood pressure and heart rate at home twice daily and to bring with her to next doctor's appointment as further adjustments may be needed to medication regimen. EKG changes, EKG was completed showing sinus tachycardia with a first-degree AV block with MD interval of [address] elevation in inferior leads II, III, aVF less than 2 mm (not present on previous EKG). Patient denied having any chest pain. Troponins were trended overnight all negative at less than 0.012 3 draws. Cardiology evaluated and acute coronary event was ruled out. History of CAD with stent. Continue cardiac medication regimen with Eliquis, Plavix, Lasix, losartan, and metoprolol Paroxysmal atrial fibrillation. Continue daily medication regimen with Eliquis and metoprolol. Chronic systolic heart failure with previously known EF of 35-40%. Hypertension, Monitor vital signs and continue antihypertensive medication regimen with losartan and metoprolol. Hyperlipidemia. Continue heart healthy diet. Hypothyroidism. TSH normal findings of 2.360. Patient to continue daily medication regimen with level thyroxine. Hospital Course: Patient is a very pleasant 72-year-old female with a past medical history of CAD with 1 stent, paroxysmal atrial fibrillation with recent cardioversion on 11/11/21 on anticoagulation with Eliquis, chronic systolic heart failure with previously known EF of 35-40%, hypertension, and hypothyroidism. She presented to the emergency department with a chief complaint of palpitations feeling as though her heart was beating out of her chest accompanied by shortness of breath. Patient reports she was awoken this morning with significant palpitations and inability to catch her breath. Patient reports history of atrial fibrillation and states this felt similar to previous episodes in the past and thought she should come to the hospital for evaluation. She states palpitations had nearly subsided by the time she arrived to the hospital she continues to feel mildly short of breath which is worsened with any exertion. She reports taking Lasix for her congestive heart failure and denies missing any doses. Patient also denies noticing any swelling in her legs, cough or congestion. She denied having any fevers, chills, headache, lightheadedness, dizziness, chest pain or pressure, nausea, or experiencing any numbness/tingling/weakness/swelling in her extremities. Patient underwent full evaluation in the emergency department. EKG was completed showing sinus tachycardia with a first-degree AV block with MD interval of [address] elevation in inferior leads II, III, aVF less than 2 mm (not present on previous EKG). CBC, coags, and CMP were unremarkable. D-dimer negative at 0.36. Troponin less than 0.012. Chest x-ray negative for acute cardiopulmonary process. Patient was admitted under our services with consultation to cardiology. Her metoprolol was increased to 50 mg twice daily for treatment of her sinus tachycardia. Patient monitored overnight and remained free from any further complaints of palpitations and reports resolution of previously reported shortness of breath. Troponins were trended overnight all negative at less than 0.0123 draws. TSH also normal findings at 2.360. Urinalysis completed per patient's request after recent diagnosis of UTI and completion of antibiotic doxycycline. Urinalysis was negative for any signs of blood or infection. The patient was evaluated by cardiology and an acute coronary event has been ruled out. Echocardiogram was completed and currently pending results. Patient requesting discharge or to sign out AMA as she states she cannot wait for echocardiogram results and needs to get home. Patient does remain tachycardic with heart rate 110s, however she only received 1 dose of increased metoprolol dose. Patient instructed that she will need to monitor blood pressure and heart rate at home twice daily and to bring with her to next doctor's appointment as further adjustments may be needed to medication regimen. Patient was discharged per her request as she is medically stable at this time. Patient to follow-up with art teacher to review and discuss echocardiogram results and to follow up outpatient with her PCP. Prescriptions were sent for metoprolol 50 mg twice daily. Patient medically stable at this time. Physical exam: Vital signs reviewed and stable. General: Nontoxic, no distress and appears stated age. Derm: Skin warm and dry, normal coloration for ethnicity. Head: Atraumatic, normocephalic and symmetric. Eyes: EOMs intact, no lid lag, and anicteric sclera Mouth: no lip lesions, mucus membranes moist Cardiovascular: regular rate and rhythm with normal S1S2,systolic murmur, positive posterior tibial pulses bilaterally, and cap refill < 2 seconds. Lungs: Respirations even, regular, and unlabored on room air. Lungs CTA bilaterally, no rhonchi, no rales, no wheezing, and no accessory muscle usage. Abdominal: soft, nontender to palpation, no guarding, no appreciable organomegaly Ext: ROM intact. No gross muscle atrophy, no edema, no contractures Neuro: Speech clear, face symmetrical and CN II-XII grossly intact with no noted focal neuro deficits Psych: Alert and oriented to person, place, time, and situation. Appropriate and pleasant affect. A total of 34 minutes of time were spent preparing this complex discharge summary. Pt was discharged on 07/20/22 at 4:35 PM. Edward Xiao NP rendered care for this patient independently, reviewed the findings and plan as documented in the note above. I did not physically speak with or examine the patient on this date. Patient Condition at Discharge: Stable Plan - Discharge Summary New Discharge Prescriptions: New Metoprolol Tartrate [Lopressor] 50 mg PO BID 30 Days #60 tab Continue Ergocalciferol [Vitamin D2 (1250 Mcg = 09818 Iu)] 1,250 mcg PO TH Apixaban [Eliquis] 5 mg PO BID Clopidogrel [Plavix] 75 mg PO DAILY #30 tab Evolocumab [Repatha Sureclick] 140 mg SQ Q14D Nitroglycerin Sl Tabs [Nitrostat] 0.4 mg SUBLINGUAL Q5M PRN tab PRN Reason: Chest Pain Potassium Gluconate 500mg 500 mg PO BID Albuterol Inhaler [Ventolin Hfa Inhaler] 1 - 2 puff INHALATION RT-Q6H PRN PRN Reason: Shortness Of Breath Mometasone/Formoterol [Dulera 100 Mcg-5 Mcg Inhaler] 1 puff INHALATION RT-BID PRN PRN Reason: Shortness Of Breath Sucralfate [Carafate] 1 gm PO TID Pantoprazole [Protonix] 40 mg PO DAILY Sertraline HCl [Zoloft] 50 mg PO DAILY Levothyroxine Sodium 25 mcg PO DAILY Furosemide [Lasix] 20 mg PO DAILY PRN PRN Reason: Edema Magnesium Gluconate [Magonate] 500 mg PO DAILY Losartan Potassium [Cozaar] 25 mg PO DAILY Discontinued Metoprolol Tartrate [Lopressor] 25 mg PO BID #60 tablet Discharge Medication List Apixaban [Eliquis] 5 mg PO BID 08/26/21 [History] Ergocalciferol [Vitamin D2 (1250 Mcg = 79378 Iu)] 1,250 mcg PO TH 08/26/21 [History] Furosemide [Lasix] 20 mg PO DAILY PRN 08/26/21 [History] Levothyroxine Sodium 25 mcg PO DAILY 08/26/21 [History] Pantoprazole [Protonix] 40 mg PO DAILY 08/26/21 [History] Sertraline HCl [Zoloft] 50 mg PO DAILY 08/26/21 [History] Sucralfate [Carafate] 1 gm PO TID 08/26/21 [History] Clopidogrel [Plavix] 75 mg PO DAILY #30 tab 08/28/21 [Rx] Evolocumab [Repatha Sureclick] 140 mg SQ Q14D 11/10/21 [History] Losartan Potassium [Cozaar] 25 mg PO DAILY 11/10/21 [History] Magnesium Gluconate [Magonate] 500 mg PO DAILY 11/10/21 [History] Nitroglycerin Sl Tabs [Nitrostat] 0.4 mg SUBLINGUAL Q5M PRN tab 11/12/21 [Rx] Albuterol Inhaler [Ventolin Hfa Inhaler] 1 - 2 puff INHALATION RT-Q6H PRN 07/19/22 [History] Mometasone/Formoterol [Dulera 100 Mcg-5 Mcg Inhaler] 1 puff INHALATION RT-BID PRN 07/19/22 [History] Potassium Gluconate 500mg 500 mg PO BID 07/19/22 [History] Metoprolol Tartrate [Lopressor] 50 mg PO BID 30 Days #60 tab 07/20/22 [Rx] Follow up Appointment(s)/Referral(s): Yash Suazo DO [Primary Care Provider] - 1-2 days James Rodriguez MD [STAFF PHYSICIAN] - 08/04/22 4:00 pm Patient Instructions/Handouts: Heart Palpitations (DC), Tachycardia (GEN) Activity/Diet/Wound Care/Special Instructions: Activity: As tolerated. Take breaks as needed. Diet: Heart healthy and carb consistent diet. Avoid salts, or foods with hidden salts such as canned or boxed foods and frozen dinners. Extra salt makes your heart work harder and traps the fluid in your body for longer. Special Instructions: Take all of your medications as directed and remember to keep all of your doctor's appointments and follow-up as needed. Per your request, you are being discharged home prior to the results of your echocardiogram. It is very important that you follow up with art teacher-Dr. Rodriguez as discussed to review and discuss these results. Urinalysis was reviewed and negative for infection. It is important to monitor blood pressure and heart rate at home twice daily, document these results and a daily log and be sure to bring with her to next doctor's appointment as further adjustments may be needed to medication regimen. Thank you for allowing us to participate in your care, it was truly a pleasure having you for our patient!!! Discharge Disposition: HOME SELF-CARE
--- NOTE | 2022-07-20 17:44 | CA ---
Transthoracic Echo Report Name: Evelia Dhaliwal Age: 72 Gender: F : 1950 Exam Date: 07/20/2022 13:18 Exam Location: [facility] Ht (in): 65 Wt (lb): 250 Ordering Physician: James Rodriguez MD ([id number]) Attending/Referring Phys: Michael GANDHI Disposition Clerk Lexy Guevara RDCS Procedure CPT: Indications: palpitations Cardiac Hx: Technical Quality: Contrast 1: Total Dose (mL): Contrast 2: Total Dose (mL): MEASUREMENTS (Male / Female) Normal Values 2D ECHO LV Diastolic Diameter PLAX 5.0 cm 4.2 - 5.9 / 3.9 - 5.3 cm LV Systolic Diameter PLAX 4.9 cm IVS Diastolic Thickness 1.2 cm 0.6 - 1.0 / 0.6 - 0.9 cm LVPW Diastolic Thickness 1.7 cm 0.6 - 1.0 / 0.6 - 0.9 cm LV Relative Wall Thickness 0.6 RV Internal Dim ED PLAX 3.0 cm LA Systolic Diameter LX 2.9 cm 3.0 - 4.0 / 2.7 - 3.8 cm LA Volume 70.8 cm??? 18 - 58 / 22 - 52 cm??? M-MODE Aortic Root Diameter MM 2.7 cm LA Systolic Diameter MM 3.4 cm LA Ao Ratio MM 1.2 MV E Point Septal Separation 0.7 cm AV Cusp Separation MM 1.3 cm DOPPLER MV E' Velocity 8.1 cm/s TR Peak Velocity 203.4 cm/s TR Peak Gradient 16.5 mmHg Right Ventricular Systolic Press 21.5 mmHg FINDINGS Left Ventricle Mildly increased septal wall thickness. Anterseptal hypokinesisleft ventricular ejection fraction is estimated at 40 %. Right Ventricle Normal right ventricular size and function. Right Atrium Normal right atrial size. Left Atrium Moderately increased left atrial volume. Mildly increased left atrial area. Mitral Valve Structurally normal mitral valve. Mild mitral regurgitation. Aortic Valve Trileaflet aortic valve. Aortic valve sclerosis. Tricuspid Valve Structurally normal tricuspid valve. Mild tricuspid regurgitation. Pulmonic Valve Structurally normal pulmonic valve. Pericardium Normal pericardium. Aorta Normal size aortic root and proximal ascending aorta. CONCLUSIONS Moderate LV systolic dysfunction with anteroseptal hypokinesis Left atrial enlargement Mild mitral regurgitation Previewed by: Dr. James Rodriguez MD (Electronically Signed) Final Date: 20 July 2022 17:43
== END 2022-07-20 17:07 | disposition home or self-care (01) ==
LOC: EC 10:26 → 6NMEDSUR 14:38
PROVIDERS: ADMIT Internal Medicine; ATTEND Internal Medicine
DX: R00.2 Palpitations (principal); R00.0 Tachycardia, unspecified; I44.0 Atrioventricular block, first degree; N39.0 Urinary tract infection, site not specified; I11.0 Hypertensive heart disease with heart failure; I50.22 Chronic systolic (congestive) heart failure; J44.9 Chronic obstructive pulmonary disease, unspecified; I48.0 Paroxysmal atrial fibrillation; I25.10 Atherosclerotic heart disease of native coronary artery without angina pectoris; E03.9 Hypothyroidism, unspecified; M19.90 Unspecified osteoarthritis, unspecified site; R32 Unspecified urinary incontinence; I25.2 Old myocardial infarction; E78.5 Hyperlipidemia, unspecified; I08.1 Rheumatic disorders of both mitral and tricuspid valves; H91.90 Unspecified hearing loss, unspecified ear; G89.29 Other chronic pain; M54.2 Cervicalgia; M54.50 Low back pain, unspecified; F41.9 Anxiety disorder, unspecified; F32.A Depression, unspecified; Z79.01 Long term (current) use of anticoagulants; Z79.82 Long term (current) use of aspirin; Z79.890 Hormone replacement therapy; Z79.02 Long term (current) use of antithrombotics/antiplatelets; Z79.899 Other long term (current) drug therapy; Z88.0 Allergy status to penicillin; Z88.1 Allergy status to other antibiotic agents; Z88.2 Allergy status to sulfonamides; Z88.8 Allergy status to other drugs, medicaments and biological substances; Z91.011 Allergy to milk products; Z95.5 Presence of coronary angioplasty implant and graft; Z87.19 Personal history of other diseases of the digestive system; Z90.49 Acquired absence of other specified parts of digestive tract; Z98.51 Tubal ligation status; Z98.890 Other specified postprocedural states; Z82.49 Family history of ischemic heart disease and other diseases of the circulatory system; Z82.5 Family history of asthma and other chronic lower respiratory diseases; Z80.9 Family history of malignant neoplasm, unspecified
CPT/HCPCS: 96376; 96374; 99285; 36415; 93005; 93306; 85379; 80053; 84443; 84484; 85025; 85610; 85730; 81001; 71046; G0378 ×2; J2405 ×2

== ENCOUNTER 2022-08-11 10:53 | Day surgery (SDC) | payer MEDICARE ==
[2022-08-08 14:58] VITALS: BMI 41.5
[~2022-08-11 10:53] MED LIST: SODIUM CHLORIDE 0.9% 1,000 ML IV SCH
[2022-08-11 11:30] VITALS: RESP 18; TEMP 98.1
[2022-08-11] MEDS ORDERED: PROPOFOL 10 MG/ML 20 ML VIAL IV ONE (11:57)
[2022-08-11] MEDS ORDERED: LIDOCAINE 2% INJ 20 MG/ML (2 ML VIAL) ONE (11:57)
--- NOTE | 2022-08-11 12:26 | P.PCN ---
Description of Procedure: Procedure performed: Synchronized cardioversion Moderate conscious sedation: Moderate conscious sedation was supplied by anesthesia, see separate report Complications: none Indications: Symptomatic atrial flutter History: Patient is pleasant 72-year-old female with history of atrial flutter status post previous CHRIS cardioversion. She has been significantly symptomatic with EKG showing atrial flutter with 2-1 block at a rate of 115. She has not missed any of her doses of anticoagulation within the last 30 days. PROCEDURE: After the risks, benefits and alternatives of the above mentioned procedure was explained in detail with the patient, informed consent was obtained. Patient was brought to the lab in a fasting state. Patient was given sedation by anesthesia. Synchronized cardioversion was performed with 200 J 1 with a resultant sinus rhythm. Patient tolerated the procedure well. Patient was transferred to the post procedure area in stable and satisfactory condition.
[2022-08-11 14:02] VITALS: BP 132/62
[2022-08-11 14:03] VITALS: PULSE 72
== END 2022-08-11 14:09 | disposition home or self-care (01) ==
LOC: CATHCVL 10:53
PROVIDERS: ATTEND Internal Medicine
DX: I48.92 Unspecified atrial flutter (principal); I10 Essential (primary) hypertension; E78.5 Hyperlipidemia, unspecified; I25.10 Atherosclerotic heart disease of native coronary artery without angina pectoris; Z79.899 Other long term (current) drug therapy
CPT/HCPCS: 92960; J2704; J2001

== ENCOUNTER 2022-08-17 11:28 | Emergency (ER) | payer MEDICARE ==
[2022-08-17] MEDS ORDERED: IPRATROPIUM-ALBUTEROL 3 ML NEB INHALATION STA (12:41)
[2022-08-17 12:47] LABS: Basophils % (A) 0 %; Eosinophils # (A) 0.2 k/uL (0-0.7); Eosinophils % (A) 2 %; HCT 37.1 % (34.0-46.0); HGB 12.3 gm/dL (11.4-16.0); Lymphocytes # (A) 1.3 k/uL (1.0-4.8); Lymphocytes % (A) 17 %; MCH 30.4 pg (25.0-35.0); MCHC 33.2 g/dL (31.0-37.0); MCV 91.6 fL (80.0-100.0); Monocytes # (A) 0.5 k/uL (0-1.0); Monocytes % (A) 6 %; Neutrophils # (A) 5.5 k/uL (1.3-7.7); Neutrophils % (A) 72 %; Platelet Count 293 k/uL (150-450); RBC 4.05 m/uL (3.80-5.40); RDW 13.5 % (11.5-15.5); WBC 7.6 k/uL (3.8-10.6)
--- NOTE | 2022-08-17 12:56 | ED ---
SOB HPI - General Chief Complaint: Shortness of Breath Stated Complaint: SOB Time Seen by Provider: 08/17/22 12:21 Source: patient, RN notes reviewed Mode of arrival: ambulatory Limitations: no limitations - History of Present Illness Initial Comments: 72-year-old female history of atrial fibrillation with a cardioversion done 6 days ago who states she's been short of breath since that event. She does have a history of asthma she has had a cough with some L phlegm intermittently with clear phlegm. No fevers chills or sweats no overt chest pain she has tried her inhaler at home without much relief. She comes for evaluation. No other current complaints or modifying factors MD Complaint: shortness of breath, cough - Related Data Home Medications Medication Instructions Recorded Confirmed Apixaban [Eliquis] 5 mg PO BID 08/26/21 08/11/22 Ergocalciferol [Vitamin D2 (1250 1,250 mcg PO TH 08/26/21 08/11/22 Mcg = [id number] Iu)] Furosemide [Lasix] 20 mg PO DAILY PRN 08/26/21 08/11/22 Levothyroxine Sodium 25 mcg PO DAILY 08/26/21 08/11/22 Pantoprazole [Protonix] 40 mg PO DAILY 08/26/21 08/11/22 Sertraline HCl [Zoloft] 50 mg PO DAILY 08/26/21 08/11/22 Sucralfate [Carafate] 1 gm PO TID 08/26/21 08/11/22 Evolocumab [Repatha Sureclick] 140 mg SQ Q14D 11/10/21 08/11/22 Losartan Potassium [Cozaar] 25 mg PO DAILY 11/10/21 08/11/22 Magnesium Gluconate [Magonate] 500 mg PO DAILY 11/10/21 08/11/22 Albuterol Inhaler [Ventolin Hfa 1 - 2 puff INHALATION RT-Q6H PRN 07/19/22 08/11/22 Inhaler] Mometasone/Formoterol [Dulera 100 1 puff INHALATION RT-BID PRN 07/19/22 08/11/22 Mcg-5 Mcg Inhaler] Potassium Gluconate 500mg 500 mg PO BID 07/19/22 08/11/22 Previous Rx's Medication Instructions Recorded Nitroglycerin Sl Tabs [Nitrostat] 0.4 mg SUBLINGUAL Q5M PRN tab 11/12/21 Metoprolol Tartrate [Lopressor] 50 mg PO BID 30 Days #60 tab 07/20/22 Cephalexin [Keflex] 500 mg PO Q6HR 1 Days #40 cap 08/17/22 Ipratropium/Albuter 20-100Mcg 1 puff INHALATION QID PRN #1 gm 08/17/22 [Combivent Respimat 20-100Mcg Inhaler] predniSONE [Deltasone] 20 mg PO BID #10 tab 08/17/22 Allergies Allergy/AdvReac Type Severity Reaction Status Date / Time amoxicillin [From Augmentin] Allergy Nausea Verified 08/17/22 12:09 ciprofloxacin [From Cipro] Allergy Rash/Hives Verified 08/17/22 12:09 clarithromycin [From Biaxin] Allergy Nausea & Verified 08/17/22 12:09 Vomiting clavulanic acid Allergy Nausea Verified 08/17/22 12:09 [From Augmentin] levofloxacin [From Levaquin] Allergy Nausea Verified 08/17/22 12:09 milk Allergy Nausea & Verified 08/17/22 12:09 Vomiting nitrofurantoin Allergy Nausea & Verified 08/17/22 12:09 [From Macrobid] Vomiting sulfamethoxazole Allergy Nausea Verified 08/17/22 12:09 [From Bactrim] trimethoprim [From Bactrim] Allergy Nausea Verified 08/17/22 12:09 [id number] Reductase AdvReac Unknown Verified 08/17/22 12:09 Inhibitor Review of Systems ROS Statement: Those systems with pertinent positive or pertinent negative responses have been documented in the HPI. ROS Other: All systems not noted in ROS Statement are negative. Past Medical History Past Medical History: Atrial Fibrillation, Asthma, Coronary Artery Disease (CAD), Hearing Disorder / Deafness, Hypertension, Myocardial Infarction ([place]), Osteoarthritis (OA), Thyroid Disorder Additional Past Medical History / Comment(s): Bronchitis, sinus issues, chronic cervical and back pain, DDD, hypoglycemia, hypothyroid, diverticulitis/bowel resection, bilateral tinnitis, "water retention" Last Myocardial Infarction Date:: 08/26/21 History of Any Multi-Drug Resistant Organisms: None Reported Past Surgical History: Appendectomy, Bladder Surgery, Bowel Resection, Cardiac Ablation, Cholecystectomy, Heart Catheterization, Heart Catheterization With Stent, Hernia Repair, Tubal Ligation Additional Past Surgical History / Comment(s): 08/26/21 PCI with stent, bowel resection d/t diverticulitis, incisional hernia repair x2 with mesh, appendix burst and put hole in bladder/pt had surgery to repair the hole Past Anesthesia/Blood Transfusion Reactions: No Reported Reaction Additional Past Anesthesia/Blood Transfusion Reaction / Comment(s): hard to wake up from anesthesia Date of Last Stent Placement:: 08/26/21 Past Psychological History: Anxiety, Depression Smoking Status: Never smoker Past Alcohol Use History: None Reported Past Drug Use History: None Reported - Past Family History Mother Family Medical History: AFIB, COPD, Hypertension Father Family Medical History: Cancer General Exam - General Exam Comments Initial Comments: This is a well-developed well-nourished awake alert oriented 4 female Limitations: no limitations General appearance: alert, in no apparent distress Head exam: Present: atraumatic, normocephalic, normal inspection Eye exam: Present: normal appearance, PERRL, EOMI. Absent: scleral icterus, conjunctival injection, periorbital swelling ENT exam: Present: normal exam, mucous membranes moist Neck exam: Present: normal inspection, full ROM, other (Bruits). Absent: tenderness, meningismus, lymphadenopathy Respiratory exam: Present: decreased breath sounds. Absent: respiratory distress, wheezes, rales, rhonchi, stridor Cardiovascular Exam: Present: normal rhythm, bradycardia, normal heart sounds. Absent: systolic murmur, diastolic murmur, rubs, gallop, clicks GI/Abdominal exam: Present: soft, normal bowel sounds. Absent: distended, tenderness, guarding, rebound, rigid Extremities exam: Present: normal inspection, full ROM, normal capillary refill. Absent: tenderness, pedal edema, joint swelling, calf tenderness Back exam: Present: normal inspection Neurological exam: Present: alert, oriented X3, CN II-XII intact Psychiatric exam: Present: normal affect, normal mood Skin exam: Present: warm, dry, intact, normal color. Absent: rash Course Vital Signs 08/17/22 08/17/22 08/17/22 12:06 12:23 13:41 Temperature 96.8 F L Pulse Rate 58 L 58 L Respiratory 24 Rate Blood Pressure 150/8 O2 Sat by Pulse 98 97 Oximetry 08/17/22 13:51 Temperature Pulse Rate 58 L Respiratory Rate Blood Pressure O2 Sat by Pulse Oximetry Medical Decision Making - Medical Decision Making I did discuss findings with the patient and her patient's have evidence of bronchospasm with right lower lobe pneumonia. Patient did receive a nebul izer treatment with marked improvement in her aeration afterwards. Saturations remained 99 Her percent on room air. Patient will be discharged home on antibiotics she has multiple ALLERGIES patient will be given Rocephin in the emergency department and placed on Keflex for home. Additionally she'll be given a DuoNeb inhaler. Was pt. sent in by a medical professional or institution (, [facility], AIR MOTOR REPAIRER, urgent care, hospital, or group home...) When possible be specific @ -[No] Did you speak to anyone other than the patient for history (EMS, parent, family, police, friend...)? What history was obtained from this source @ -[No] Did you review nursing and triage notes (agree or disagree)? Why? @ Yes and agree -[I reviewed and agree with nursing and triage notes] Were old charts reviewed (outside hosp., previous admission, EMS record, old EKG, old radiological studies, urgent care reports/EKG's, group home records)? Report findings @ -[No old charts were reviewed] Differential Diagnosis (chest pain, altered mental status, abdominal pain women, abdominal pain men, vaginal bleeding, weakness, fever, dyspnea, syncope, headache, dizziness, GI bleed, back pain, seizure, CVA, palpatations, mental health)? @ Pneumonia, CHF, asthma exacerbation, cardiac etiology-] EKG interpreted by me (3pts min.). @ Yes-[As above] X-rays interpreted by me (1pt min.). @ Yes-[None done] CT interpreted by me (1pt min.). @ -[None done] U/S interpreted by me (1pt. min.). @ -[None done] What testing was considered but not performed or refused? (CT, X-rays, U/S, labs)? Why? @ -[None] What meds were considered but not given or refused? Why? @ -[None] Did you discuss the management of the patient with other professionals (professionals i.e. [facility] Crowe, AIR MOTOR REPAIRER, lab, RT, psych nurse, psychiatric social worker, fishing tackle repairer, teacher, assurance officer, case operator)? Give summary @ -[No] Was smoking cessation discussed for >3mins.? @ -[No] Was critical care preformed (if so, how long)? @ -[No] Were there social determinants of health that impacted care today? How? (Homelessness, low income, unemployed, alcoholism, drug addiction, transportation, low edu. Level, literacy, decrease access to med. care, residential, rehab)? @ -[No] Was there de-escalation of care discussed even if they declined (Discuss DNR or withdrawal of care, Hospice)? DNR status @ -[No] What co-morbidities impacted this encounter? (DM, HTN, Smoking, COPD, CAD, Cancer, CVA, ARF, Chemo, Hep., AIDS, mental health diagnosis, sleep apnea, morbid obesity)? @ -[None] Was patient admitted / discharged? Hospital course, mention meds given and route, prescriptions, significant lab abnormalities, going to OR and other pertinent info. @ The patient was discharged-[hospital course] Undiagnosed new problem with uncertain prognosis? @ Right lower lobe pneumonia-[] Drug Therapy requiring intensive monitoring for toxicity (Heparin, Nitro, Insulin, Cardizem)? @ -[No] Were any procedures done? @ -[No] Diagnosis/symptom? @ Right lower lobe pneumonia, acute bronchospasm, asthma exacerbation-[default] Acute, or Chronic, or Acute on Chronic? @ -[default] Uncomplicated (without systemic symptoms) or Complicated (systemic symptoms)? @ -[default] Side effects of treatment? @ -[No] Exacerbation, Progression, or Severe Exacerbation? @ -[No] Poses a threat to life or bodily function? How? (Chest pain, [place], [place], pneumonia, PE, COPD, DKA, ARF, appy, cholecystitis, CVA, Diverticulitis, Homicidal, Suicidal, threat to staff... and all critical care pts) @ -[If not treated yes] - Lab Data Result diagrams: 08/17/22 12:34 08/17/22 12:34 Lab Results 08/17/22 08/17/22 08/17/22 Range/Units 12:34 12:34 12:34 WBC 7.6 (3.8-10.6) k/uL RBC 4.05 (3.80-5.40) m/uL Hgb 12.3 (11.4-16.0) gm/dL Hct 37.1 (34.0-46.0) % MCV 91.6 (80.0-100.0) fL MCH 30.4 (25.0-35.0) pg MCHC 33.2 (31.0-37.0) g/dL RDW 13.5 (11.5-15.5) % Plt Count 293 (150-450) k/uL MPV 8.0 Neutrophils % 72 % Lymphocytes % 17 % Monocytes % 6 % Eosinophils % 2 % Basophils % 0 % Neutrophils # 5.5 (1.3-7.7) k/uL Lymphocytes # 1.3 (1.0-4.8) k/uL Monocytes # 0.5 (0-1.0) k/uL Eosinophils # 0.2 (0-0.7) k/uL Basophils # 0.0 (0-0.2) k/uL PT 10.4 (9.0-12.0) sec INR 1.0 (<1.2) APTT 26.4 (22.0-30.0) sec D-Dimer 0.52 (<0.60) mg/L FEU Sodium 139 (137-145) mmol/L Potassium 4.7 (3.5-5.1) mmol/L Chloride 108 H (98-107) mmol/L Carbon Dioxide 23 (22-30) mmol/L Anion Gap 8 mmol/L BUN 14 (7-17) mg/dL Creatinine 0.65 (0.52-1.04) mg/dL Est GFR (CKD-EPI)AfAm >90 (>60 ml/min/1.73 sqM) Est GFR (CKD-EPI)NonAf 88 (>60 ml/min/1.73 sqM) Glucose 97 (74-99) mg/dL Plasma Lactic Acid Leonel (0.7-2.0) mmol/L Calcium 9.1 (8.4-10.2) mg/dL Magnesium 1.4 L (1.6-2.3) mg/dL Total Bilirubin 0.4 (0.2-1.3) mg/dL AST 21 (14-36) U/L ALT 17 (4-34) U/L Alkaline Phosphatase 66 (38-126) U/L Troponin I (0.000-0.034) ng/mL NT-Pro-B Natriuret Pep pg/mL Total Protein 6.5 (6.3-8.2) g/dL Albumin 3.8 (3.5-5.0) g/dL 08/17/22 08/17/22 08/17/22 Range/Units 12:34 12:34 12:34 WBC (3.8-10.6) k/uL RBC (3.80-5.40) m/uL Hgb (11.4-16.0) gm/dL Hct (34.0-46.0) % MCV (80.0-100.0) fL MCH (25.0-35.0) pg MCHC (31.0-37.0) g/dL RDW (11.5-15.5) % Plt Count (150-450) k/uL MPV Neutrophils % % Lymphocytes % % Monocytes % % Eosinophils % % Basophils % % Neutrophils # (1.3-7.7) k/uL Lymphocytes # (1.0-4.8) k/uL Monocytes # (0-1.0) k/uL Eosinophils # (0-0.7) k/uL Basophils # (0-0.2) k/uL PT (9.0-12.0) sec INR (<1.2) APTT (22.0-30.0) sec D-Dimer (<0.60) mg/L FEU Sodium (137-145) mmol/L Potassium (3.5-5.1) mmol/L Chloride (98-107) mmol/L Carbon Dioxide (22-30) mmol/L Anion Gap mmol/L BUN (7-17) mg/dL Creatinine (0.52-1.04) mg/dL Est GFR (CKD-EPI)AfAm (>60 ml/min/1.73 sqM) Est GFR (CKD-EPI)NonAf (>60 ml/min/1.73 sqM) Glucose (74-99) mg/dL Plasma Lactic Acid Leonel 1.8 (0.7-2.0) mmol/L Calcium (8.4-10.2) mg/dL Magnesium (1.6-2.3) mg/dL Total Bilirubin (0.2-1.3) mg/dL AST (14-36) U/L ALT (4-34) U/L Alkaline Phosphatase (38-126) U/L Troponin I <0.012 (0.000-0.034) ng/mL NT-Pro-B Natriuret Pep 818 pg/mL Total Protein (6.3-8.2) g/dL Albumin (3.5-5.0) g/dL - EKG Data -: EKG Interpreted by Me EKG Comments: EKG interpreted by me shows sinus bradycardia rate 56. Interval 171 QRS faith 85 QT since QTC 456/448 low-voltage poor R-wave progression no acute ST-T wave changes seen - Radiology Data Interpreted by me: Imaging interpreted by me evidence of a right lower lobe infiltrate consistent with pneumonia Disposition Clinical Impression: Right lower lobe pneumonia, Acute bronchospasm, Asthma exacerbation Disposition: HOME SELF-CARE Condition: Good Instructions (If sedation given, give patient instructions): Asthma (ED), Bronchospasm (ED) Prescriptions: Ipratropium/Albuter 20-100Mcg [Combivent Respimat 20-100Mcg Inhaler] 1 puff INHALATION QID PRN #1 gm PRN Reason: Dyspnea predniSONE [Deltasone] 20 mg PO BID #10 tab Cephalexin [Keflex] 500 mg PO Q6HR 1 Days #40 cap Is patient prescribed a controlled substance at d/c from ED?: No Referrals: Yash Suzao DO [Primary Care Provider] - 1-2 days Decision Date: 08/17/22 Decision Time: 14:20
--- NOTE | 2022-08-17 12:59 | XR ---
EXAMINATION TYPE: XR chest 2V DATE OF EXAM: 08/17/2022 COMPARISON: 07/19/2022 TECHNIQUE: PA and lateral views submitted. HISTORY: Shortness of breath FINDINGS: Heart size is normal. Hypertrophic degenerative changes in the spine. Arthropathy of the shoulders. T here is a small left pleural effusion and basilar consolidation. Interstitial pattern seen with no si zable pneumothorax. IMPRESSION: 1. Left lower lobe infiltrate and small effusion. Correlate for pneumonia otherwise consider mild CHF .
[2022-08-17 13:02] LABS: ALT 17 U/L (4-34); AST 21 U/L (14-36); African American GFR (CKD) >90 (>60 ml/min/1.73 sqM); Albumin 3.8 g/dL (3.5-5.0); Alkaline Phosphatase 66 U/L (38-126); Anion Gap 8 mmol/L; Blood Urea Nitrogen 14 mg/dL (7-17); Calcium 9.1 mg/dL (8.4-10.2); Carbon Dioxide 23 mmol/L (22-30); Chloride 108 mmol/L (98-107); Glucose 97 mg/dL (74-99); Magnesium 1.4 mg/dL (1.6-2.3); Non-African American GFR(CKD) 88 (>60 ml/min/1.73 sqM); Potassium 4.7 mmol/L (3.5-5.1); Sodium 139 mmol/L (137-145); Total Bilirubin 0.4 mg/dL (0.2-1.3); Total Protein 6.5 g/dL (6.3-8.2)
[2022-08-17 13:05] LABS: Partial Thromboplastin Time 26.4 sec (22.0-30.0); Prothrombin Time 10.4 sec (9.0-12.0)
[2022-08-17] MEDS ORDERED: MAGNESIUM SULFATE-D5W PMX 1 GM in DEXTROSE/WATER 1 100ML.BAG IVPB ONE (13:34)
[2022-08-17] MEDS ORDERED: cefTRIAXone IN SWFI 1,000 MG/10 ML SYRINGE IVP STA (14:19)
[2022-08-17] MEDS ORDERED: methylPREDNISolone SOD SUCCI 125 MG/2 ML VIAL IV STA (14:20)
[2022-08-17 15:30] VITALS: BP 132/62; PULSE 54; RESP 18; TEMP 98.8
== END 2022-08-17 16:01 | disposition home or self-care (01) ==
LOC: EC 11:28
DX: J18.9 Pneumonia, unspecified organism (principal); J98.01 Acute bronchospasm; I25.10 Atherosclerotic heart disease of native coronary artery without angina pectoris; I10 Essential (primary) hypertension; F32.A Depression, unspecified; F41.9 Anxiety disorder, unspecified; E07.9 Disorder of thyroid, unspecified; Z90.89 Acquired absence of other organs; Z90.49 Acquired absence of other specified parts of digestive tract; Z95.5 Presence of coronary angioplasty implant and graft; Z88.1 Allergy status to other antibiotic agents; Z88.2 Allergy status to sulfonamides; Z91.011 Allergy to milk products; Z79.890 Hormone replacement therapy; Z79.899 Other long term (current) drug therapy
CPT/HCPCS: 36415; 94640; 93005; 85379; 83880; 80053; 83605; 83735; 84484; 85025; 85610; 85730; 71046; 99285; 96365; 96375; J2930; J0696; J3475

== ENCOUNTER → 2022-08-22 | Outpatient (CLI) | payer MEDICARE ==
--- NOTE | 2022-08-22 14:27 | CT ---
EXAMINATION TYPE: CT abdomen pelvis w con CT DLP: 1621 mGycm, Automated exposure control for dose reduction was used. DATE OF EXAM: 08/22/2022 2:17 PM COMPARISON: CT abdomen pelvis most recent from 03/30/2020. CLINICAL INDICATION:Female, 72 years old with history of R10.84 generalized abdominal pain; generaliz ed abdominal pain and back pain. recurrent UTI. TECHNIQUE: Standard CT of the abdomen and pelvis following the administration of 70 cc of Isovue 30 0 IV contrast material and oral contrast. Coronal and sagittal reformats were performed. FINDINGS: LOWER CHEST: The lung bases are clear. Mild cardiomegaly. Coronary arterial calcifications. ABDOMEN LIVER: Diffusely hypoattenuating parenchyma. GALLBLADDER AND BILE DUCTS: The gallbladder is surgically absent. No biliary duct dilatation. PANCREAS: Unremarkable. SPLEEN: Unchanged peripheral linear calcification likely related to prior injury. ADRENAL GLANDS: Unremarkable. KIDNEYS AND URETERS: No evidence of hydronephrosis or renal calculus. The kidneys enhance symmetrical ly. Cortical thinning redemonstrated presumed product of chronic medical renal disease. PELVIS BLADDER: Incompletely distended but grossly unremarkable. REPRODUCTIVE: Anteverted uterus with dystrophic calcification along its anterior aspect. Decreased si ze of left adnexal cystic lesion measuring 3.5 cm, previously measured up to 4.1 cm. This is presumed to be benign. ABDOMEN & PELVIS STOMACH AND BOWEL: Stomach is unremarkable. Diverticula involving the second portion of the duodenum redemonstrated. Anastomosis redemonstrated within the sigmoid region. Scattered distal colon divertic ulosis without evidence for acute diverticulitis. The appendix is not visualized. Enteric contrast re aches the ileocecal junction. No evidence of bowel obstruction. PERITONEUM: No evidence of pneumoperitoneum or free fluid. VASCULATURE: No evidence of aortic aneurysm. MUSCULOSKELETAL: No acute osseous abnormalities. Moderate disc degeneration changes are present throu ghout the thoracolumbar spine. LYMPH NODES: No gross evidence for lymphadenopathy. SOFT TISSUE/ABDOMINAL WALL: Postsurgical changes anterior abdominal wall from mesh repair. No ventral hernia identified. IMPRESSION: 1. No acute edematous pelvic process. 2. Fibroid changes of the uterus with marginal decrease in size of left adnexal cystic lesion from pr ior examination in 2019, considered benign. 3. Hepatic steatosis. 4. Colonic diverticulosis without evidence for acute diverticulitis.
== END | disposition home or self-care (01) ==
LOC: RADCTMAIN 12:02
PROVIDERS: ATTEND Family Medicine
DX: D25.9 Leiomyoma of uterus, unspecified (principal); R10.84 Generalized abdominal pain; K57.30 Diverticulosis of large intestine without perforation or abscess without bleeding; K76.0 Fatty (change of) liver, not elsewhere classified; Z87.440 Personal history of urinary (tract) infections
CPT/HCPCS: 82565; 84520; 74177; 36415; Q9967 ×2

== ENCOUNTER 2022-10-23 13:00 | Day surgery (SDC) | payer MEDICARE ==
[2022-10-23] MEDS ORDERED: SODIUM CHLORIDE 0.9% 1,000 ML IV ONE (13:26)
[2022-10-23 14:15] LABS: ALT 20 U/L (4-34); AST 28 U/L (14-36); African American GFR (CKD) >90 (>60 ml/min/1.73 sqM); Albumin 4.3 g/dL (3.5-5.0); Alkaline Phosphatase 69 U/L (38-126); Anion Gap 8 mmol/L; Blood Urea Nitrogen 16 mg/dL (7-17); Calcium 9.1 mg/dL (8.4-10.2); Carbon Dioxide 26 mmol/L (22-30); Chloride 105 mmol/L (98-107); Glucose 97 mg/dL (74-99); Non-African American GFR(CKD) 85 (>60 ml/min/1.73 sqM); Potassium 4.3 mmol/L (3.5-5.1); Sodium 139 mmol/L (137-145); Total Bilirubin 0.6 mg/dL (0.2-1.3); Total Protein 7.2 g/dL (6.3-8.2)
[2022-10-23] MEDS ORDERED: LIDOCAINE 2% INJ 20 MG/ML (2 ML VIAL) ONE (14:45)
[2022-10-23] MEDS ORDERED: WATER FOR INJECTION, STERILE 10 ML VIAL IV ONE (14:45)
[2022-10-23] MEDS ORDERED: ROCURONIUM 10 MG/ML (5 ML VIAL) IV ONE (14:45)
[2022-10-23] MEDS ORDERED: FUROSEMIDE 10 MG/ML 2 ML VIAL ONE (14:45)
[2022-10-23] MEDS ORDERED: MIDAZOLAM 2 MG/2 ML VIAL ONE (14:45)
[2022-10-23] MEDS ORDERED: NEOSTIGMINE 1 MG/ML 10 ML VIAL ONE (14:45)
[2022-10-23] MEDS ORDERED: GLYCOPYRROLATE 0.2 MG/ML 2 ML VIAL ONE (14:45)
[2022-10-23] MEDS ORDERED: SUCCINYLCHOLINE CHLORIDE 200 MG/10 ML VIAL IV ONE (14:45)
[2022-10-23] MEDS ORDERED: PROPOFOL 10 MG/ML 20 ML VIAL IV ONE (14:45)
[2022-10-23] MEDS ORDERED: ISOPROTERENOL 250 MCG/1.25 ML SYR IV ONE (14:45)
[2022-10-23] MEDS ORDERED: ePHEDrine 50 MG/ML 1 ML VIAL ONE (14:45)
[2022-10-23] MEDS ORDERED: PHENYLEPHRINE-0.9% NACL SYG 1,000 MCG/10 ML SYRINGE ONE (14:45)
[2022-10-23] MEDS ORDERED: fentaNYL (PF) 50 MCG/ML 2 ML AMP ONE (14:45)
[2022-10-23] MEDS ORDERED: HEPARIN SODIUM,PORCINE 10,000 UNIT/ML 1 ML VIAL ONE (14:45)
--- NOTE | 2022-10-23 14:49 | P.HPCAR ---
History of Present Illness This is Dr. 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 fib ablation with PVI at [facility] PLAN: Diagnostic EP study to induce the atrial tachycardia Ablation of atrial tachycardia if inducible Assessment of the left atrium/pulmonary veins HPI Patient complains of recurrent palpitations Charge of breath and exertion No angina like symptoms. She has not had any fever chills cough expectoration No syncope ROS: No fever chills or rigors, no cough, phlegm or expectoration, no nausea, vomiting or diarrhea, no hematuria, dysuria, no musculoskeletal complaints, no strokes or seizures, no skin lesions. EXAMINATION: Afebrile 97.9F No JVD no hepatojugular reflux Orthopnea or PND Heart rates in the 50s, blood pressure 131/80 mmHg Breath sounds are clear no rhonchi no crackles Normal heart sounds normal S1 normal S2 No lower extremity edema Central obesity, no abdominal tenderness REVIEW OF LABS, ECG & MEDICAL DATA Recent labs were reviewed and show a hemoglobin of 11.8, normal white count Normal electrolytes with a sodium 139, potassium 4.3 BUN 16 creatinine 0.71 12-lead EKG was reviewed and shows an atrial tachycardia with 21 block with upright QRS is in lead 23 and aVF, upright in V2 and V3 and somewhat flat in lead V1 Physical Exam Vitals: Vital Signs Temp Pulse Resp BP Pulse Ox 10/23/22 13:35 97.9 F 57 L 16 131/80 97 Intake and Output 10/22/22 10/23/22 10/23/22 22:59 06:59 14:59 Other: Weight 113.1 kg Past Medical History Past Medical History: Atrial Fibrillation, Asthma, Coronary Artery Disease (CAD), Hearing Disorder / Deafness, Hyperlipidemia, Hypertension, Myocardial Infarction ([place]), Osteoarthritis ([place]), Thyroid Disorder Additional Past Medical History / Comment(s): Bronchitis, sinus issues, chronic cervical and back pain, DDD, hypoglycemia, hypothyroid, diverticulitis/bowel resection, bilateral tinnitis, "water retention". pt denies having SC see dr Dennison's H & P Last Myocardial Infarction Date:: 08/26/21 History of Any Multi-Drug Resistant Organisms: None Reported Past Surgical History: Appendectomy, Bladder Surgery, Bowel Resection, Cardiac Ablation, Cholecystectomy, Heart Catheterization, Heart Catheterization With Stent, Hernia Repair, Tubal Ligation Additional Past Surgical History / Comment(s): 08/26/21 PCI with stent, bowel resection d/t diverticulitis, incisional hernia repair x2 with mesh, appendix burst and put hole in bladder/pt had surgery to repair the hole Past Anesthesia/Blood Transfusion Reactions: No Reported Reaction Additional Past Anesthesia/Blood Transfusion Reaction / Comment(s): hard to wake up from anesthesia Date of Last Stent Placement:: 08/26/21 Smoking Status: Never smoker - Past Family History Mother Family Medical History: AFIB, COPD, Hypertension Father Family Medical History: Cancer Physical Examination Vital Signs Temp Pulse Resp BP Pulse Ox 10/23/22 13:35 97.9 F 57 L 16 131/80 97 Intake and Output 10/22/22 10/23/22 10/23/22 22:59 06:59 14:59 Other: Weight 113.1 kg Results 10/23/22 13:24 Cardiac Enzymes 10/23/22 Range/Units 13:24 AST 28 (14-36) U/L Comprehensive Metabolic Panel 10/23/22 Range/Units 13:24 Sodium 139 (137-145) mmol/L Potassium 4.3 (3.5-5.1) mmol/L Chloride 105 (98-107) mmol/L Carbon Dioxide 26 (22-30) mmol/L BUN 16 (7-17) mg/dL Creatinine 0.71 (0.52-1.04) mg/dL Glucose 97 (74-99) mg/dL Calcium 9.1 (8.4-10.2) mg/dL AST 28 (14-36) U/L ALT 20 (4-34) U/L Alkaline Phosphatase 69 (38-126) U/L Total Protein 7.2 (6.3-8.2) g/dL Albumin 4.3 (3.5-5.0) g/dL Current Medications Generic Name Dose Route Start Last Admin Trade Name Freq PRN Reason Stop Dose Admin Sodium Chloride 1,000 mls @ 20 mls/hr 10/23/22 05:50 Saline 0.9% IV 11/22/22 05:51 .Q24H KOTA Intake and Output 10/22/22 10/23/22 10/23/22 22:59 06:59 14:59 Other: Weight 113.1 kg Patient Weight 10/24/22 06:59 Weight 113.1 kg 10/23/22 13:24
[2022-10-23] MEDS ORDERED: LIDOCAINE 1% INJ 10MG/ML (20 ML MDV) SQ ONE (15:23)
[2022-10-23] MEDS ORDERED: HEPARIN SODIUM (1,000 UNIT/ML) 1,000 UNIT in SODIUM CHLORIDE 0.9% 1,000 ML IRRIGATION ONE (15:26)
[2022-10-23] MEDS ORDERED: HEPARIN SOD,PORK IN 0.45% NACL 25,000 UNIT in 0.45% NACL 1 250ML.BAG IV ONE (17:36)
[2022-10-23] MEDS ORDERED: ACETAMINOPHEN IV (For NPO) 1,000 MG in EMPTY BAG 1 BAG IVPB ONE (18:45)
[2022-10-23] MEDS ORDERED: ACETAMINOPHEN TAB 325 MG TAB PO PRN (18:45)
[2022-10-23] MEDS ORDERED: SYMBICORT 80-4.5 MCG INHALER INHALATION PRN (18:47)
[2022-10-23] MEDS ORDERED: NON FORMULARY DRUG (Ipratropium/Albuter 20-100mcg 120 PUFF Each) INHALATION PRN (18:47)
--- NOTE | 2022-10-23 18:53 | P.PRLE ---
RE: Evelia Dhaliwal Dear Dr. Gabriele Altamirano underwent a diagnostic EP study which revealed multiple atrial tachycardias #1 typical atrial flutter - she underwent successful ablation for this #2 a focal atrial tachycardia from the lower limbus of the fossa ovalis - she underwent successful mapping and ablation of this tachycardia #3 roof tachycardia in the left atrium - successful mapping and ablation of this tachycardia Following that a diagnostic EP study did not induce any sustained or nonsustained arrhythmias She will continue to follow with you and Dr. Silva and will continue ELIQUIS along with the other cardiac medications Her intracardiac echo does reveal thickened pericardium with a small amount of fibrinous material around the base of the LV, without any hemodynamic compromise Thank you for entrusting me with the care of the patient Warm regards Sincerely Hollis Dennison
--- NOTE | 2022-10-23 19:07 | P.EPPROC ---
- EP Procedure Note Electrophysiology Procedure Note: Diagnosis Recurrent 2:1 atrial tachycardia as well as one-to-one atrial tachycardia, symptomatic, with RVR Past history of A. fib ablation at [facility] several years back Final result: diagnostic EP study which revealed multiple atrial tachycardias #1 typical atrial flutter - she underwent successful ablation for this #2 a focal atrial tachycardia from the lower limbus of the fossa ovalis - she underwent successful mapping and ablation of this tachycardia #3 roof tachycardia in the left atrium - successful mapping and ablation of this tachycardia # 4. intracardiac echo revealed thickened pericardium with a small amount of fibrinous material around the base of the LV, without any hemodynamic compromise Details Patient was brought to the EP lab in a fasting state. Written informed consent was obtained prior to the procedure Initially a diagnostic EP study is performed under minimal sedation. Subsequently for mapping and ablation and further EP study, general anesthesia is provided Venous sheaths placed in the right left femoral veins. Diagnostic catheters and mapping and ablation cath was placed in the high right atrium His bundle area Seth sinus right ventricle left atrium Intracardiac echo placed Normal RV Thickened pericardium with fibrinous material in the base on the LV, small Mildly enlarged left atrium Cavo tricuspid isthmus identified, small pouch in the mid isthmus Sinus cycle length 970 ms, LA interval 170 ms, QRS 90 ms and QT interval 436 ms AH 41 and HV 59 ms Sinus node recovery times at 600, 504 100 ms were normal No delta waves Nose slow pathway conduction AV node Wenckebach block 300 ms Rising pacing performed and monique response noted VA Wenckebach block 490 ms Extra stimulation was performed from the high right atrium and proximal as well as distal coronary sinus Prior to any ablation frequent nonsustained atrial tachycardia with concentric a ctivation in the coronary sinus induced Isuprel was used in low dose Finally an atrial tachycardia with 2-1 block induced The right atrium was mapped This was counterclockwise flutter During entrainment mapping a second atrial tachycardia was induced and therefore cardioversion was performed to allow for EP study and ablation in sinus rhythm with Successful cavo tricuspid isthmus ablation was performed for typical atrial flutter Isthmus conduction time almost 200 ms in either direction Bidirectional block with differential pacing Diagnostic EP study thereafter induced second atrial tachycardia 3-D W mapping was performed, activation mapping performed Focal atrial tachycardia along the septum on the right side Intracardiac echo revealed that this focus was on the fossa ovalis, lower limbus At the earliest site very broad fractionated electrograms were noted This tachycardia terminated at this point with mechanical stimulation Later during ablation tachycardia terminated Bolus lesions applied on the right side and later even on the left side. This site is very close to the transseptal puncture site that was made EP study was once again performed and a 3rd atrial tachycardia was induced with a concentric activation pattern that would quickly change in cycle length Left and right transseptal catheterization was performed under intracardiac echo guidance RA pressure 14/4/10 LA pressure 24/6/14 During the procedure several cardioversions have to be performed as the tachycardia would degenerate into a foster more irregular atrial tachycardia after initial organized rhythm Electrical cardioversion was performed to allow for diagnostic EP study and mapping Voltage mapping was performed in the left atrium in sinus rhythm On a veins were completely isolated an anterolateral level The left atrial roof had a gap which extended all along the posterior wall as a narrow channel Linear ablation was performed in the left atrial roof and non-capture was documented all along the RF line Following that a diagnostic EP study from the distal coronary sinus, proximal coronary sinus and from the high right atrium did not induce any atrial t achycardia, neither nonsustained or sustained This was a sharp contrast to before the final ablation where nonsustained and sustained atrial tachycardias was repeatedly induced but once the linear ablation was performed in the left atrial roof, to connect the left and right superior pulmonary veins, no further arrhythmias were induced
[2022-10-23] MEDS ORDERED: ALBUTEROL NEBULIZED 2.5 MG/3 ML INHALATION PRN (19:30)
[2022-10-23] MEDS ORDERED: IPRATROPIUM 0.5 MG/2.5 ML NEBU INHALATION PRN (19:30)
[2022-10-23] MEDS ORDERED: SERTRALINE 50 MG TAB PO SCH (21:00)
[2022-10-23] MEDS: SODIUM CHLORIDE 0.9% 1,000 ML IV SCH (21:08)
[2022-10-23] MEDS: APIXABAN 5 MG TAB PO SCH (21:10)
[2022-10-23] MEDS: METOPROLOL TARTRATE 50 MG TAB PO SCH (21:10)
[2022-10-24] MEDS: SODIUM CHLORIDE 0.9% 1,000 ML IV SCH (05:00)
[2022-10-24 06:29] VITALS: RESP 14; TEMP 96.5
[2022-10-24] MEDS ORDERED: LEVOTHYROXINE 25 MCG TAB PO SCH (06:30)
[2022-10-24] MEDS ORDERED: MAGNESIUM OXIDE 400 MG TAB PO SCH (09:00)
[2022-10-24] MEDS ORDERED: LOSARTAN 25 MG TAB PO SCH (09:00)
[2022-10-24] MEDS: APIXABAN 5 MG TAB PO SCH (09:26)
[2022-10-24] MEDS: METOPROLOL TARTRATE 50 MG TAB PO SCH (09:26)
[2022-10-24 10:33] VITALS: BP 123/83; PULSE 63
--- NOTE | 2022-10-24 14:41 | P.EPPROC ---
- EP Procedure Note Electrophysiology Procedure Note: Patient is resting comfortably in bed She is ambulating around in the hallways Rhythm is regular EKG is normal today on telemetry Afebrile 96.5F pulse rate in the 60s blood pressure 117/68 mmHg Breath sounds are clear Normal heart sounds no murmurs Groins and healed well no hematoma Impression Recurrent atrial tachycardia, multiple different atrial tachycardias ablated including #1 total atrial flutter ablation #2 focal atrial tachycardia from the lower limbus of the fossa ovalis with ablations on the left side as well as the right side of the septum #3 left atrial roof tachycardia Once these 3 ablations were completed, no arrhythmias could be induced, not even nonsustained atrial arrhythmias Pulmonary veins were mapped. They had with ablated several years back at [facility]. The pulmonary veins completely isolated at an anterolateral level Plan Continue current medications continue anticoagulation Discharge home today. Follow-up with Dr. Silva Incidentally reducing the dose of metoprolol if she has no further arrhythmias after 6 weeks
== END 2022-10-24 15:20 | disposition home or self-care (01) ==
LOC: CATHEP 13:00 → 6NMEDSUR 18:32 → CATHEP 10-24 15:20
PROVIDERS: ATTEND Internal Medicine Clinical Cardiac Electrophysiology
DX: I25.10 Atherosclerotic heart disease of native coronary artery without angina pectoris (principal); E03.9 Hypothyroidism, unspecified; E78.5 Hyperlipidemia, unspecified; I10 Essential (primary) hypertension; I25.2 Old myocardial infarction; I47.1 Supraventricular tachycardia; I48.91 Unspecified atrial fibrillation; J45.909 Unspecified asthma, uncomplicated; M19.90 Unspecified osteoarthritis, unspecified site; Z82.49 Family history of ischemic heart disease and other diseases of the circulatory system; Z90.49 Acquired absence of other specified parts of digestive tract; Z95.5 Presence of coronary angioplasty implant and graft
CPT/HCPCS: 93462; 92960; 93623; 93662; 93655; 93656; 80053; 84443; C1894; C1769 ×3; C1760; C1730 ×3; C1731; C1759; C1893; C1732; J2001; J1644 ×2

== ENCOUNTER 2022-11-22 15:47 | Emergency (ER) | payer MEDICARE ==
--- NOTE | 2022-11-22 16:40 | ED ---
General Adult HPI - General Source: patient, RN notes reviewed Mode of arrival: ambulatory Limitations: no limitations <Solange Matta - Last Filed: 11/22/22 16:44> <Heladio Berg - Last Filed: 11/22/22 19:50> - General Chief complaint: Recheck/Abnormal Lab/Rx Stated complaint: high blood pressure Time Seen by Provider: 11/22/22 16:37 - History of Present Illness Initial comments: Patient is a 72-year-old female presents for high blood pressure. Patient has history of hypertension on losartan and metoprolol. She states her blood pressure is normally in the 130-140s/70s and this week it has been 170-180s/16 0s. She denies chest pain and shortness of breath. No blurry vision, dizziness. States she called Dr. Silva who told her to come in for evaluation of headache with elevated blood pressure. She also has neck pain. Denies injury and recent falls. Patient had an ablation end of October for atrial fibrillation. (Solange Matta) - Related Data Home Medications Medication Instructions Recorded Confirmed Apixaban [Eliquis] 5 mg PO BID 08/26/21 10/23/22 Ergocalciferol [Vitamin D2 (1250 1,250 mcg PO TH 08/26/21 10/23/22 Mcg = 49610 Iu)] Furosemide [Lasix] 20 mg PO DAILY 08/26/21 10/23/22 Levothyroxine Sodium 25 mcg PO DAILY 08/26/21 10/23/22 Pantoprazole [Protonix] 40 mg PO ONCE 08/26/21 10/23/22 Sertraline HCl [Zoloft] 50 mg PO HS 08/26/21 10/23/22 Sucralfate [Carafate] 1 gm PO TID 08/26/21 10/23/22 Evolocumab [Repatha Sureclick] 140 mg SQ Q14D 11/10/21 10/23/22 Losartan Potassium [Cozaar] 25 mg PO DAILY 11/10/21 10/23/22 Magnesium Gluconate [Magonate] 500 mg PO DAILY 11/10/21 10/23/22 Albuterol Inhaler [Ventolin Hfa 1 - 2 puff INHALATION RT-Q6H PRN 07/19/22 10/18/22 Inhaler] Mometasone/Formoterol [Dulera 100 1 puff INHALATION RT-BID PRN 07/19/22 10/23/22 Mcg-5 Mcg Inhaler] Potassium Gluconate 500mg 500 mg PO BID 07/19/22 10/23/22 Previous Rx's Medication Instructions Recorded Metoprolol Tartrate [Lopressor] 50 mg PO BID 30 Days #60 tab 07/20/22 Ipratropium/Albuter 20-100Mcg 1 puff INHALATION QID PRN #1 gm 08/17/22 [Combivent Respimat 20-100Mcg Inhaler] Allergies Allergy/AdvReac Type Severity Reaction Status Date / Time amoxicillin [From Augmentin] Allergy Nausea Verified 11/22/22 16:01 ciprofloxacin [From Cipro] Allergy Rash/Hives Verified 11/22/22 16:01 clarithromycin [From Biaxin] Allergy Nausea & Verified 11/22/22 16:01 Vomiting clavulanic acid Allergy Nausea Verified 11/22/22 16:01 [From Augmentin] levofloxacin [From Levaquin] Allergy Nausea Verified 11/22/22 16:01 milk Allergy Nausea & Verified 11/22/22 16:01 Vomiting nitrofurantoin Allergy Nausea & Verified 11/22/22 16:01 [From Macrobid] Vomiting sulfamethoxazole Allergy Nausea Verified 11/22/22 16:01 [From Bactrim] trimethoprim [From Bactrim] Allergy Nausea Verified 11/22/22 16:01 [id number] Reductase AdvReac Unknown Verified 11/22/22 16:01 Inhibitor Sulfa (Sulfonamide AdvReac Nausea Verified 11/22/22 16:01 Antibiotics) Review of Systems ROS Other: All systems not noted in ROS Statement are negative. <Solange Matta - Last Filed: 11/22/22 16:44> ROS Other: All systems not noted in ROS Statement are negative. <Heladio Berg - Last Filed: 11/22/22 19:50> ROS Statement: Those systems with pertinent positive or pertinent negative responses have been documented in the HPI. Past Medical History Past Medical History: Atrial Fibrillation, Asthma, Coronary Artery Disease (CAD), Hearing Disorder / Deafness, Hyperlipidemia, Hypertension, Myocardial Infarction (TX), Osteoarthritis (OA), Thyroid Disorder Additional Past Medical History / Comment(s): Bronchitis, sinus issues, chronic cervical and back pain, DDD, hypoglycemia, hypothyroid, diverticulitis/bowel resection, bilateral tinnitis, "water retention". pt denies having TX see dr [facility]enn[facility] Last Myocardial Infarction Date:: 08/26/21 History of Any Multi-Drug Resistant Organisms: None Reported Past Surgical History: Appendectomy, Bladder Surgery, Bowel Resection, Cardiac Ablation, Cholecystectomy, Heart Catheterization, Heart Catheterization With Stent, Hernia Repair, Tubal Ligation Additional Past Surgical History / Comment(s): 08/26/21 PCI with stent, bowel resection d/t diverticulitis, incisional hernia repair x2 with mesh, appendix burst and put hole in bladder/pt had surgery to repair the hole Past Anesthesia/Blood Transfusion Reactions: No Reported Reaction Additional Past Anesthesia/Blood Transfusion Reaction / Comment(s): hard to wake up from anesthesia Date of Last Stent Placement:: 08/26/21 Past Psychological History: Anxiety, Depression Smoking Status: Never smoker Past Alcohol Use History: None Reported Past Drug Use History: None Reported - Past Family History Mother Family Medical History: AFIB, COPD, Hypertension Father Family Medical History: Cancer <Solange Matta - Last Filed: 11/22/22 16:44> General Exam Limitations: no limitations <Solange Matta - Last Filed: 11/22/22 16:44> - General Exam Comments Initial Comments: Visual Physical Exam Vital signs reviewed General: Well-appearing, nontoxic, no acute distress. Head: Normocephalic, atraumatic Eyes: PERRLA, EOMI ENT: Airway patent Chest: Nonlabored breathing Skin: No visual rash, normal skin tone Neuro: Alert and oriented 3 Musculoskeletal: No gross abnormalities (Solange Matta) Course Vital Signs 11/22/22 11/22/22 15:57 18:03 Temperature 98.2 F Pulse Rate 55 L 85 Respiratory 20 16 Rate Blood Pressure 185/77 152/65 O2 Sat by Pulse 98 95 Oximetry Medical Decision Making - Lab Data Result diagrams: 11/22/22 17:30 11/22/22 18:30 <Heladio Berg - Last Filed: 11/22/22 19:50> - Lab Data Lab Results 11/22/22 11/22/22 11/22/22 Range/Units 17:30 17:30 18:30 WBC 8.0 (3.8-10.6) k/uL RBC 4.12 (3.80-5.40) m/uL Hgb 12.7 (11.4-16.0) gm/dL Hct 38.2 (34.0-46.0) % MCV 92.7 (80.0-100.0) fL MCH 30.7 (25.0-35.0) pg MCHC 33.2 (31.0-37.0) g/dL RDW 14.1 (11.5-15.5) % Plt Count 259 (150-450) k/uL MPV 7.9 Neutrophils % 71 % Lymphocytes % 20 % Monocytes % 6 % Eosinophils % 2 % Basophils % 0 % Neutrophils # 5.7 (1.3-7.7) k/uL Lymphocytes # 1.6 (1.0-4.8) k/uL Monocytes # 0.4 (0-1.0) k/uL Eosinophils # 0.1 (0-0.7) k/uL Basophils # 0.0 (0-0.2) k/uL Sodium 137 (137-145) mmol/L Potassium 4.4 (3.5-5.1) mmol/L Chloride 105 (98-107) mmol/L Carbon Dioxide 27 (22-30) mmol/L Anion Gap 5 mmol/L BUN 20 H (7-17) mg/dL Creatinine 0.73 (0.52-1.04) mg/dL Est GFR (CKD-EPI)AfAm >90 (>60 ml/min/1.73 sqM) Est GFR (CKD-EPI)NonAf 82 (>60 ml/min/1.73 sqM) Glucose 93 (74-99) mg/dL Calcium 8.9 (8.4-10.2) mg/dL Total Bilirubin 0.4 (0.2-1.3) mg/dL AST 21 (14-36) U/L ALT 18 (4-34) U/L Alkaline Phosphatase 81 (38-126) U/L Total Protein 6.5 (6.3-8.2) g/dL Albumin 3.7 (3.5-5.0) g/dL Coronavirus (PCR) Not Detected (Not Detectd) Disposition <Solange Matta - Last Filed: 11/22/22 16:44> Is patient prescribed a controlled substance at d/c from ED?: No <Heladio Berg - Last Filed: 11/22/22 19:50> Clinical Impression: Hypertension, Headache Disposition: HOME SELF-CARE Condition: Good Instructions (If sedation given, give patient instructions): Acute Headache (DC), Hypertension (ED) Referrals: Yash Suazo DO [Primary Care Provider] - 1-2 days
[2022-11-22 17:43] LABS: Basophils % (A) 0 %; Eosinophils # (A) 0.1 k/uL (0-0.7); Eosinophils % (A) 2 %; HCT 38.2 % (34.0-46.0); HGB 12.7 gm/dL (11.4-16.0); Lymphocytes # (A) 1.6 k/uL (1.0-4.8); Lymphocytes % (A) 20 %; MCH 30.7 pg (25.0-35.0); MCHC 33.2 g/dL (31.0-37.0); MCV 92.7 fL (80.0-100.0); Mean Platelet Volume 7.9; Monocytes # (A) 0.4 k/uL (0-1.0); Monocytes % (A) 6 %; Neutrophils # (A) 5.7 k/uL (1.3-7.7); Neutrophils % (A) 71 %; Platelet Count 259 k/uL (150-450); RBC 4.12 m/uL (3.80-5.40); RDW 14.1 % (11.5-15.5)
[2022-11-22 18:03] VITALS: RESP 16
--- NOTE | 2022-11-22 18:23 | XR ---
EXAMINATION TYPE: XR chest 2V DATE OF EXAM: 11/22/2022 5:47 PM COMPARISON: Chest radiographs from 10/02/2022 TECHNIQUE: XR chest 2V Frontal and lateral views of the chest. CLINICAL INDICATION:Female, 72 years old with history of elevated BP, headache; FINDINGS: Lungs/Pleura: There is no evidence of pleural effusion, focal consolidation, or pneumothorax. Pulmonary vascularity: Unremarkable. Heart/mediastinum: Cardiomediastinal silhouette is enlarged and stable. Musculoskeletal: Degenerative changes of the shoulder joints. IMPRESSION: 1. No acute cardiopulmonary disease/process. 2. Mild cardiomegaly.
[2022-11-22] MEDS ORDERED: MORPHINE SULFATE 2 MG/ML SYRINGE IV STA (18:42)
[2022-11-22] MEDS ORDERED: cloNIDine HCL 0.2 MG TAB PO STA (18:42)
[2022-11-22] MEDS ORDERED: METOCLOPRAMIDE 5 MG/ML 2 ML VIAL IVP STA (18:42)
[2022-11-22 19:01] LABS: ALT 18 U/L (4-34); AST 21 U/L (14-36); African American GFR (CKD) >90 (>60 ml/min/1.73 sqM); Albumin 3.7 g/dL (3.5-5.0); Alkaline Phosphatase 81 U/L (38-126); Anion Gap 5 mmol/L; Blood Urea Nitrogen 20 mg/dL (7-17); Calcium 8.9 mg/dL (8.4-10.2); Carbon Dioxide 27 mmol/L (22-30); Chloride 105 mmol/L (98-107); Glucose 93 mg/dL (74-99); Non-African American GFR(CKD) 82 (>60 ml/min/1.73 sqM); Potassium 4.4 mmol/L (3.5-5.1); Sodium 137 mmol/L (137-145); Total Bilirubin 0.4 mg/dL (0.2-1.3); Total Protein 6.5 g/dL (6.3-8.2)
--- NOTE | 2022-11-22 19:10 | CT ---
EXAMINATION TYPE: CT brain wo con CT DLP: 1121.9 mGycm, Automated exposure control for dose reduction was used. DATE OF EXAM: 11/22/2022 6:58 PM COMPARISON: None. CLINICAL INDICATION:Female, 72 years old with history of Worst headache of life, headache, hx HBP TECHNIQUE: Brain: Axial CT images of the brain were obtained with coronal and sagittal reformats created and rev iewed. Contrast used: None. Oral contrast used: None. FINDINGS: Brain: Extra-axial spaces: No abnormal extra-axial fluid collections. Ventricular system: Within normal limits Cerebral parenchyma: No acute intraparenchymal hemorrhage or mass effect. The crump-white junction is well differentiated. Cerebellum: Unremarkable. Mass effect: No evidence of midline shift. Intracranial vasculature: Atherosclerotic calcifications of the intracranial vessels. Soft tissues: Normal. Calvarium/osseous structures: No depressed skull fracture. Paranasal sinuses and mastoid air cells: Mild scattered paranasal sinus disease. Visualized orbits: Orbital contents are intact. IMPRESSION: No acute intracranial process. No intracranial hemorrhage.
[2022-11-22 19:58] VITALS: BP 136/64; PULSE 70; TEMP 97.9
== END 2022-11-22 20:10 | disposition home or self-care (01) ==
LOC: EC 15:47
DX: I10 Essential (primary) hypertension (principal); R51.9 Headache, unspecified; I48.91 Unspecified atrial fibrillation; J45.909 Unspecified asthma, uncomplicated; I25.10 Atherosclerotic heart disease of native coronary artery without angina pectoris; E78.5 Hyperlipidemia, unspecified; I25.2 Old myocardial infarction; M19.90 Unspecified osteoarthritis, unspecified site; E03.9 Hypothyroidism, unspecified; F41.9 Anxiety disorder, unspecified; F32.A Depression, unspecified; Z88.0 Allergy status to penicillin; Z88.2 Allergy status to sulfonamides; Z91.011 Allergy to milk products; Z88.8 Allergy status to other drugs, medicaments and biological substances; Z88.1 Allergy status to other antibiotic agents; Z79.01 Long term (current) use of anticoagulants; Z79.890 Hormone replacement therapy; Z79.899 Other long term (current) drug therapy; Z20.822 Contact with and (suspected) exposure to COVID-19
CPT/HCPCS: 36415; 93005; 80053; 85025; 87635; 71046; 70450; 99284; 96374; 96375; J2765; J2270

== ENCOUNTER 2024-05-13 12:22 | Inpatient (IN) | payer MEDICARE ==
--- NOTE | 2024-05-13 12:50 | ED ---
General Adult HPI - General Chief complaint: Arrhythmia/Palpitations Stated complaint: Heart palp. Time Seen by Provider: 05/13/24 12:37 Source: patient, RN notes reviewed, old records reviewed Mode of arrival: ambulatory Limitations: no limitations - History of Present Illness Initial comments: 74-year-old female presenting with palpitations, sensation that her heart is racing. She does have history of atrial fibrillation. She states over the past 48 hours she has had the symptoms. No associated chest pain. Mild dyspnea. No fever. No nausea vomiting or diarrhea. Patient states she did contact her track repair person but had not heard back. She has been compliant with her medications. - Related Data Home Medications Medication Instructions Recorded Confirmed Apixaban [Eliquis] 5 mg PO BID 08/26/21 10/23/22 Ergocalciferol [Vitamin D2 (1250 1,250 mcg PO TH 08/26/21 10/23/22 Mcg = 62023 Iu)] Furosemide [Lasix] 20 mg PO DAILY 08/26/21 10/23/22 Levothyroxine Sodium 25 mcg PO DAILY 08/26/21 10/23/22 Pantoprazole [Protonix] 40 mg PO ONCE 08/26/21 10/23/22 Sertraline HCl [Zoloft] 50 mg PO HS 08/26/21 10/23/22 Sucralfate [Carafate] 1 gm PO TID 08/26/21 10/23/22 Evolocumab [Repatha Sureclick] 140 mg SQ Q14D 11/10/21 10/23/22 Losartan Potassium [Cozaar] 25 mg PO DAILY 11/10/21 10/23/22 Magnesium Gluconate [Magonate] 500 mg PO DAILY 11/10/21 10/23/22 Albuterol Inhaler [Ventolin Hfa 1 - 2 puff INHALATION RT-Q6H PRN 07/19/22 10/18/22 Inhaler] Mometasone/Formoterol [Dulera 100 1 puff INHALATION RT-BID PRN 07/19/22 10/23/22 Mcg-5 Mcg Inhaler] Potassium Gluconate 500mg 500 mg PO BID 07/19/22 10/23/22 Previous Rx's Medication Instructions Recorded Metoprolol Tartrate [Lopressor] 50 mg PO BID 30 Days #60 tab 07/20/22 Ipratropium/Albuter 20-100Mcg 1 puff INHALATION QID PRN #1 gm 08/17/22 [Combivent Respimat 20-100Mcg Inhaler] Allergies Allergy/AdvReac Type Severity Reaction Status Date / Time amoxicillin [From Augmentin] Allergy Nausea Verified 05/13/24 12:36 ciprofloxacin [From Cipro] Allergy Rash/Hives Verified 05/13/24 12:36 clarithromycin [From Biaxin] Allergy Nausea & Verified 05/13/24 12:36 Vomiting clavulanic acid Allergy Nausea Verified 05/13/24 12:36 [From Augmentin] levofloxacin [From Levaquin] Allergy Nausea Verified 05/13/24 12:36 milk Allergy Nausea & Verified 05/13/24 12:36 Vomiting nitrofurantoin Allergy Nausea & Verified 05/13/24 12:36 [From Macrobid] Vomiting sulfamethoxazole Allergy Nausea Verified 05/13/24 12:36 [From Bactrim] trimethoprim [From Bactrim] Allergy Nausea Verified 05/13/24 12:36 Tka[place]o-IAT-NoP Reductase AdvReac Unknown Verified 05/13/24 12:36 Inhibitor Sulfa (Sulfonamide AdvReac Nausea Verified 05/13/24 12:36 Antibiotics) Review of Systems ROS Statement: Those systems with pertinent positive or pertinent negative responses have been documented in the HPI. ROS Other: All systems not noted in ROS Statement are negative. Past Medical History Past Medical History: Atrial Fibrillation, Asthma, Coronary Artery Disease (CAD), Hearing Disorder / Deafness, Hyperlipidemia, Hypertension, Myocardial Infarction (IL), Osteoarthritis (OA), Thyroid Disorder Additional Past Medical History / Comment(s): Bronchitis, sinus issues, chronic cervical and back pain, DDD, hypoglycemia, hypothyroid, diverticulitis/bowel resection, bilateral tinnitis, "water retention". pt denies having IL see dr Dennison's H & P Last Myocardial Infarction Date:: 08/26/21 History of Any Multi-Drug Resistant Organisms: None Reported Past Surgical History: Appendectomy, Bladder Surgery, Bowel Resection, Cardiac Ablation, Cholecystectomy, Heart Catheterization, Heart Catheterization With S tent, Hernia Repair, Tubal Ligation Additional Past Surgical History / Comment(s): 08/26/21 PCI with stent, bowel resection d/t diverticulitis, incisional hernia repair x2 with mesh, appendix burst and put hole in bladder/pt had surgery to repair the hole Past Anesthesia/Blood Transfusion Reactions: No Reported Reaction Additional Past Anesthesia/Blood Transfusion Reaction / Comment(s): hard to wake up from anesthesia Date of Last Stent Placement:: 08/26/21 Past Psychological History: Anxiety, Depression Smoking Status: Never smoker Past Alcohol Use History: None Reported Past Drug Use History: None Reported - Past Family History Mother Family Medical History: AFIB, COPD, Hypertension Father Family Medical History: Cancer General Exam Limitations: no limitations General appearance: alert, in no apparent distress Head exam: Present: atraumatic, normocephalic Eye exam: Present: normal appearance, PERRL ENT exam: Present: normal exam Neck exam: Present: normal inspection. Absent: tenderness, meningismus Respiratory exam: Present: normal lung sounds bilaterally. Absent: respiratory distress, wheezes Cardiovascular Exam: Present: normal rhythm, tachycardia GI/Abdominal exam: Present: soft. Absent: distended, tenderness, guarding Extremities exam: Present: normal inspection, normal capillary refill. Absent: calf tenderness Neurological exam: Present: alert, oriented X3 Psychiatric exam: Present: normal affect, normal mood Skin exam: Present: warm, dry, intact Course Vital Signs 05/13/24 05/13/24 12:34 13:28 Temperature 97.4 F L Pulse Rate 145 H 142 H Respiratory 20 18 Rate Blood Pressure 138/92 125/90 O2 Sat by Pulse 95 97 Oximetry Medical Decision Making - Medical Decision Making Was pt. sent in by a medical professional or institution (JAI Crowe, BILLING DEPARTMENT SUPERVISOR, urgent care, hospital, or penitentiary...) When possible be specific @ -No Did you speak to anyone other than the patient for history (EMS, parent, family, police, friend...)? What history was obtained from this source @ -No Did you review nursing and triage notes (agree or disagree)? Why? @ -I reviewed and agree with nursing and triage notes Were old charts reviewed (outside hosp., previous admission, EMS record, old EKG, old radiological studies, urgent care reports/EKG's, penitentiary records)? Report findings @ -No old charts were reviewed Differential Palpitations Ventricular arrhythmias, atrial arrhythmias, myocardial infarction, anemia, thyrotoxicosis, electrolyte imbalance, hypokalemia, pulmonary embolism, pulmonary disease, drugs, alcohol, anxiety, stress.... This is not meant to be an all-inclusive list. EKG interpreted by me (3pts min.). @ -EKG: Atrial flutter with rate of 143, QRS duration 183, QTc [address] segment elevation. X-rays interpreted by me (1pt min.). @ -Chest x-ray negative for acute cardiopulmonary findings CT interpreted by me (1pt min.). @ -None done U/S interpreted by me (1pt. min.). @ -None done What testing was considered but not performed or refused? (CT, X-rays, U/S, labs)? Why? @ -None What meds were considered but not given or refused? Why? @ -None Did you discuss the management of the patient with other professionals (professionals i.e. , PA, BILLING DEPARTMENT SUPERVISOR, lab, RT, psych nurse, social services analyst, laborer poultry hatchery, teacher, home school liaison officer, rifle case repairer)? Give summary @Dr. Boggs Was smoking cessation discussed for >3mins.? @ -No Was critical care preformed (if so, how long)? @ -No Were there social determinants of health that impacted care today? How? (Homelessness, low income, unemployed, alcoholism, drug addiction, transportation, low edu. Level, literacy, decrease access to med. care, senior living, rehab)? @ -No Was there de-escalation of care discussed even if they declined (Discuss DNR or withdrawal of care, Hospice)? DNR status @ -No What co-morbidities impacted this encounter? (DM, HTN, Smoking, COPD, CAD, Cancer, CVA, ARF, Chemo, Hep., AIDS, mental health diagnosis, sleep apnea, morbid obesity)? @ -[History of atrial fibrillation Was patient admitted / discharged? Hospital course, mention meds given and route, prescriptions, significant lab abnormalities, going to OR and other pertinent info. @ -74-year-old female presenting for evaluation of palpitation, found to be in atrial flutter with 2-1 conduction rate between 140 and 150. Patient denies chest pain or dyspnea. Afebrile with otherwise stable vitals. Patient does have a normal CBC, CMP shows hypomagnesemia and the patient additionally has a mildly elevated troponin which I suspect is from elevated heart rate and demand. This level will be trended. The patient is anticoagulated at baseline on Eliquis. She started on Cardizem in the emergency department for rate control. Admitted to internal medicine, Dr. Boggs who is able to see the patient in the emergency department. Cardiology placed on consult. Undiagnosed new problem with uncertain prognosis? @ -[No Drug Therapy requiring intensive monitoring for toxicity (Heparin, Nitro, Insulin, Cardizem)? @ -No Were any procedures done? @ -No Diagnosis/symptom? @ -Atrial flutter with RVR, troponin elevation Acute, or Chronic, or Acute on Chronic? @ -[Acute Uncomplicated (without systemic symptoms) or Complicated (systemic symptoms)? @ -Complicated Side effects of treatment? @ -No Exacerbation, Progression, or Severe Exacerbation? @ -No Poses a threat to life or bodily function? How? (Chest pain, USA, IL, pneumonia, PE, COPD, DKA, ARF, appy, cholecystitis, CVA, Diverticulitis, Homicidal, Suicidal, threat to staff... and all critical care pts) @ yes, arrhythmia - Lab Data Result diagrams: 05/13/24 12:54 05/13/24 12:54 Lab Results 05/13/24 05/13/24 05/13/24 Range/Units 12:54 12:54 12:54 WBC 9.2 (3.8-10.6) k/uL RBC 4.37 (3.80-5.40) m/uL Hgb 13.8 (11.4-16.0) gm/dL Hct 40.8 (34.0-46.0) % MCV 93.5 (80.0-100.0) fL MCH 31.5 (25.0-35.0) pg MCHC 33.7 (31.0-37.0) g/dL RDW 14.4 (11.5-15.5) % Plt Count 331 (150-450) k/uL MPV 8.0 Neutrophils % 75 % Lymphocytes % 18 % Monocytes % 5 % Eosinophils % 1 % Basophils % 0 % Neutrophils # 6.9 (1.3-7.7) k/uL Lymphocytes # 1.6 (1.0-4.8) k/uL Monocytes # 0.4 (0-1.0) k/uL Eosinophils # 0.1 (0-0.7) k/uL Basophils # 0.0 (0-0.2) k/uL PT 10.6 (10.0-12.5) sec INR 1.0 (<1.2) APTT 26.1 (22.0-30.0) sec Sodium 139 (137-145) mmol/L Potassium 3.8 (3.5-5.1) mmol/L Chloride 111 H (98-107) mmol/L Carbon Dioxide 17 L (22-30) mmol/L Anion Gap 11 mmol/L BUN 20 H (7-17) mg/dL Creatinine 0.78 (0.52-1.04) mg/dL Est GFR (CKD-EPI)AfAm 86 (>60 ml/min/1.73 sqM) Est GFR (CKD-EPI)NonAf 74 (>60 ml/min/1.73 sqM) Glucose 154 H (74-99) mg/dL Calcium 9.4 (8.4-10.2) mg/dL Magnesium 1.2 L (1.6-2.3) mg/dL Total Bilirubin 0.6 (0.2-1.3) mg/dL AST 24 (14-36) U/L ALT 19 (4-34) U/L Alkaline Phosphatase 83 (38-126) U/L Troponin I (0.000-0.034) ng/mL Total Protein 6.4 (6.3-8.2) g/dL Albumin 3.8 (3.5-5.0) g/dL 05/13/24 Range/Units 12:54 WBC (3.8-10.6) k/uL RBC (3.80-5.40) m/uL Hgb (11.4-16.0) gm/dL Hct (34.0-46.0) % MCV (80.0-100.0) fL MCH (25.0-35.0) pg MCHC (31.0-37.0) g/dL RDW (11.5-15.5) % Plt Count (150-450) k/uL MPV Neutrophils % % Lymphocytes % % Monocytes % % Eosinophils % % Basophils % % Neutrophils # (1.3-7.7) k/uL Lymphocytes # (1.0-4.8) k/uL Monocytes # (0-1.0) k/uL Eosinophils # (0-0.7) k/uL Basophils # (0-0.2) k/uL PT (10.0-12.5) sec INR (<1.2) APTT (22.0-30.0) sec Sodium (137-145) mmol/L Potassium (3.5-5.1) mmol/L Chloride (98-107) mmol/L Carbon Dioxide (22-30) mmol/L Anion Gap mmol/L BUN (7-17) mg/dL Creatinine (0.52-1.04) mg/dL Est GFR (CKD-EPI)AfAm (>60 ml/min/1.73 sqM) Est GFR (CKD-EPI)NonAf (>60 ml/min/1.73 sqM) Glucose (74-99) mg/dL Calcium (8.4-10.2) mg/dL Magnesium (1.6-2.3) mg/dL Total Bilirubin (0.2-1.3) mg/dL AST (14-36) U/L ALT (4-34) U/L Alkaline Phosphatase (38-126) U/L Troponin I 0.058 H* (0.000-0.034) ng/mL Total Protein (6.3-8.2) g/dL Albumin (3.5-5.0) g/dL Critical Care Time Critical Care Time: Yes Total Critical Care Time: 35 Disposition Clinical Impression: Atrial flutter Disposition: ADMITTED IP TO THIS HOSP Condition: Stable Is patient prescribed a controlled substance at d/c from ED?: No Referrals: Yash Suazo DO [Primary Care Provider] - 1-2 days Time of Disposition: 13:51
[2024-05-13 13:06] LABS: Basophils % (A) 0 %; Eosinophils # (A) 0.1 k/uL (0-0.7); Eosinophils % (A) 1 %; HCT 40.8 % (34.0-46.0); HGB 13.8 gm/dL (11.4-16.0); Lymphocytes # (A) 1.6 k/uL (1.0-4.8); Lymphocytes % (A) 18 %; MCH 31.5 pg (25.0-35.0); MCHC 33.7 g/dL (31.0-37.0); MCV 93.5 fL (80.0-100.0); Monocytes # (A) 0.4 k/uL (0-1.0); Monocytes % (A) 5 %; Neutrophils # (A) 6.9 k/uL (1.3-7.7); Neutrophils % (A) 75 %; Platelet Count 331 k/uL (150-450); RBC 4.37 m/uL (3.80-5.40); RDW 14.4 % (11.5-15.5); WBC 9.2 k/uL (3.8-10.6)
[2024-05-13 13:18] LABS: ALT 19 U/L (4-34); AST 24 U/L (14-36); African American GFR (CKD) 86 (>60 ml/min/1.73 sqM); Albumin 3.8 g/dL (3.5-5.0); Alkaline Phosphatase 83 U/L (38-126); Anion Gap 11 mmol/L; Blood Urea Nitrogen 20 mg/dL (7-17); Calcium 9.4 mg/dL (8.4-10.2); Carbon Dioxide 17 mmol/L (22-30); Chloride 111 mmol/L (98-107); Glucose 154 mg/dL (74-99); Magnesium 1.2 mg/dL (1.6-2.3); Non-African American GFR(CKD) 74 (>60 ml/min/1.73 sqM); Potassium 3.8 mmol/L (3.5-5.1); Sodium 139 mmol/L (137-145); Total Bilirubin 0.6 mg/dL (0.2-1.3); Total Protein 6.4 g/dL (6.3-8.2)
[2024-05-13 13:24] LABS: Partial Thromboplastin Time 26.1 sec (22.0-30.0); Prothrombin Time 10.6 sec (10.0-12.5)
[2024-05-13] MEDS: DILTIAZEM DRIP BOLUS FROM BAG 1 MG SOLN IV ONE (13:25)
[2024-05-13] MEDS: DILTIAZEM 125 MG in SODIUM CHLORIDE 0.9% 100 ML IV SCH (13:26)
[2024-05-13] MEDS ORDERED: NALOXONE 0.4 MG/ML 1 ML VIAL IV PRN (13:45)
[2024-05-13] MEDS: MAGNESIUM SULFATE-D5W PMX 1 GM in DEXTROSE/WATER 1 100ML.BAG IVPB SCH (14:06)
[2024-05-13] MEDS: SODIUM CHLORIDE 0.9% 1,000 ML IV ONE (14:11)
--- NOTE | 2024-05-13 14:20 | XR ---
EXAMINATION TYPE: XR chest 2V DATE OF EXAM: 05/13/2024 COMPARISON: 11/22/2022 HISTORY: 74-year-old female dysrhythmia TECHNIQUE: AP and lateral views FINDINGS: Heart normal size. Aorta and pulmonary vasculature within normal limits. Similar prominent right ante rior fourth rib and projecting in the right lower lung. Suspect bilateral full-thickness chronic rota tor cuff tears. No new consolidation or pleural effusion. [facility] mid and lower thoracic spine. IMPRESSION: Chronic changes without definite acute process. [facility], , 05/13/2024 2:18 PM
[2024-05-13 16:34] LABS: Glucose,Whole Blood 117 mg/dL (70-110)
[2024-05-13] MEDS: SODIUM CHLORIDE 0.9% 1,000 ML IV SCH (16:45)
[2024-05-13] MEDS: APIXABAN 5 MG TAB PO SCH (20:02)
[2024-05-13] MEDS: SERTRALINE 50 MG TAB PO SCH (20:02)
--- NOTE | 2024-05-13 20:23 | HP ---
HISTORY AND PHYSICAL CHIEF COMPLAINT: Palpitation. HISTORY OF PRESENT ILLNESS: This is a 74-year-old woman with a past medical history of multiple medical problems including atrial fibrillation with ablation, being followed by Dr. Suazo and Dr. Silva in the outpatient setting complaining of palpitation. The patient came to [facility]. Heart rate was 143 with atrial flutter with possibly 2:1 block and the patient was admitted for further evaluation and treatment. There is no history of any fever, rigors, or chills at this time. PAST MEDICAL HISTORY: Reviewed include asthma, atrial fibrillation, dose and rest of medications reviewed. ALLERGIES: Amoxicillin, rest of the allergies noted. FAMILY HISTORY: History of atrial fibrillation, COPD. SOCIAL HISTORY: No history of smoking. REVIEW OF SYSTEMS: Fourteen-point review is negative except as mentioned earlier. PHYSICAL EXAMINATION: VITAL SIGNS: Pulse is 142, irregular. Blood pressure 130/90, respirations 18. HEENT: Conjunctivae normal. CARDIOVASCULAR: S1, S2, irregular. RESPIRATIONS: Breath sounds diminished at the bases. ABDOMEN: Soft, nontender. LEGS: No edema. NERVOUS SYSTEM: Nonfocal. LABORATORY DATA: Reviewed. ASSESSMENT: 1. Atrial flutter with a 2:1 AV block. 2. History of atrial fibrillation ablation. 3. History of coronary artery disease stent. 4. Hypertension. 5. Hyperlipidemia. 6. Multiple complex medical issues. RECOMMENDATIONS AND DISCUSSION: This is a 74-year-old woman, who presented with multiple complex medical issues, we will monitor the patient closely. Continue the current management and continue symptomatic treatment. We will initiate Cardizem. Cardiology consultation. Full cardiovascular workup including troponin. Otherwise, we will continue to monitor. Guarded prognosis. Further recommendations to follow. See orders for further details. We will repeat a 2D echo also. The previous 2D echo showed some hypokinesis. MMODL / IJN: [id number] /
[2024-05-13] MEDS: ACETAMINOPHEN TAB 325 MG TAB PO PRN (23:03)
[2024-05-14 07:36] LABS: Basophils % (A) 0 %; Eosinophils # (A) 0.1 k/uL (0-0.7); Eosinophils % (A) 1 %; HCT 37.1 % (34.0-46.0); HGB 11.9 gm/dL (11.4-16.0); Lymphocytes # (A) 1.6 k/uL (1.0-4.8); Lymphocytes % (A) 20 %; MCH 30.8 pg (25.0-35.0); MCHC 32.1 g/dL (31.0-37.0); MCV 95.9 fL (80.0-100.0); Mean Platelet Volume 7.8; Monocytes # (A) 0.5 k/uL (0-1.0); Monocytes % (A) 6 %; Neutrophils # (A) 5.7 k/uL (1.3-7.7); Neutrophils % (A) 70 %; Platelet Count 282 k/uL (150-450); RBC 3.86 m/uL (3.80-5.40); RDW 14.1 % (11.5-15.5); WBC 8.1 k/uL (3.8-10.6)
[2024-05-14 07:54] LABS: African American GFR (CKD) >90 (>60 ml/min/1.73 sqM); Anion Gap 2 mmol/L; Blood Urea Nitrogen 16 mg/dL (7-17); Calcium 8.5 mg/dL (8.4-10.2); Carbon Dioxide 28 mmol/L (22-30); Chloride 110 mmol/L (98-107); Glucose 91 mg/dL (74-99); Non-African American GFR(CKD) 81 (>60 ml/min/1.73 sqM); Potassium 4.1 mmol/L (3.5-5.1); Sodium 140 mmol/L (137-145)
[2024-05-14] MEDS: METOPROLOL SUCCINATE (ER) 50 MG TAB.ER.24H PO SCH (11:28)
[2024-05-14] MEDS: EZETIMIBE 10 MG TAB PO SCH (11:29)
[2024-05-14] MEDS: ASPIRIN 81 MG PO SCH (12:12)
[2024-05-14] MEDS ORDERED: TIOTROPIUM 2.5 MCG INHALER INHALATION PRN (12:51)
--- NOTE | 2024-05-14 12:52 | CDI ---
Documentation Clarification Form Date: 05/13/2024 From: Meagan Romero RN CCDS Phone: [phone] Admit Date: 05/13/2024 01:46:00 PM Patient Name: Evelia Dhaliwal Visit Number: [id number] Discharge Date: ATTENTION: The Clinical Documentation Specialists (CDI) and [facility] Coding Staff appreciate your assistance in clarifying documentation. Please respond to the clarification below the line at the bottom and electronically sign. The CDI & [facility] Coding staff will review the response and follow-up if needed. Please note: Queries are made part of the Legal Health Record. If you have any questions, please contact the author of this message via ITS. Doctor/Provider: Mohsen Boggs MD: Patient has a documented BMI of 41.8 on 05/13. Additional clarification is requested. History/Risk Factors: 74-year-old female with a history of CAD, HTN, Afib with ablation who presents with palpitations Clinical Indicators: 05/13 Patients weight is 115.212kg Patients height is 5ft 5in Calculated BMI is 41.8 Treatments: Healthy Heart Diet Please clarify if patients BMI indicates an additional diagnosis: [ ] Morbid (Extreme) (severe) obesity [ ] No additional diagnosis/not clinically significant [ ] Other, please specify ____ [ ] Unable to determine Morbid obesity Reference: NIH Classification for BMI Overweight BMI 2529.9 Obesity (Class 1) BMI 3034.9 Obesity (Class 2) BMI 3539.9 Morbid obesity (Class 3/Extreme/severe) BMI =40 MTDD
[2024-05-14] MEDS: MEDROXYPROGESTERONE ACETATE PO SCH (13:43)
[2024-05-14] MEDS: CONJUGATED ESTROGENS PO SCH (13:43)
[2024-05-14] MEDS: AMIODARONE 200 MG TAB PO SCH (14:05)
[2024-05-14] MEDS: SUCRALFATE 1 GM TAB PO SCH (15:02)
[2024-05-14] MEDS: FUROSEMIDE 20 MG TAB PO SCH (15:03)
[2024-05-14] MEDS: LEVOTHYROXINE 25 MCG TAB PO SCH (15:03)
--- NOTE | 2024-05-14 15:39 | P.CRDCN ---
History of Present Illness Consult date: 05/14/24 History of present illness: HISTORY OF PRESENTING ILLNESS Patient is a 74-year-old female with PMH of CAD status post PCI to RCA in 2021, atrial flutter status post ablation procedure in 2022, hypertension, dyslipidemia, obesity, statin intolerance, hypothyroidism, presents to the hospital because of symptoms of fluttering sensation in the chest. Patient reports since ablation in 2022 she has not had the symptoms until recently. She had a Lexiscan stress test in October 2023 which did not show any reversible or fixed perfusion defect with a preserved LV systolic function. This was ordered because patient was complaining of some substernal chest heaviness and shortness of breath. At this time patient denies having any active chest pain chest pressure. She de nies having any lightheadedness or dizziness. Her primary symptoms are palpitation. On admission to ER she was noticed to be in atrial flutter with RVR. She was started on Cardizem drip and that control her heart rate. She has been on anticoagulation with Eliquis. REVIEW OF SYSTEMS 14 point review of system is negative except what is mentioned above in HPI. PHYSICAL EXAMINATION Vital signs reviewed. Head: Normocephalic. Eyes: Sclerae nonicteric. Neck: Brisk carotid upstroke, no jugular venous distention. Lungs: Diminished breath sounds due to poor respiratory, however no significant crackles or ronchi Heart: Irregularly irregular pulse, S1-S2, no S3, no murmur or rub. Abdomen: Soft nontender, positive bowel sounds. Extremities: 1+ pitting edema bilateral lower extremity Neuro: Alert, oritented, no focal deficits. Detailed neuro exam was not performed. ASSESSMENT Atrial flutter with RVR, currently rate controlled Prior history of atrial flutter status post [place] [address] Dennison CAD status post PCI to RCA in 2021 Prior history of cardiomyopathy with a EF of 40%, currently euvolemic Prior history of shortness of breath and fatigue Hypertension Dyslipidemia with statin intolerance PLAN Continue Eliquis 5 mg twice daily, aspirin 81 mg (for prior CAD). Lipitor 40 mg daily. Zetia 10 mg daily She is on Lasix 20 mg daily. I will discontinue this and start Farxiga 10 mg daily instead She was on metoprolol 12.5 mg twice daily at home. I will increase it to 50 mg twice daily She was on losartan 50 mg at home. I will reduce it to 25 mg daily If patient is rate controlled tomorrow, I anticipate discharge. Goal is to give her rate control and control her symptoms. She would eventually need rhythm control with a repeat ablation. I will have Dr. Silva to evaluate this. She would also benefit from GDMT for HFrEF and mild cardiomyopathy which would inclu de SGLT2 and MRA. Jeremy Alvarez MD, FACC, RPVI Thank you for allowing [facility] to participate in this patient's care. Feel free to reach out in case of any followup questions. Past Medical History Past Medical History: Atrial Fibrillation, Asthma, Coronary Artery Disease (CAD), Hearing Disorder / Deafness, Hyperlipidemia, Hypertension, Myocardial Infarction (AR), Osteoarthritis (OA), Thyroid Disorder Additional Past Medical History / Comment(s): Bronchitis, sinus issues, chronic cervical and back pain, DDD, hypoglycemia, hypothyroid, diverticulitis/bowel resection, bilateral tinnitis, "water retention". pt denies having AR see dr Dennison's H & P, Last Myocardial Infarction Date:: 08/26/21 History of Any Multi-Drug Resistant Organisms: None Reported Past Surgical History: Ablation, Appendectomy, Bladder Surgery, Bowel Resection, Cardiac Ablation, Cholecystectomy, Heart Catheterization, Heart Catheterization With Stent, Hernia Repair, Tubal Ligation Additional Past Surgical History / Comment(s): 08/26/21 PCI with stent, bowel resection d/t diverticulitis, incisional hernia repair x2 with mesh, appendix burst and put hole in bladder/pt had surgery to repair the hole Past Anesthesia/Blood Transfusion Reactions: No Reported Reaction Additional Past Anesthesia/Blood Transfusion Reaction / Comment(s): hard to wake up from anesthesia Date of Last Stent Placement:: 08/26/21 Past Psychological History: Anxiety, Depression Additional Psychological History / Comment(s): Pt resides with her spouse. She is independent. Smoking Status: Never smoker Past Alcohol Use History: None Reported Past Drug Use History: None Reported - Past Family History Mother Family Medical History: AFIB, COPD, Hypertension Father Family Medical History: Cancer Medications and Allergies Home Medications Medication Instructions Recorded Confirmed Type Apixaban [Eliquis] 5 mg PO BID 08/26/21 05/13/24 History Furosemide [Lasix] 20 mg PO DAILY 08/26/21 05/13/24 History Levothyroxine Sodium 25 mcg PO DAILY 08/26/21 05/13/24 History Pantoprazole [Protonix] 40 mg PO DAILY 08/26/21 05/13/24 History Sertraline HCl [Zoloft] 50 mg PO HS 08/26/21 05/13/24 History Sucralfate [Carafate] 1 gm PO TID 08/26/21 05/13/24 History Evolocumab [Repatha Sureclick] 140 mg SQ Q14D 11/10/21 05/13/24 History Magnesium Gluconate [Magonate] 500 mg PO DAILY 11/10/21 05/13/24 History Potassium Gluconate 500mg 500 mg PO BID 07/19/22 05/13/24 History Estrogen,Con/M-Progest Acet 1 tab PO DAILY 05/13/24 05/13/24 History [Prempro 0.3 mg-1.5 mg Tablet] Losartan [Cozaar] 75 mg PO DAILY 05/13/24 05/13/24 History Metoprolol Tartrate [Lopressor] 12.5 mg PO DAILY 05/13/24 05/13/24 History Tiotropium 2.5 Mcg/Puff [Spiriva 1 puff INHALATION RT-DAILY PRN 05/13/24 05/13/24 History Respimat 2.5 Mcg] Allergies Allergy/AdvReac Type Severity Reaction Status Date / Time amoxicillin [From Augmentin] Allergy Nausea Verified 05/13/24 14:07 ciprofloxacin [From Cipro] Allergy Rash/Hives Verified 05/13/24 14:07 clarithromycin [From Biaxin] Allergy Nausea & Verified 05/13/24 14:07 Vomiting clavulanic acid Allergy Nausea Verified 05/13/24 14:07 [From Augmentin] levofloxacin [From Levaquin] Allergy Nausea, Verified 05/13/24 14:07 lethargy milk Allergy Nausea & Verified 05/13/24 14:07 Vomiting nitrofurantoin Allergy Nausea & Verified 05/13/24 14:07 [From Macrobid] Vomiting sulfamethoxazole Allergy Nausea Verified 05/13/24 14:07 [From Bactrim] trimethoprim [From Bactrim] Allergy Nausea Verified 05/13/24 14:07 [id number]-MsG Reductase AdvReac Nausea & Verified 05/13/24 14:07 Inhibitor Vomiting, dizziness Sulfa (Sulfonamide AdvReac Nausea Verified 05/13/24 14:07 Antibiotics) Physical Exam Vitals: Vital Signs Temp Pulse Pulse Resp BP BP Pulse Ox 05/14/24 15:03 83 16 117/77 96 05/14/24 11:30 149 H 17 124/79 97 05/14/24 07:52 98.1 F 113 H 17 122/73 97 05/14/24 04:00 97.7 F 116 H 17 110/78 98 05/13/24 23:38 104 H 16 144/62 97 05/13/24 20:00 98.1 F 96 18 139/79 99 05/13/24 18:48 138 H 16 139/84 98 05/13/24 18:00 92 16 128/94 99 05/13/24 17:30 86 18 136/73 99 05/13/24 16:30 107 H 16 112/84 97 Intake and Output 05/14/24 05/14/24 05/14/24 06:59 14:59 22:59 Intake Total 115.333 120 Balance 115.333 120 Intake: Intake, IV Titration 115.333 Amount Diltiazem 125 mg In 115.333 Sodium Chloride 0.9% 100 ml @ 5 MG/HR 5 mls/hr IV .Q24H [facility] Rx#:[id number] Oral 120 Other: Voiding Method Toilet Toilet # Voids 2 Weight 114 kg Results 05/14/24 06:34 05/14/24 06:34 Cardiac Enzymes 05/13/24 05/13/24 Range/Units 15:35 18:19 Troponin I 0.074 H* 0.087 H* (0.000-0.034) ng/mL CBC 05/14/24 Range/Units 06:34 WBC 8.1 (3.8-10.6) k/uL RBC 3.86 (3.80-5.40) m/uL Hgb 11.9 (11.4-16.0) gm/dL Hct 37.1 (34.0-46.0) % Plt Count 282 (150-450) k/uL Comprehensive Metabolic Panel 05/14/24 Range/Units 06:34 Sodium 140 (137-145) mmol/L Potassium 4.1 (3.5-5.1) mmol/L Chloride 110 H (98-107) mmol/L Carbon Dioxide 28 (22-30) mmol/L BUN 16 (7-17) mg/dL Creatinine 0.73 (0.52-1.04) mg/dL Glucose 91 (74-99) mg/dL Calcium 8.5 (8.4-10.2) mg/dL Current Medications Generic Name Dose Route Start Last Admin Trade Name Freq PRN Reason Stop Dose Admin Acetaminophen 650 mg 05/13/24 13:45 05/13/24 23:03 Acetaminophen Tab 325 Mg Tab PO 650 mg Q6HR PRN Administration Mild Pain or Fever > 100.5 Apixaban 5 mg 05/13/24 21:00 05/14/24 07:53 Apixaban 5 Mg Tab PO 5 mg BID [facility] Administration Protocol Aspirin 81 mg 05/14/24 11:15 05/14/24 12:12 Aspirin 81 Mg PO Not Given DAILY [facility] Atorvastatin Calcium 40 mg 05/14/24 21:00 Atorvastatin 40 Mg Tab PO HS [facility] Ezetimibe 10 mg 05/14/24 11:15 05/14/24 11:29 Ezetimibe 10 Mg Tab PO 10 mg DAILY [facility] Administration Diltiazem HCl 125 mg/ Sodium 125 mls @ 5 mls/hr 05/13/24 13:30 05/14/24 01:40 Chloride IV 10 mg/hr .Q24H [facility] 10 mls/hr Administration 5 MG/HR Levothyroxine Sodium 25 mcg 05/14/24 13:00 05/14/24 15:03 Levothyroxine 25 Mcg Tab PO 25 mcg DAILY@0630 [facility] Administration Losartan Potassium 25 mg 05/15/24 09:00 Losartan 25 Mg Tab PO DAILY [facility] Magnesium Oxide 400 mg 05/15/24 09:00 Magnesium Oxide 400 Mg Tab PO DAILY [facility] Metoprolol Succinate 50 mg 05/14/24 10:45 05/14/24 11:28 Metoprolol Succinate (Er) 50 Mg Tab.Er.24h PO 50 mg BID [facility] Administration Naloxone HCl 0.2 mg 05/13/24 13:45 Naloxone 0.4 Mg/Ml 1 Ml Vial IV Q2M PRN Opioid Reversal Estrogen,Con/M- 1 tab 05/14/24 13:00 05/14/24 13:43 Progest Acet [ PO Not Given Prempro 0.3 Mg-1.5 DAILY [facility] Mg Tablet] 1 Each Tabl Pantoprazole Sodium 40 mg 05/15/24 07:30 Pantoprazole 40 Mg Tablet PO DAILY@0730 [facility] Sertraline HCl 50 mg 05/13/24 21:00 05/13/24 20:02 Sertraline 50 Mg Tab PO 50 mg HS [facility] Administration Sucralfate 1 gm 05/14/24 16:00 05/14/24 15:02 Sucralfate 1 Gm Tab PO 1 gm TID [facility] Administration Tiotropium [place] 2 puff 05/14/24 12:51 Tiotropium 2.5 Mcg Inhaler INHALATION RT-DAILY PRN Shortness Of Breath Intake and Output 05/14/24 05/14/24 05/14/24 06:59 14:59 22:59 Intake Total 115.333 120 Balance 115.333 120 Intake: Intake, IV Titration 115.333 Amount Diltiazem 125 mg In 115.333 Sodium Chloride 0.9% 100 ml @ 5 MG/HR 5 mls/hr IV .Q24H [facility] Rx#:[id number] Oral 120 Other: Voiding Method Toilet Toilet # Voids 2 Weight 114 kg 05/14/24 06:34 05/14/24 06:34
[2024-05-14 18:41] LABS: Chol/HDL Ratio 2.94 Ratio; LDL Cholesterol,Calculated 71.5 mg/dL (0.0-131.0)
[2024-05-14] MEDS: ATORVASTATIN 40 MG TAB PO SCH (19:57)
[2024-05-14] MEDS ORDERED: POTASSIUM GLUCONATE 500 MG PO SCH (21:00)
--- NOTE | 2024-05-15 00:47 | PN ---
PROGRESS NOTE DATE OF SERVICE: 05/14/2024 SUBJECTIVE: This is a 74-year-old woman who was admitted with atrial flutter with 2:1 AV block, is being closely monitored. No chest pain. No palpitation. Amiodarone has been recommended by Cardiology. OBJECTIVE: VITAL SIGNS: Pulse is 149, blood pressure 124/76, respirations 17. CHEST: Clear to auscultation. CARDIOVASCULAR: S1, S2, tachycardic. LABORATORY DATA: Reviewed. ASSESSMENT: 1. Atrial flutter with 2:1 AV block with fast ventricular rate. 2. History of atrial flutter ablation. 3. History of coronary artery disease stent. 4. Hypertension. 5. Troponin 0.087. 6. Hyperlipidemia. 7. Multiple complex medical issues. RECOMMENDATIONS: Recommend to continue current management and continue symptomatic treatment. Otherwise, at this time, we will closely follow with Cardiology. Repeat labs in the morning. Amiodarone. Guarded prognosis. Further recommendations to follow. MMODL / IJN: [id number] /
[2024-05-15 06:30] LABS: Basophils % (A) 0 %; Eosinophils # (A) 0.1 k/uL (0-0.7); Eosinophils % (A) 2 %; HCT 35.4 % (34.0-46.0); HGB 11.3 gm/dL (11.4-16.0); Hypochromasia Slight; Lymphocytes # (A) 1.5 k/uL (1.0-4.8); Lymphocytes % (A) 20 %; MCHC 31.9 g/dL (31.0-37.0); Mean Platelet Volume 7.5; Monocytes # (A) 0.4 k/uL (0-1.0); Monocytes % (A) 6 %; Neutrophils # (A) 4.9 k/uL (1.3-7.7); Neutrophils % (A) 68 %; Platelet Count 246 k/uL (150-450); RBC 3.65 m/uL (3.80-5.40); RDW 14.2 % (11.5-15.5); WBC 7.2 k/uL (3.8-10.6)
[2024-05-15] MEDS: PANTOPRAZOLE 40 MG TABLET PO SCH (06:35)
[2024-05-15 07:32] LABS: African American GFR (CKD) >90 (>60 ml/min/1.73 sqM); Anion Gap 8 mmol/L; Blood Urea Nitrogen 18 mg/dL (7-17); Calcium 8.5 mg/dL (8.4-10.2); Carbon Dioxide 20 mmol/L (22-30); Chloride 112 mmol/L (98-107); Glucose 92 mg/dL (74-99); Non-African American GFR(CKD) 86 (>60 ml/min/1.73 sqM); Potassium 3.9 mmol/L (3.5-5.1); Sodium 140 mmol/L (137-145)
[2024-05-15] MEDS ORDERED: LOSARTAN 50 MG TAB PO SCH (09:00)
[2024-05-15] MEDS: LOSARTAN 25 MG TAB PO SCH (09:04)
[2024-05-15] MEDS: MAGNESIUM OXIDE 400 MG TAB PO SCH (09:04)
[2024-05-15] MEDS: DAPAGLIFLOZIN PROPANEDIOL 10 MG TABLET PO SCH (09:04)
--- NOTE | 2024-05-15 12:44 | P.PN ---
Subjective Progress Note Date: 05/15/24 Principal diagnosis: HPI: [This lady has history of CAD prior PCI of right coronary artery in 2021, atrial flutter with ablation in 2022, hypertension hyperlipidemia and hypothyroidism. She presented to the hospital with a fluttering sensation was found to be in atrial flutter with a moderately rapid ventricular rate. Placed on a intravenous Cardizem drip and her rate has improved to the 80s. She is resting comfortably. The plan would be to control the rate and possibly di scharge her and have her see Dr. Philip for a possible reevaluation and may require another EP study possible ablation. Explained this to the patient. We will decrease the intravenous Cardizem and place her on metoprolol tartrate 50 mg 3 times daily check a thyroid function test. Patient actually feels better]. PHYSICIAL EXAM: [Vitals are stable S1-S2 heard normally irregularity noted lungs reveal decent air entry abdomen is soft the lower extremities reveal diminished pulses Central nervous system is normal]. IMPRESSION: 1. [Atrial flutter with a rapid rate now the rate has been controlled. She had ablation in 2022 will need follow-up with EP]. 2. [CAD prior PCI in 2021]. 3. [Benign hypertension]. 4. [Hypercholesterolemia]. 5. [Hypothyroidism]. RECOMMENDATIONS: [Optimize rate control continue anticoagulation if rate is well-controlled possible discharge tomorrow and follow-up with primary cdl bulk driver Dr. Silva and also Dr. Philip. Discussed with patient]. Objective - Vital Signs Vital signs: Vital Signs Temp 97.8 F 05/15/24 08:00 Pulse 72 05/15/24 12:00 Resp 18 05/15/24 12:00 BP 112/73 05/15/24 12:00 Pulse Ox 97 05/15/24 12:00 FiO2 Intake & Output 05/14/24 05/15/24 05/15/24 18:59 06:59 18:59 Intake Total 245 239.667 Output Total 300 Balance 245 -300 239.667 Intake: Intake, IV Titration 125 119.667 Amount Diltiazem 125 mg In 125 119.667 Sodium Chloride 0.9% 100 ml @ 5 MG/HR 5 mls/hr IV .Q24H [facility] Rx#:[id number] Oral 120 120 Output: Urine 300 Other: Voiding Method Toilet Toilet # Voids 2 - Labs CBC & Chem 7: 05/15/24 06:08 05/15/24 06:08 Labs: Abnormal Lab Results - Last 24 Hours (Table) 05/14/24 05/15/24 05/15/24 Range/Units 06:34 06:08 06:08 RBC 3.65 L (3.80-5.40) m/uL Hgb 11.3 L (11.4-16.0) gm/dL Chloride 112 H (98-107) mmol/L Carbon Dioxide 20 L (22-30) mmol/L BUN 18 H (7-17) mg/dL Triglycerides 167.00 H (0.00-149.00) mg/dL
--- NOTE | 2024-05-15 15:13 | P.PN ---
Subjective Progress Note Date: 05/15/24 This is a very pleasant 74-year-old female who was recently admitted with atrial fibrillation with RVR being closely monitored with cardiology following. Patient was started on amiodarone and continues to have persistent atrial fibrillation and will continue Cardizem at 5 mg and is being started on meto prolol recommending continuing telemetry monitoring and monitoring overnight for improvements and rate control. Patient is with history of ablation in the previous year and will need outpatient follow-up with the EP Dr. Dennison for further evaluation. Patient follows with Dr. Silva outpatient and will follow-up in the outpatient setting. Patient is afebrile and reports to feeling somewhat improved. Continued encouragement on increased activity as tolerated. Review of systems: Constitutional: No reports of fatigue, fever, or chills Cardiovascular: No reports of chest pain, reports occasional palpitations although feeling somewhat improved Respiratory: No reports of shortness of breath or cough GI: No reports of nausea, no reports of vomiting, no diarrhea : No reports of dysuria or retention Neurovascular: No reports of generalized weakness All medications have been reviewed PHYSICAL EXAMINATION: GENERAL: The patient is alert and oriented x4, Well developed, well nourished. Morbidly obese, elderly appearing HEENT: Pupils are round and equally reacting to light. EOMI. no scleral icterus. No conjunctival pallor. Normocephalic, atraumatic. No pharyngeal erythema. No thyromegaly. CARDIOVASCULAR: S1 and S2 muffled PULMONARY: diminished breath sounds bilaterally with no wheezing or rhonchi noted. ABDOMEN: soft. Nontender on exam. obese. non-distended, normoactive bowel sounds. No palpable organomegaly. MUSCULOSKELETAL: No joint swelling or deformity. EXTREMITIES: No cyanosis, clubbing, or pedal edema. NEUROLOGICAL: Gross neurological examination did not reveal any focal deficits. Diffuse weakness SKIN: No rashes. Assessment: Atrial flutter with 2-1 AV block with fast ventricular rate history of atrial flutter ablation History of coronary artery disease with stenting Hypertension history Troponin 0.087 likely secondary to assessment #1 Hyperlipidemia Morbid obesity with a BMI of 41.8 GI prophylaxis DVT prophylaxis Full code Plan: Recommend to continue with current medications and management with cardiology following closely. Patient is continued on telemetry monitoring not currently rate controlled maintained on IV Cardizem. Rate is decreased to 5 per cardiology and patient is being started on metoprolol 3 times daily and recommend monitoring overnight with possible discharge planning in the next 24 hours Patient reports to feeling somewhat improved and encouraged the patient increase activity as tolerated Patient will need outpatient follow-up with her primary senior technical editor Dr. Silva as well as Dr. Dennison for further EP studies and possible further ablation Will continue to monitor and discussed possible discharge planning in the next 24 hours. Overall prognosis is guarded at this time The impression and plan of care has been dictated by Kayli Parrish, nurse practitioner as directed. Dr. Ambrose MD I have performed a history and examination and MDM of this patient, discussed the same with the dictator, and agree with the dictator's assessment and plan as written ,documented as a scribe. Based on total visit time, I have performed more than 50% of the visit. Any additional findings or plans will be noted. Objective - Vital Signs Vital signs: Vital Signs Temp 97.8 F 05/15/24 08:00 Pulse 71 05/15/24 08:00 Resp 18 05/15/24 08:00 BP 128/73 05/15/24 08:00 Pulse Ox 95 05/15/24 08:09 FiO2 Intake & Output 05/14/24 05/15/24 05/15/24 18:59 06:59 18:59 Intake Total 245 226.667 Output Total 300 Balance 245 -300 226.667 Intake: Intake, IV Titration 125 106.667 Amount Diltiazem 125 mg In 125 106.667 Sodium Chloride 0.9% 100 ml @ 5 MG/HR 5 mls/hr IV .Q24H [facility] Rx#:[id number] Oral 120 120 Output: Urine 300 Other: Voiding Method Toilet Toilet # Voids 2 - Labs CBC & Chem 7: 05/15/24 06:08 05/15/24 06:08 Labs: Abnormal Lab Results - Last 24 Hours (Table) 05/14/24 05/15/24 05/15/24 Range/Units 06:34 06:08 06:08 RBC 3.65 L (3.80-5.40) m/uL Hgb 11.3 L (11.4-16.0) gm/dL Chloride 112 H (98-107) mmol/L Carbon Dioxide 20 L (22-30) mmol/L BUN 18 H (7-17) mg/dL Triglycerides 167.00 H (0.00-149.00) mg/dL
[2024-05-15] MEDS: METOPROLOL TARTRATE 50 MG TAB PO SCH (16:18)
[2024-05-16 09:36] VITALS: TEMP 97.8
[2024-05-16] MEDS ORDERED: MIDAZOLAM 2 MG/2 ML VIAL IV PRN (09:43)
[2024-05-16] MEDS ORDERED: fentaNYL (PF) 50 MCG/ML 2 ML AMP IVP PRN (09:43)
[2024-05-16] MEDS ORDERED: BENZOCAINE SPRAY 1 CAN TOPICAL PRN (09:43)
--- NOTE | 2024-05-16 10:46 | P.PN ---
Subjective Progress Note Date: 05/16/24 Principal diagnosis: HPI: [This lady has history of CAD prior PCI of right coronary artery in 2021, atrial flutter with ablation in 2022, hypertension hyperlipidemia and hypothyroidism. She presented to the hospital with a fluttering sensation was found to be in atrial flutter with a moderately rapid ventricular rate. Placed on a intravenous Cardizem drip and her rate has improved to the 80s. She is resting comfortably. The plan would be to control the rate and possibly di scharge her and have her see Dr. Philip for a possible reevaluation and may require another EP study possible ablation. Explained this to the patient. We will decrease the intravenous Cardizem and place her on metoprolol tartrate 50 mg 3 times daily check a thyroid function test. Patient actually feels better]. PHYSICIAL EXAM: [Vitals are stable S1-S2 heard normally irregularity noted lungs reveal decent air entry abdomen is soft the lower extremities reveal diminished pulses Central nervous system is normal]. IMPRESSION: 1. [Atrial flutter with a rapid rate now the rate has been controlled. She had ablation in 2022 will need follow-up with EP]. 2. [CAD prior PCI in 2021]. 3. [Benign hypertension]. 4. [Hypercholesterolemia]. 5. [Hypothyroidism]. RECOMMENDATIONS: [Optimize rate control continue anticoagulation if rate is well-controlled possible discharge tomorrow and follow-up with primary truck farmer Dr. Silva and also Dr. Philip. Discussed with patient]. HPI:. HPI: This lady has history of CAD prior PCI of right coronary artery in 2021, atrial flutter with ablation in 2022, hypertension hyperlipidemia and hypothyroidism. She presented to the hospital with a fluttering sensation was found to be in atrial flutter with a moderately rapid ventricular rate. Placed on a intravenous Cardizem drip and her rate has improved to the 80s. She is resting comfortably. The plan would be to control the rate and possibly discharge her and have her see Dr. Philip for a possible reevaluation and may require another EP study possible ablation. Explained this to the patient. We will decrease the intravenous Cardizem and place her on metoprolol tartrate 50 mg 3 times daily check a thyroid function test. Patient actually feels better. PHYSICIAL EXAM: Vitals are stable S1-S2 heard normally irregularity noted lungs reveal decent air entry abdomen is soft the lower extremities reveal diminished pulses Central nervous system is normal. IMPRESSION: 1. Atrial flutter with a rapid rate now the rate has been controlled. She had ablation in 2022 will need follow-up with EP. 2. CAD prior PCI in 2021. 3. Benign hypertension. 4. Hypercholesterolemia. 5. Hypothyroidism. PHYSICIAL EXAM: Vitals are stable S1-S2 with a regular in rhythm lungs reveal decent air entry abdomen is soft lower extremities reveal diminished pulses in central nervous system is normal. RECOMMENDATIONS: This lady has history of CAD with prior PCI also has atrial flutter. At rest the rate is in the 90s but with ambulation it goes up to 140 bpm. Patient has been consistently well anticoagulated on Eliquis 5 mg twice daily. I am recommending electrical cardioversion I spoke to the patient she understands and is agreeable as she is fully aware of rationale risks benefits and options. I spoke to Drs. Dennison and Ricardo and she has already had breakfast so after 2 PM today she will have electrical cardioversion and possible discharge. Patient is agreeable with this approach.. Objective - Vital Signs Vital signs: Vital Signs Temp 97.8 F 05/16/24 08:00 Pulse 94 05/16/24 08:00 Resp 18 05/16/24 08:00 BP 136/83 05/16/24 08:00 Pulse Ox 97 05/16/24 08:00 FiO2 Intake & Output 05/15/24 05/16/24 05/16/24 18:59 06:59 18:59 Intake Total 479.667 450 Balance 479.667 450 Weight 117.2 kg Intake: Intake, IV Titration 119.667 Amount Diltiazem 125 mg In 119.667 Sodium Chloride 0.9% 100 ml @ 5 MG/HR 5 mls/hr IV .Q24H [facility] Rx#:[id number] Oral 360 450 Other: Voiding Method Toilet # Voids 2 1 - Labs CBC & Chem 7: 05/15/24 06:08 05/15/24 06:08
[2024-05-16] MEDS: SODIUM CHLORIDE 0.9% 1,000 ML IV SCH (14:50)
[2024-05-16] MEDS: IV FLUID CONTINUATION 1,000 ML IV ONE ×2 (14:50→15:04)
[2024-05-16] MEDS ORDERED: PROPOFOL 10 MG/ML 20 ML VIAL IV ONE (14:59)
--- NOTE | 2024-05-16 15:07 | P.PCN ---
Description of Procedure: Procedure performed:Synchronized cardioversion Moderate conscious sedation: Moderate conscious sedation was supplied by anesthesia, see separate report. Complications: none Indications: Typical atrial flutter PROCEDURE: After the risks, benefits and alternatives of the above mentioned procedure was explained in detail with the patient, informed consent was obtained. Patient was brought to the lab in a fasting state. Patient was given sedation by anesthesia, see separate report. Patient had been on anticoagulation without interruption for > 30 days. Patient underwent synchronized cardioversion x 1 with 200J with resultant sinus rhythm. Patient tolerated the procedure well. Patient was transferred to the post procedure area in stable and satisfactory condition. Patient will likely be able to be discharged later today.
[2024-05-16 16:22] VITALS: BP 130/68; PULSE 63; RESP 18
--- NOTE | 2024-05-16 17:21 | P.DS ---
Providers Date of admission: 05/13/24 13:46 Expected date of discharge: 05/16/24 Attending physician: Mohsen Boggs Consults: 05/13/24 13:45 Consult Physician Routine Consulting Provider: Jeremy Alvarez Consult Reason/Comments: A-flutter RVR Do you want consulting provider notified?: Yes Primary care physician: Yash Suazo [facility] Course: Final diagnosis Atrial flutter with 2-1 AV block with fast ventricular rate history of atrial flutter ablation, status post cardioversion 05/16/2024 History of coronary artery disease with stenting Hypertension history Troponin 0.087 likely secondary to assessment #1 Hyperlipidemia Morbid obesity with a BMI of 41.8 GI prophylaxis DVT prophylaxis Full code Discharge disposition Patient is being discharged in a stable condition with guarded prognosis to home. Patient will follow-up with Dr. Suazo in the outpatient setting upon discharge. Patient is to continue with current cardiac medications and outpatient follow-up with Dr. Dennison as well as primary estimating manager Dr. Silva as scheduled. Total time taken is greater than 35 minutes. Hospital course This is a 74-year-old female who was recently admitted with feelings of palpitations with ongoing symptoms over the last few days progressively getting worse. Patient with history of atrial fibrillation with a 2-1 AV block with fast ventricular rate being closely monitored with cardiology following. Attempting Cardizem and amiodarone and was unsuccessful and patient ultimately underwent cardioversion with Dr. Silva today. Patient is currently in sinus rhythm and will continue on metoprolol on discharge. Patient has been cleared by cardiology for discharge home today. Please refer to other consultation notes for further HPI. Currently no reports of chest pain, shortness of breath, or palpitations. Patient is afebrile. No reports of nausea or vomiting and patient is tolerating diet. Patient will be discharged home today. Guarded prognosis Physical exam: Gen: This is a 74-year-old female who is awake, alert and oriented x 3, well- developed, elderly appearing, morbidly obese female HEENT: Head is atraumatic, normocephalic. Pupils equal, round. Sclerae is anicteric. NECK: Supple. No JVD. No lymphadenopathy. No thyromegaly. LUNGS: Clear to auscultation. No wheezes or rhonchi. No intercostal retractions. HEART: S1, S2 are muffled ABDOMEN: Soft. Obese bowel sounds are present. No masses. No tenderness. EXTREMITIES: No pedal edema. No calf tenderness. NEUROLOGICAL: Patient is awake, alert and oriented x3. Cranial nerves 2 through 12 are grossly intact. Please refer to medication reconciliation sheet for a list of medications. The impression and plan of care has been dictated by Kayli Parrish, Nurse Practitioner as directed. Dr. Ambrose Carranza MD I have performed a history and examination and MDM of this patient, discussed the same with the dictator, and agree with the dictator's assessment and plan as written ,documented as a scribe. Based on total visit time, I have performed more than 50% of the visit. Patient Condition at Discharge: Stable Plan - Discharge Summary Discharge Rx Participant: No New Discharge Prescriptions: New Losartan [Cozaar] 25 mg PO DAILY #30 tab Aspirin 81 mg PO DAILY #30 tab Dapagliflozin Propanediol [Farxiga] 10 mg PO DAILY #30 tab Atorvastatin [Lipitor] 40 mg PO HS #30 tab Metoprolol Tartrate [Lopressor] 50 mg PO TID #90 tab Ezetimibe [Zetia] 10 mg PO DAILY #30 tab Continue Apixaban [Eliquis] 5 mg PO BID Evolocumab [Repatha Sureclick] 140 mg SQ Q14D Potassium Gluconate 500mg 500 mg PO BID Tiotropium 2.5 Mcg/Puff [Spiriva Respimat 2.5 Mcg] 1 puff INHALATION RT-DAILY PRN PRN Reason: Shortness Of Breath Sucralfate [Carafate] 1 gm PO TID Pantoprazole [Protonix] 40 mg PO DAILY Sertraline HCl [Zoloft] 50 mg PO HS Levothyroxine Sodium 25 mcg PO DAILY Furosemide [Lasix] 20 mg PO DAILY Magnesium Gluconate [Magonate] 500 mg PO DAILY Estrogen,Con/M-Progest Acet [Prempro 0.3 mg-1.5 mg Tablet] 1 tab PO DAILY Discontinued Losartan [Cozaar] 75 mg PO DAILY Metoprolol Tartrate [Lopressor] 12.5 mg PO DAILY Discharge Medication List Apixaban [Eliquis] 5 mg PO BID 08/26/21 [History] Furosemide [Lasix] 20 mg PO DAILY 08/26/21 [History] Levothyroxine Sodium 25 mcg PO DAILY 08/26/21 [History] Pantoprazole [Protonix] 40 mg PO DAILY 08/26/21 [History] Sertraline HCl [Zoloft] 50 mg PO HS 08/26/21 [History] Sucralfate [Carafate] 1 gm PO TID 08/26/21 [History] Evolocumab [Repatha Sureclick] 140 mg SQ Q14D 11/10/21 [History] Magnesium Gluconate [Magonate] 500 mg PO DAILY 11/10/21 [History] Potassium Gluconate 500mg 500 mg PO BID 07/19/22 [History] Estrogen,Con/M-Progest Acet [Prempro 0.3 mg-1.5 mg Tablet] 1 tab PO DAILY 05/13/24 [History] Tiotropium 2.5 Mcg/Puff [Spiriva Respimat 2.5 Mcg] 1 puff INHALATION RT-DAILY PRN 05/13/24 [History] Aspirin 81 mg PO DAILY #30 tab 05/16/24 [Rx] Atorvastatin [Lipitor] 40 mg PO HS #30 tab 05/16/24 [Rx] Dapagliflozin Propanediol [Farxiga] 10 mg PO DAILY #30 tab 05/16/24 [Rx] Ezetimibe [Zetia] 10 mg PO DAILY #30 tab 05/16/24 [Rx] Losartan [Cozaar] 25 mg PO DAILY #30 tab 05/16/24 [Rx] Metoprolol Tartrate [Lopressor] 50 mg PO TID #90 tab 05/16/24 [Rx] Follow up Appointment(s)/Referral(s): Hollis Dennison MD [STAFF PHYSICIAN] - 1 Week Yash Suazo DO [Primary Care Provider] - 1-2 days Michael Silva DO [STAFF PHYSICIAN] - 1 Week Activity/Diet/Wound Care/Special Instructions: Activity limited until follow-up Follow-up with primary care provider on discharge Follow-up with cardiology outpatient Follow-up with Dr. Dennison outpatient Continue taking medications as prescribed Discharge Disposition: HOME SELF-CARE
== END 2024-05-16 22:00 | disposition home or self-care (01) | DRG 281 ==
LOC: EC 12:22 → 3SCARD 13:46
PROVIDERS: ADMIT Hospitalist; ATTEND Hospitalist
PROC: 5A2204Z Restoration of Cardiac Rhythm, Single (ICD-10-PCS; principal; 2024-05-16 07:30)
DX: I48.3 Typical atrial flutter (principal); Z68.41 Body mass index [BMI] 40.0-44.9, adult; I21.A1 Myocardial infarction type 2; E03.9 Hypothyroidism, unspecified; E66.01 Morbid (severe) obesity due to excess calories; I44.1 Atrioventricular block, second degree; E78.00 Pure hypercholesterolemia, unspecified; I42.9 Cardiomyopathy, unspecified; I48.19 Other persistent atrial fibrillation; I25.10 Atherosclerotic heart disease of native coronary artery without angina pectoris; I10 Essential (primary) hypertension; J45.909 Unspecified asthma, uncomplicated; I25.2 Old myocardial infarction; Z79.899 Other long term (current) drug therapy; Z79.890 Hormone replacement therapy; Z79.51 Long term (current) use of inhaled steroids; Z79.01 Long term (current) use of anticoagulants; Z95.5 Presence of coronary angioplasty implant and graft
CPT/HCPCS: 36415; 71046; 80048; 80053; 80061; 83036; 83735; 84443; 84484; 85025; 85610; 85730; 92960; 93005; 94760; 96365; 96366; 96367; 96368; 99291